=== PATIENT | female | born 1950 | race Caucasian/White ===

== ENCOUNTER 2016-04-24 12:33 | Inpatient (IN) ==
[2016-04-24] MEDS ORDERED: 0.9 % SODIUM CHLORIDE 1,000 ML IV ONE (12:59)
--- NOTE | 2016-04-24 13:07 | Emergency Department Note ---
General Adult HPI - General Chief complaint: Weakness Stated complaint: lethargy, weakness Time Seen by Provider: 04/24/16 12:49 Source: patient Mode of arrival: EMS - History of Present Illness HPI Narrative: Patient presents, increasing altered status and weakness., Brought in from home. Concern by family as she was continues knocker oxygen off inadvertently. Recent epistaxis with cautery, pending visit with ENT. No further epistaxis. No cough about baseline, no pleurisy. Taking her meds as usual by report. Patient otherwise limited history due to somnolence. Family member at the bedside - Related Data Home Medications Medication Instructions Recorded Confirmed Aspirin [Lo-Dose Aspirin EC] 81 mg PO ONCE 11/10/15 04/24/16 Lubiprostone [Amitiza] 24 mcg PO BID 11/10/15 04/24/16 DULoxetine HCL [Cymbalta] 60 mg PO DAILY 11/11/15 04/24/16 Ipratropium/Albuterol Sulfate 1 puff INH QIDP 11/11/15 04/24/16 [Combivent] Lactulose [Enulose] 30 gm PO BID PRN 11/11/15 04/24/16 Nitroglycerin [Nitrostat] 0.4 mg SL Q5M PRN 11/11/15 04/24/16 oxyCODONE HCL/ACETAMINOPHEN 1 tab PO Q4H PRN MDD 5 11/11/15 04/24/16 [Percocet 10-325 mg Tablet] cholecalciferol (vitamin D3) 1,000 1,000 unit PO ONCE 02/11/16 04/24/16 unit capsule ferrous sulfate 325 mg (65 mg 325 mg PO .QOD tab 02/11/16 04/24/16 iron) tablet clopidogrel 75 mg tablet 75 mg PO QDAY 90 Days 04/13/16 04/24/16 Previous Rx's Medication Instructions Recorded LORazepam [Ativan] 0.5 mg PO Q4HP PRN #14 tab 11/15/15 fluticasone 200 mcg-vilanterol 25 1 inh INHALATION QDAY #30 each 12/16/15 mcg/dose powder for inhalation atorvastatin 10 mg tablet 10 mg PO QDAY #60 tab 01/20/16 potassium chloride ER 10 mEq 20 meq PO BID #120 tab 01/20/16 tablet,extended release torsemide 20 mg tablet 20 mg PO DAILY #30 tab 02/01/16 gabapentin 300 mg capsule 300 mg PO TID #90 cap 02/03/16 spironolactone 25 mg tablet 25 mg PO DAILY #30 tab 03/02/16 gabapentin 100 mg capsule 100 mg PO TID #90 cap 03/13/16 metolazone 5 mg tablet 5 mg PO QDAY #30 tab 03/14/16 linaclotide 290 mcg capsule 290 mcg PO ACB #30 cap 03/20/16 Allergies Allergy/AdvReac Type Severity Reaction Status Date / Time doxycycline [DOXYCYCLINE] AdvReac Intermediate GI Upset Verified 04/24/16 12:46 levofloxacin AdvReac Intermediate Itching Verified 04/24/16 12:46 morphine AdvReac Mild Nausea/Vomi Verified 04/24/16 12:46 ting Review of Systems All systems ED: reviewed and negative except as stated. Past Medical History - Past Medical History Attestation: Yes: The following information was validated with the patient. Medical history: Reports: arthritis, CHF, COPD, coronary artery disease, diabetes, hyperlipidemia, hypertension, renal disease, other Surgical history ED: Reports: appendectomy, cataract, hysterectomy, orthopedic, other, other Psychiatric history: Reports: anxiety, depression [employer] history: Reports: bilateral tubal ligation, other Family history: Reports: non-contributory - Social History smoking status: Current every day smoker Alcohol use: Reports: None Drug use: Reports: none Physical Exam - General Limitations: no limitations General appearance: obtunded (arouses to name, brief history) - Head Head exam: atraumatic - Eye Eye exam: Present: normal appearance - ENT ENT exam: normal exam, mucous membranes moist - Neck Neck exam: Present: normal inspection. Absent: lymphadenopathy - Respiratory Respiratory exam: Present: other (no labored breathing; short excursions; diminished breath sounds bilateral bases). Absent: respiratory distress - Cardiovascular Cardiovascular exam: Present: regular rate, normal rhythm - Abdominal Exam Abdominal exam: Present: soft. Absent: tenderness - Extremities Exam Extremities exam: Present: normal inspection. Absent: pedal edema - Back Exam Back exam: Present: normal inspection - Neurological Exam Neurological exam: Present: alert, oriented X3 - Psychiatric Psychiatric exam: Present: normal affect - Skin Skin exam: Present: warm, dry. Absent: cyanosis Course Vital Signs Temperature 97.6 F 04/24/16 12:41 Pulse Rate 94 H 04/24/16 12:41 Respiratory Rate 18 04/24/16 12:41 Blood Pressure 128/75 04/24/16 12:41 Pulse Oximetry (%) 100 04/24/16 12:41 Temperature 97.6 F 04/24/16 12:41 Pulse Rate 99 H 04/24/16 14:50 Respiratory Rate 20 04/24/16 14:50 Blood Pressure 136/62 04/24/16 14:50 Pulse Oximetry (%) 100 04/24/16 14:50 Medical Decision Making - Medical Records Medical records reviewed: Yes I reviewed the patient's medical records. - Lab Data Lab results reviewed: Yes I reviewed the patient's lab results. Result diagrams: 04/24/16 13:08 04/24/16 13:08 Lab Results 04/24/16 04/24/16 04/24/16 Range/Units 13:08 13:08 13:08 WBC 9.8 (4.5-11.0) K/mcL RBC 3.28 L (4.00-5.20) M/mcL Hgb 10.0 L (12.0-15.0) g/dL Hct 30.8 L (36.0-48.0) % MCV 94.1 (80.0-100.0) fL MCH 30.6 (26.0-34.0) pg MCHC 32.5 (31.0-36.0) g/dL RDW 15.0 H (11.5-14.5) % Plt Count 278 (140-440) K/mcL MPV 8.0 (7.4-10.4) fL Gran % 81.3 H (38.0-78.0) % Lymph % (Auto) 7.6 L (15.5-49.0) % Fleming % (Auto) 10.4 H (1.0-9.0) % Eos % (Auto) 0.6 (0.0-7.0) % Baso % (Auto) 0.1 (0.0-2.0) % Gran # 8.0 (1.8-8.0) K/mcL Lymph # 0.7 L (1.5-4.8) K/mcL Fleming # 1.0 H (0.1-0.9) K/mcL Eos # 0.1 (0.0-0.7) K/mcL Baso # 0 (0.0-0.3) K/mcL VBG Lactic Acid 0.9 (0.5-2.2) mmol/L Sodium 130 L (133-145) mmol/L Potassium 4.2 (3.3-5.1) mmol/L Chloride 79 L (96-108) mmol/L Carbon Dioxide 43 H* (22-30) mmol/L Anion Gap 8.0 (8-16) BUN 25 H (8-23) mg/dl Creatinine 1.0 (0.6-1.1) mg/dl GFR Calculation 58 Glucose 107 H (70-105) mg/dL Calcium 8.8 (8.6-10.4) mg/dl Total Bilirubin 0.6 (0.0-1.0) mg/dL AST 992 H (0-37) U/l ALT 738 H (0-40) U/l Alkaline Phosphatase 69 (39-117) U/L Total Protein 6.2 (5.9-8.4) gm/dL Albumin 3.9 (3.2-5.2) gm/dL Globulin 2.3 (2.2-3.7) gm/dL Albumin/Globulin Ratio 1.7 (1.0-2.3) - Radiology Data Radiology results reviewed: Yes I reviewed the patient's radiology results. left basilar pneumonia Disposition Clinical Impression: Hypercapnia, COPD exacerbation Left lower lobe pneumonia Qualifiers: Pneumonia type: due to unspecified organism Qualified Code(s): J18.1 - Lobar pneumonia, unspecified organism Disposition: Xfer As Inpt ([facility]) Condition: Fair Additional Instructions: DNR, DNI; willing for BiPAP Referrals: Dino Jenkins MD [Primary Care Provider] -
[2016-04-24] MEDS ORDERED: AZITHROMYCIN 250 MG TABLET PO ONE (13:31)
[2016-04-24] MEDS ORDERED: IPRATROPIUM/ALBUTEROL 3 ML AMPUL.NEB NEB ONE (13:31)
[2016-04-24] MEDS ORDERED: methylPREDNISolone SOD SUCC 125 MG/2 ML VIAL IV ONE (13:31)
[2016-04-24 13:53] LABS: Basophils # (Auto) 0 K/mcL (0.0-0.3); Basophils % (Auto) 0.1 % (0.0-2.0); Eosinophils # (Auto) 0.1 K/mcL (0.0-0.7); Eosinophils % (Auto) 0.6 % (0.0-7.0); Granulocytes % (Auto) 81.3 % (38.0-78.0); Lymphocytes # (Auto) 0.7 K/mcL (1.5-4.8); Lymphocytes % (Auto) 7.6 % (15.5-49.0); Mean Cell Volume 94.1 fL (80.0-100.0); Mean Corpuscular HGB Conc 32.5 g/dL (31.0-36.0); Mean Corpuscular Hemoglobin 30.6 pg (26.0-34.0); Monocytes % (Auto) 10.4 % (1.0-9.0); Platelet Count 278 K/mcL (140-440); RBC 3.28 M/mcL (4.00-5.20)
[2016-04-24 14:21] LABS: ALT/SGPT 738 U/l (0-40); Albumin 3.9 gm/dL (3.2-5.2); Albumin/Globulin Ratio 1.7 (1.0-2.3); Alkaline Phosphatase 69 U/L (39-117); Blood Urea Nitrogen 25 mg/dl (8-23)
--- NOTE | 2016-04-24 14:52 | XRay Report ---
HISTORY: Reason for Exam:AMS, hypoxia lethargy and weakness FINDINGS: There are is a subtle interstitial infiltrate above the left diaphragm and behind the left heart border. Thin band of discoid atelectasis has developed above the right diaphragm. These are new finding since 12/21/15. The mid and upper lung chaves are clear. The heart size and pulmonary vasculature are normal. A moderate amount calcified plaque is present along the wall of a normal caliber aorta. 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 This was confirmed on a prior chest CT. IMPRESSION: Mild interstitial infiltrate in the left lower lobe which could be atelectasis or pneumonia. Interpreted and Authenticated by: Earl Peralta 04/24/16
[2016-04-24] MEDS ORDERED: cefTRIAXone 1 GM in DEXTROSE 5% IN WATER 50 ML IV ONE (14:59)
[2016-04-24] MEDS ORDERED: NITROGLYCERIN 0.4 MG TAB.SUBL SL PRN (16:49)
[2016-04-24] MEDS ORDERED: ONDANSETRON 4 MG/2 ML VIAL IV PRN (16:49)
[2016-04-24] MEDS ORDERED: LORazepam 0.5 MG TABLET PO PRN (16:49)
[2016-04-24] MEDS ORDERED: ACETAMINOPHEN 325 MG TABLET PO PRN (16:49)
[2016-04-24] MEDS ORDERED: VANCOMYCIN PER PHARMACY IV ONE (16:49)
[2016-04-24] MEDS ORDERED: ACETAMINOPHEN 1,000 MG/100 ML BOTTLE IV PRN (16:49)
[2016-04-24 17:57] LABS: Hepatitis A Antibody IgM NON REACTIVE (NEGATIVE); Hepatitis B Core IgM NON REACTIVE (NEGATIVE); Hepatitis B Surface Antigen NEGATIVE (NEGATIVE); Hepatitis C Virus Antibody NON REACTIVE (NEGATIVE)
[2016-04-24] MEDS: IPRATROPIUM/ALBUTEROL 3 ML AMPUL.NEB NEB SCH ×2 (18:55→22:42)
[2016-04-24] MEDS: 0.9 % SODIUM CHLORIDE 1,000 ML IV SCH (18:58)
[2016-04-24] MEDS: BUDESONIDE 0.5 MG/2 ML AMPUL.NEB NEB SCH (18:59)
[2016-04-24] MEDS ORDERED: LEVOFLOXACIN 750 MG/150 ML BAG IV SCH (19:00)
[2016-04-24] MEDS ORDERED: PIPERACILLIN SODIUM/TAZOBACTAM 3.375 GM VIAL IV ONE (19:09)
[2016-04-24] MEDS ORDERED: VANCOMYCIN 500 MG VIAL ONE (19:10)
[2016-04-24] MEDS: PIPERACILLIN SODIUM/TAZOBACTAM 3.375 GM in DEXTROSE 5% IN WATER 50 ML IV SCH (19:18)
[2016-04-24] MEDS ORDERED: VANCOMYCIN 1,000 MG in 0.9 % SODIUM CHLORIDE 250 ML IV ONE (20:00)
[2016-04-24] MEDS ORDERED: LACTULOSE 20 GM/30 ML ORAL.SOL PO PRN (21:00)
[2016-04-24] MEDS: methylPREDNISolone SOD SUCC 125 MG/2 ML VIAL IV SCH (21:35)
[2016-04-24] MEDS: HEPARIN 5,000 UNIT/ML VIAL SQ SCH (21:35)
[2016-04-24] MEDS: DOCUSATE SODIUM 100 MG CAPSULE PO SCH (21:35)
[2016-04-24] MEDS: SENNOSIDES/DOCUSATE SODIUM 1 TAB TABLET PO SCH (21:35)
[2016-04-24] MEDS: 0.9 % SODIUM CHLORIDE 10 ML SYRINGE IV SCH (21:36)
[2016-04-24] MEDS: Lubiprostone [Amitiza] 24 mcg Cap PO SCH (21:36)
[2016-04-24] MEDS: GABAPENTIN 100 MG CAPSULE PO SCH (21:56)
[2016-04-24] MEDS: ATORVASTATIN 20 MG TABLET PO SCH (21:57)
[2016-04-24] MEDS: GABAPENTIN 300 MG CAPSULE PO SCH (21:57)
[2016-04-24] MEDS ORDERED: GABAPENTIN 300 MG CAPSULE ONE (22:03)
[2016-04-24] MEDS ORDERED: GABAPENTIN 100 MG CAPSULE PO ONE (22:03)
[2016-04-24] MEDS ORDERED: LORazepam 2 MG/ML VIAL IV PRN (22:35)
[2016-04-24] MEDS ORDERED: LORazepam 2 MG/ML VIAL ONE (22:50)
[2016-04-25] MEDS ORDERED: LORazepam 2 MG/ML VIAL ONE ×2 (00:15→00:57)
[2016-04-25] MEDS ORDERED: PIPERACILLIN SODIUM/TAZOBACTAM 3.375 GM VIAL IV ONE ×2 (00:28→05:43)
[2016-04-25] MEDS: PIPERACILLIN SODIUM/TAZOBACTAM 3.375 GM in DEXTROSE 5% IN WATER 50 ML IV SCH ×5 (00:29→23:24)
[2016-04-25] MEDS: IPRATROPIUM/ALBUTEROL 3 ML AMPUL.NEB NEB SCH ×6 (02:46→22:54)
[2016-04-25 05:35] LABS: Mean Cell Volume 94.2 fL (80.0-100.0); Mean Corpuscular HGB Conc 32.7 g/dL (31.0-36.0); Mean Corpuscular Hemoglobin 30.8 pg (26.0-34.0); Platelet Count 282 K/mcL (140-440); RBC 3.52 M/mcL (4.00-5.20); Red Cell Distribution Width 14.6 % (11.5-14.5)
[2016-04-25] MEDS: methylPREDNISolone SOD SUCC 125 MG/2 ML VIAL IV SCH ×3 (05:46→23:24)
[2016-04-25] MEDS: 0.9 % SODIUM CHLORIDE 10 ML SYRINGE IV SCH ×4 (05:47→23:30)
[2016-04-25 06:17] LABS: ALT/SGPT 556 U/l (0-40); Albumin 3.9 gm/dL (3.2-5.2); Albumin/Globulin Ratio 1.6 (1.0-2.3); Alkaline Phosphatase 71 U/L (39-117); Bilirubin,Direct < 0.2 mg/dL (0.0-0.3); Blood Urea Nitrogen 18 mg/dl (8-23); Gamma Glutamyl Transpeptidase 11 U/L (5-36); Magnesium 1.7 mg/dL (1.6-2.5); Phosphorous 2.5 mg/dL (2.7-4.5); Uric Acid 4.3 mg/dL (2.5-8.0)
[2016-04-25 06:27] LABS: Anisocytosis 1+ (NONE SEEN); Lymphocytes % 6 % (15-49); Monocytes % (Manual) 4 % (1-9); Platelet Estimate NORMAL (NORMAL); RBC Morphology ABNORM (NORMAL); Segmented Neutrophils % 89 % (38-78)
--- NOTE | 2016-04-25 06:54 | History and Physical Report ---
DATE OF ADMISSION: 04/24/2016 PRIMARY CARE PHYSICIAN: Kurt Jenkins MD REASON FOR ADMISSION: Worsening shortness of breath, weakness, cough, fever and mental status change. HISTORY OF CHIEF COMPLAINT: The patient is a 66-year-old with known history of advanced COPD with baseline CO2 around 70s. The patient comes to [facility] ER with 5 to 6 days onset of worsening shortness of breath with dyspnea on exertion and increased productive sputum along with purulent sputum. The patient denies any sick contacts. She has been up to date on vaccination status and sees primary care physician, Dr. Jenkins. Her last flare was in November of this year. She has been chronically on home oxygen. Other than that, she denies headache, photophobia, or myalgias. She endorses to increasing fever, weakness, confusion, but denies dysuria. She endorses to on and off diarrhea. She denies chest pain, nausea, vomiting, skin rash, joint swelling and pain. REVIEW OF SYSTEMS: Ten-point review of system was performed and negative except the ones discussed above. HOSPITAL COURSE: Initial workup in the ER was significant for left lower lobe infiltrate along with blood gas 7.42/82 and significant work of breathing requiring 15 liters oxygen and signs of SIRS. Hospitalist Service was consulted for the same. The patient was started on BiPAP. PAST MEDICAL HISTORY: 1. History of O2 dependent COPD, GOLD stage III/stage IV. 2. Chronic pain. 3. Hyperlipidemia. 4. GERD. 5. Hypertension. 6. Neuropathy. 7. Anxiety disorder. 8. Irritable bowel syndrome. CURRENT MEDICATIONS: 1. Aspirin 81. 2. Duloxetine 60 mg. 3. DuoNeb as needed. 4. Lorazepam 0.5 mg q.4h. 5. Lactulose 30 mg b.i.d. 6. Lubiprostone 24 mg b.i.d. 7. Nitroglycerin 0.4 mg q.5h. 8. Atorvastatin 10 mg daily. 9. Plavix 75 mg daily. 10. Advair inhaled b.i.d. 11. Gabapentin 100 mg t.i.d./300 mg t.i.d. 12. Linaclotide 290 a.c. breakfast. 13. Metolazone 5 mg daily. 14. Spironolactone 25 mg daily. 15. Potassium 20 mEq daily. 16. Torsemide 20 mg daily. ALLERGIES: Known to: 1. DOXYCYCLINE. 2. CIPROFLOXAXIN. 3. MORPHINE. SOCIAL HISTORY: The patient is to her , Jesus and lives in [place]. She has a granddaughter who lives nearby. She is actively smoking E-cigarettes. No history of alcoholism. She is a FULL CODE STATUS. She sees primary care physician, Dr. Jenkins. FAMILY HISTORY: Significant for brother and sister with diabetes; CVA in brother; father coronary artery disease. PHYSICAL EXAMINATION: GENERAL: The patient is remarkably short of breath and unable to talk in full sentences. BMI 31. Height 5 feet 1 inch. VITAL SIGNS: Blood pressure 120/75, respiration rate 21, temperature 97.6, pulse 97 and sats 100% on 15 liters nonrebreather. HEENT: Pupils symmetric. Oral cavity is dry. No ear or nose discharge. Head is normocephalic and atraumatic. NECK: No lymphadenopathy. HEART: S1, S2 regular rhythm. Ejection systolic murmur grade 1. Diminished breath sounds at bases. ABDOMEN: Soft and nontender. LOWER EXTREMITIES: No cyanosis or clubbing. No joint swelling. SKIN: No suspicious lesion. PSYCH: Alert and cooperative, moderate anxiety, but no hallucination. NEURO: Moving all four extremities. LABS AND IMAGING: ABG 7.42/82/3.9 on 15 liters oxygen. X-ray chest: Left lower lobe infiltrate, white count 9.8, hemoglobin 10, platelets 278, lactic acid 0.9. Sodium 130, potassium 4.2, creatinine 1, BUN 25, bicarbonate 43, AST 992, ALT 738. ASSESSMENT AND PLAN: A 66-year-old with known history of COPD, admitted with acute respiratory distress, COPD exacerbation, left lower lobe pneumonia. 1. Acute COPD exacerbation. Start patient on steroids, bronchodilators, pulmonary toilet. 2. Hypercapnic respiratory failure, increased work of breathing. Start patient on noninvasive ventilation. The patient is refusing mechanical ventilation at this time. We will check serial chest imaging and blood gases. 3. Left lower lobe pneumonia with recent healthcare exposure. Start Zosyn, vancomycin and Levaquin and deescalate based on cultures. Await sputum exam, procalcitonin. 4. Elevated LFTs, unclear etiology. Check hepatitis panel, unlikely core pulmonale as last echo from 06/2015 no evidence of pulmonary hypertension. 5. Other prior medical issues including: a. History of neuropathy. Continue gabapentin. b. Anxiety disorder. Continue Duloxetine. c. Coronary artery disease. Continue aspirin, statin and Plavix. PLAN FOR TODAY: 1. Admit as inpatient in ICU in light of [place] [facility] [place] score of 18. 2. Noninvasive ventilation. 3. Antibiotic coverage. 4. Hepatitis workup. 5. Preexisting medical condition management as above. AA:waldo Job ID: [id number] Doc ID: [id number] Flaco Jenkins MD [facility]
[2016-04-25] MEDS: BUDESONIDE 0.5 MG/2 ML AMPUL.NEB NEB SCH ×2 (07:38→18:59)
[2016-04-25] MEDS: PANTOPRAZOLE 40 MG TABLET PO SCH (07:56)
[2016-04-25] MEDS: METOLAZONE 2.5 MG TABLET PO SCH (08:00)
[2016-04-25] MEDS: POTASSIUM CHLORIDE 20 MEQ TABLET PO SCH ×2 (08:00→17:40)
[2016-04-25] MEDS: CLOPIDOGREL 75 MG TABLET PO SCH (10:48)
[2016-04-25] MEDS: DOCUSATE SODIUM 100 MG CAPSULE PO SCH ×2 (10:49→20:26)
[2016-04-25] MEDS: MULTIVIT,THER IRON,CA,FA & MIN 1 TABLET PO SCH (10:49)
[2016-04-25] MEDS: TORSEMIDE 10 MG TABLET PO SCH (10:49)
[2016-04-25] MEDS: ASPIRIN 81 MG TAB.CHEW PO SCH (10:49)
[2016-04-25] MEDS: SPIRONOLACTONE 25 MG TABLET PO SCH (10:49)
[2016-04-25] MEDS: HEPARIN 5,000 UNIT/ML VIAL SQ SCH ×2 (10:50→20:26)
[2016-04-25] MEDS: Lubiprostone [Amitiza] 24 mcg Cap PO SCH ×2 (10:50→20:26)
[2016-04-25] MEDS: Fluticasone/Vilanterol [Breo Ellipta] 200-25 Mcg Inhaler INH SCH (10:50)
[2016-04-25] MEDS: DULoxetine 30 MG CAPSULE PO SCH (10:53)
[2016-04-25] MEDS: GABAPENTIN 100 MG CAPSULE PO SCH ×3 (10:54→20:26)
[2016-04-25] MEDS: GABAPENTIN 300 MG CAPSULE PO SCH ×3 (10:54→20:26)
--- NOTE | 2016-04-25 13:32 | Internal Med Progress Note ---
Medical - PN: Subj Patient information: Note initiated : 04/25/16 at 1:32 pm Service Date, if different from initiated Date: [] Patient: Loraine Howard 66 y/o F admitted on 04/24/16 for lethargy, weakness. Chief Complaint: [] Interval history: this patient is a 66-year-old femalewith known advanced COPD and baseline CO2 in the 70s. She presented to the emergency room yesterday with increasing shortness of breath and productive cough.ER workup showed left lower lobe infiltrate, and elevated CO2 of 82, with increased work of breathing.he patient was admitted and started on IV steroids, bronchodilators, BiPAP to help support her breathing, IV antibiotics.she was initially started on Zosyn, vancomycin, and Levaquin but the Levaquin was canceled when it was discovered she was allergic to this. the patient became somewhat agitated last night, and tried to pull out her lines etc. Because nursing staff was concerned about her past history of alcohol use, she was started on the CIWA protocol and was given IV Ativan. This did help her sleep overnight, but she is still quite groggy this morning. She seems to be tolerating the BiPAP. She does report that she continues to have chronic diffuse pain. She otherwise seems to deny chest pain, nausea or vomiting. She thinks her breathing is a little bit better. she was weaned from the BiPAP and 35% FiO2, over 2a nasal cannula at 1.5 L. Follow-up ABG on those settingsshowed pH of 7.43, CO2 of 76, O2 of 62, 92% saturated past medical history is notable for COPD, chronic pain with possible medication overuse, hyperlipidemia, GERD, hypertension, neuropathy, anxiety, IBS allergies include doxycycline, ciprofloxacin, Levaquin, morphinenext Social history the patient smokes E cigarettes. She denies alcohol use, although staff believe that she has been using alcohol recently. - Constitutional Vitals: Vital Signs Temp Pulse Resp BP Pulse Ox 97.4 F L 97 H 22 127/67 90 04/25/16 12:00 04/25/16 11:17 04/25/16 13:00 04/25/16 13:00 04/25/16 13:00 Period Temp Pulse Resp BP Sys/Cano Pulse Ox Last 24 Hr 97.4 F-99.2 F 87-106 14-25 105-152/64-94 88-97 Intake and Output 04/24/16 04/25/16 04/25/16 21:59 05:59 13:59 Intake Total 572 / 572 833 / 833 Output Total 250 / 250 1350 / 1350 720 / 720 Balance -250 / 800 -778 / -778 113 / 113 Weight 169 lb 4.8 oz Intake & Output: Intake & Output 04/24/16 04/25/16 04/25/16 21:59 05:59 13:59 Intake Total 572 / 572 833 / 833 Output Total 250 / 250 1350 / 1350 720 / 720 Balance -250 / 800 -778 / -778 113 / 113 Weight 169 lb 4.8 oz Intake: IV 542 / 542 333 / 333 Sodium Chloride 0.9% 1, 542 / 542 283 / 283 000 ml @ 50 mls/hr IV . Q20H SARI Rx#:[id number] Dextrose 5% in Water 50 50 / 50 ml @ 100 mls/hr IV Q6H SARI with Zosyn 3.375 gm Rx#:[id number] Oral 30 / 30 IV - Manual Only 500 / 500 Output: Urine Catheter Amount 1150 / 1150 720 / 720 Void Amount 250 / 250 200 / 200 Exam: on exam, she is fairly somnolent, although she will open her eyes to voice and touch. neck appears supple, without obvious JVD or lymphadenopathy. Cardiac exam showsregular rhythm. Lungs: Breath sounds are fairly decreased, but i do not hear definite rhonchi, rales, wheezes. Abdomen: Is soft and nontender. Extremities: Show no significant edema. Neurologic: Patient is fairly somnolent. Medical - PN: Obj Da - Labs CBC & Chem 7: 04/25/16 03:40 04/25/16 03:40 Labs: Abnormal Lab Results 04/25/16 04/25/16 03:40 03:40 RBC 3.52 L Hgb 10.8 L Hct 33.2 L RDW 14.6 H Seg Neutrophils % 89 H Lymphocytes % 6 L RBC Morphology Abnorm A Anisocytosis 1+ A Sodium 132 L Chloride 82 L Carbon Dioxide 39 H Glucose 138 H Phosphorus 2.5 L AST 433 H ALT 556 H Lactate Dehydrogenase 280 H hepatitis screen is negative for hepatitis A, B, C. MRSA screen is negative. blood cultures are negative so far. April 24, 2016, chest x-ray: Shows mild interstitial infiltrate in the left lower lobe, infiltrate versus atelectasis.here is also a thin BM of discoid atelectasis noted above the right diaphragm. 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 Meds: Medications Acetaminophen (Tylenol) 650 mg PO Q4-6HP PRN PRN Reason: PAIN/FEVER > 101 Albuterol/Ipratropium (Duoneb) 3 ml NEB Q4HRT [facility] Last Admin: 04/25/16 11:14 Dose: 3 ml Aspirin (Aspirin) 81 mg PO DAILY [facility] Last Admin: 04/25/16 10:49 Dose: 81 mg Atorvastatin Calcium (Lipitor) 10 mg PO HS [facility] Last Admin: 04/24/16 21:57 Dose: 10 mg Budesonide (Pulmicort) 0.5 mg NEB Q12 [facility] Last Admin: 04/25/16 07:38 Dose: 0.5 mg Clopidogrel Bisulfate (Plavix) 75 mg PO QDAY [facility] Last Admin: 04/25/16 10:48 Dose: 75 mg Docusate Sodium (Colace) 100 mg PO BID [facility] Last Admin: 04/25/16 10:49 Dose: 100 mg Duloxetine HCl (Cymbalta) 60 mg PO DAILY [facility] Last Admin: 04/25/16 10:53 Dose: 60 mg Gabapentin (Neurontin) 100 mg PO TID [facility] Last Admin: 04/25/16 10:54 Dose: Not Given Gabapentin (Neurontin) 300 mg PO TID [facility] Last Admin: 04/25/16 10:54 Dose: Not Given Heparin Sodium (Porcine) (Heparin) 5,000 unit SQ Q12 [facility] Last Admin: 04/25/16 10:50 Dose: 5,000 unit Sodium Chloride (Sodium Chloride 0.9%) 1,000 mls @ 50 mls/hr IV .Q20H [facility] Stop: 04/27/16 04:48 Last Infusion: 04/25/16 13:00 Dose: 50 mls/hr Acetaminophen (Ofirmev) 1,000 mg in 100 mls @ 200 mls/hr IV Q6HP PRN PRN Reason: PAIN/FEVER > 101 Piperacillin Sod/Tazobactam (Sod 3.375 gm/ Dextrose) 50 mls @ 100 mls/hr IV Q6H [facility] Last Infusion: 04/25/16 13:00 Dose: Infused Vancomycin HCl 1,000 mg/ (Sodium Chloride) 250 mls @ 250 mls/hr IV DAILY [facility] Iron Carb/Multivit/[place]/Folic Acid (Multivitamin W/Minerals) 1 tab PO DAILY [facility] Last Admin: 04/25/16 10:49 Dose: 1 tab Lactulose (Cephulac) 20 gm PO BIDP PRN PRN Reason: Constipation Lorazepam (Ativan) 0.5 mg PO Q4HP PRN PRN Reason: ANXIETY/SEDATION Lorazepam (Ativan) 2 mg IV Q1HP PRN; Protocol PRN Reason: ANXIETY/SEDATION Last Admin: 04/24/16 22:39 Dose: 2 mg Methylprednisolone Sodium Succinate (Solu-Medrol) 62.5 mg IV Q8 [facility] Last Admin: 04/25/16 13:25 Dose: 62.5 mg Metolazone (Zaroxolyn) 5 mg PO DAILY@0830 [facility] Last Admin: 04/25/16 08:00 Dose: 5 mg Nitroglycerin (Nitrostat) 0.4 mg SL Q5M PRN PRN Reason: Chest Pain Ondansetron HCl (Zofran) 4 mg IV Q4-6HP PRN PRN Reason: Nausea And Vomiting Oxycodone/Acetaminophen (Percocet 10-325mg) 1 tab PO Q4H PRN PRN Reason: Pain Pantoprazole Sodium (Protonix) 40 mg PO QAMAC [facility] Last Admin: 04/25/16 07:56 Dose: 40 mg Fluticasone/Vilanterol [Breo Ellipta] 200-25 Mcg Inhaler 1 dose INH DAILY [facility] Last Admin: 04/25/16 10:50 Dose: Not Given Linaclotide [Linzess (] 290 Mcg Cap) 1 dose PO ACB [facility] Last Admin: 04/25/16 07:56 Dose: Not Given Lubiprostone [ (Amitiza] 24 Mcg Cap) 1 dose PO BID [facility] Last Admin: 04/25/16 10:50 Dose: Not Given Potassium Chloride (Kdur) 20 meq PO BIDCC [facility] Last Admin: 04/25/16 08:00 Dose: 20 meq Senna/Docusate Sodium (Senna Plus Tablet) 1 tab PO HS [facility] Last Admin: 04/24/16 21:35 Dose: 1 tab Sodium Chloride (Saline Flush) 10 ml IV Q8 [facility] Last Admin: 04/25/16 13:25 Dose: 10 ml Spironolactone (Aldactone) 25 mg PO DAILY [facility] Last Admin: 04/25/16 10:49 Dose: 25 mg Torsemide (Demadex) 20 mg PO DAILY [facility] Last Admin: 04/25/16 10:49 Dose: 20 mg Medical - PN: A/P - Time Spent With Patient Total time spent is greater than 50% in coordination of care (as documented) at patient's floor/unit and/or counseling patient: - Narrative A/P Narrative: 1. Pulmonary. - this patient presents with hypercapnic respiratory failure, consistent with COPD exacerbation with superimposed pneumonia. she has done well overnight on BiPAP and was weaned back to oxygen via nasal cannula today.so far she appears to be tolerating this. -Continue IV antibiotics and steroids, bronchodilators, pulmonary toilet. #2. Infectious disease. Blood and sputum cultures have been ordered.chest x-ray consistent with left lower lobe pneumonia. We will need to clarify if the patient is up-to-date on flu and pneumonia vaccines. #3. . the patient was uncomfortable during the night, and was found to have an elevated postvoid residual, so Lackey catheter was placed. #4. Chronic pain. this patient takes Percocet at home for chronic pain, and there is concern that she overuses this. after the course of the afternoon the patient has had some increasing ectopy on her heart monitor, and has been intermittently confused. There is some concern that she could be having some withdrawal from oxycodone, given that she uses one Percocet about every4 hours at home, according to her report.she also is a chronic smoker at home. we will add back when necessary Percocet as well as a nicotine patch, to see if this helpsher to relax. #5. CODE STATUS: Full code.the patient was unable to decide about ventilator management when she arrived here. #6. DVT prophylaxis:subcutaneous heparin. #7. History of coronary disease. Continue aspirin, statin, Plavix. this visit took approximately 40 minutes today,to review the patient's bullard and test results, interview and examine her, review her course and plan of care with nursing staff on multiple occasions, and write orders. Medical - PN: Qual - VTE Deep Vein Thrombosis/Pulmonary Embolism Present on Admission: No
[2016-04-25] MEDS: VANCOMYCIN 1,000 MG in 0.9 % SODIUM CHLORIDE 250 ML IV SCH (13:51)
[2016-04-25] MEDS ORDERED: MAGNESIUM SULFATE 8.12 MEQ in DEXTROSE 5% IN WATER 50 ML IV ONE (15:00)
[2016-04-25] MEDS: 0.9 % SODIUM CHLORIDE 1,000 ML IV SCH (20:11)
[2016-04-25] MEDS: oxyCODONE/APAP 10/325MG TABLET PO PRN (20:25)
[2016-04-25] MEDS: SENNOSIDES/DOCUSATE SODIUM 1 TAB TABLET PO SCH (20:26)
[2016-04-25] MEDS: ATORVASTATIN 20 MG TABLET PO SCH (20:26)
[2016-04-26] MEDS: IPRATROPIUM/ALBUTEROL 3 ML AMPUL.NEB NEB SCH ×6 (03:24→22:23)
[2016-04-26] MEDS: PIPERACILLIN SODIUM/TAZOBACTAM 3.375 GM in DEXTROSE 5% IN WATER 50 ML IV SCH ×4 (05:23→23:34)
[2016-04-26] MEDS: methylPREDNISolone SOD SUCC 125 MG/2 ML VIAL IV SCH ×3 (05:23→21:25)
[2016-04-26] MEDS: 0.9 % SODIUM CHLORIDE 10 ML SYRINGE IV SCH ×3 (05:41→21:25)
[2016-04-26 05:43] LABS: Mean Cell Volume 94.8 fL (80.0-100.0); Mean Corpuscular HGB Conc 32.2 g/dL (31.0-36.0); Mean Corpuscular Hemoglobin 30.5 pg (26.0-34.0); Platelet Count 310 K/mcL (140-440); RBC 3.59 M/mcL (4.00-5.20)
[2016-04-26 05:57] LABS: ALT/SGPT 366 U/l (0-40); Albumin 3.9 gm/dL (3.2-5.2); Albumin/Globulin Ratio 1.8 (1.0-2.3); Alkaline Phosphatase 62 U/L (39-117); Bilirubin,Direct < 0.2 mg/dL (0.0-0.3); Blood Urea Nitrogen 21 mg/dl (8-23); Gamma Glutamyl Transpeptidase 10 U/L (5-36); Magnesium 1.9 mg/dL (1.6-2.5)
[2016-04-26] MEDS: BUDESONIDE 0.5 MG/2 ML AMPUL.NEB NEB SCH ×3 (07:13→18:50)
[2016-04-26 07:26] LABS: Lymphocytes % 5 % (15-49); Monocytes % (Manual) 9 % (1-9); Platelet Estimate NORMAL (NORMAL); RBC Morphology NORMAL (NORMAL); Segmented Neutrophils % 86 % (38-78)
[2016-04-26] MEDS: PANTOPRAZOLE 40 MG TABLET PO SCH (07:32)
[2016-04-26] MEDS: METOLAZONE 2.5 MG TABLET PO SCH (08:08)
[2016-04-26] MEDS: POTASSIUM CHLORIDE 20 MEQ TABLET PO SCH ×2 (09:57→17:46)
[2016-04-26] MEDS: DOCUSATE SODIUM 100 MG CAPSULE PO SCH ×2 (09:58→20:39)
[2016-04-26] MEDS: DULoxetine 30 MG CAPSULE PO SCH (09:58)
[2016-04-26] MEDS: ASPIRIN 81 MG TAB.CHEW PO SCH (09:58)
[2016-04-26] MEDS: TORSEMIDE 10 MG TABLET PO SCH (09:58)
[2016-04-26] MEDS: SPIRONOLACTONE 25 MG TABLET PO SCH (09:58)
[2016-04-26] MEDS: 0.9 % SODIUM CHLORIDE 1,000 ML IV SCH (09:58)
[2016-04-26] MEDS: GABAPENTIN 300 MG CAPSULE PO SCH ×3 (09:59→20:40)
[2016-04-26] MEDS: MULTIVIT,THER IRON,CA,FA & MIN 1 TABLET PO SCH (09:59)
[2016-04-26] MEDS: CLOPIDOGREL 75 MG TABLET PO SCH (09:59)
[2016-04-26] MEDS: Lubiprostone [Amitiza] 24 mcg Cap PO SCH ×2 (09:59→20:41)
[2016-04-26] MEDS: GABAPENTIN 100 MG CAPSULE PO SCH ×3 (09:59→20:40)
[2016-04-26] MEDS: HEPARIN 5,000 UNIT/ML VIAL SQ SCH ×2 (09:59→20:40)
[2016-04-26] MEDS: Fluticasone/Vilanterol [Breo Ellipta] 200-25 Mcg Inhaler INH SCH (10:15)
[2016-04-26] MEDS: NICOTINE 7 MG PATCH TOPICAL SCH (10:16)
[2016-04-26] MEDS: VANCOMYCIN 1,000 MG in 0.9 % SODIUM CHLORIDE 250 ML IV SCH (10:16)
--- NOTE | 2016-04-26 10:31 | Internal Med Progress Note ---
Medical - PN: Subj Patient information: Note initiated : 04/26/16 at 10:31 am Service Date, if different from initiated Date: [] Patient: Loraine Howard 66 y/o F admitted on 04/24/16 for lethargy, weakness. Chief Complaint: [] Interval history: April 25, 2016:this patient is a 66-year-old female with known advanced COPD and baseline CO2 in the 70s. She presented to the emergency room yesterday with increasing shortness of breath and productive cough.ER workup showed left lower lobe infiltrate, and elevated CO2 of 82, with increased work of breathing.he patient was admitted and started on IV steroids, bronchodilators, BiPAP to help support her breathing, IV antibiotics.she was initially started on Zosyn, vancomycin, and Levaquin but the Levaquin was canceled when it was discovered she was allergic to this. the patient became somewhat agitated last night, and tried to pull out her lines etc. Because nursing staff was concerned about her past history of alcohol use, she was started on the CIWA protocol and was given IV Ativan. This did help her sleep overnight, but she is still quite groggy this morning. She seems to be tolerating the BiPAP. She does report that she continues to have chronic diffuse pain. She otherwise seems to deny chest pain, nausea or vomiting. She thinks her breathing is a little bit better. she was weaned from the BiPAP and 35% FiO2, over 2a nasal cannula at 1.5 L. Follow-up ABG on those settingsshowed pH of 7.43, CO2 of 76, O2 of 62, 92% saturated April 26, 2016: -She patient was again weaned off her BiPAP during the night and is now maintaining an O2 saturation of around 90% on 2 L nasal cannula. She is more awake and alert today but still has intermittent episodes of somnolence. She cannot quite recall where she was this morning. She denies pain at this time, but admits that she was taking pain medication every 4-6 hours at home, but cannot really articulate why at this time. Her has indicated to the nursing staff that he really cannot keep track of when she takes her medicines and when she does not. She has declined home health assistance in the past. -she continues to exhibit some ectopy on her monitor, but otherwise has clinically been fairly stable. he denies significant pain currently. She denies chest pain, and reports her breathing is better. She denies abdominal symptoms. past medical history is notable for COPD, chronic pain with possible medication overuse, hyperlipidemia, GERD, hypertension, neuropathy, anxiety, IBS allergies include doxycycline, ciprofloxacin, Levaquin, morphinenext Social history the patient smokes E cigarettes. She denies alcohol use, although staff believe that she has been using alcohol recently. - Constitutional Vitals: Vital Signs Temp Pulse Resp BP Pulse Ox 97.5 F L 92 H 17 117/71 91 04/26/16 08:00 04/26/16 09:00 04/26/16 09:00 04/26/16 09:00 04/26/16 09:00 Period Temp Pulse Resp BP Sys/Cano Pulse Ox Last 24 Hr 97.3 F-98.0 F 80-109 15-24 110-151/52-81 87-96 Intake and Output 04/25/16 04/26/16 04/26/16 21:59 05:59 13:59 Intake Total 485 / 485 938 / 938 50 / 50 Output Total 695 / 695 600 / 600 300 / 300 Balance -210 / -210 338 / 338 -250 / -250 Weight 166 lb 6.4 oz Intake & Output: Intake & Output 04/25/16 04/26/16 04/26/16 21:59 05:59 13:59 Intake Total 485 / 485 938 / 938 50 / 50 Output Total 695 / 695 600 / 600 300 / 300 Balance -210 / -210 338 / 338 -250 / -250 Weight 166 lb 6.4 oz Intake: IV 485 / 485 513 / 513 50 / 50 Sodium Chloride 0.9% 1, 133 / 133 463 / 463 0 / 0 000 ml @ 50 mls/hr IV . Q20H SARI Rx#:[id number] Dextrose 5% in Water 50 52 / 52 ml @ 52 mls/hr IV ONCE ONE with Magnesium Sulfate 8.12 Meq Rx#: [id number] Dextrose 5% in Water 50 50 / 50 50 / 50 50 / 50 ml @ 100 mls/hr IV Q6H SARI with Zosyn 3.375 gm Rx#:[id number] Sodium Chloride 0.9% 250 250 / 250 ml @ 250 mls/hr IV DAILY SARI with Vancomycin 1,000 mg Rx#:[id number] Oral 425 / 425 Output: Urine Catheter Amount 695 / 695 600 / 600 300 / 300 Exam: At the time that I saw her this morning, she was quite somnolent. she is able to open her eyes on command.Neck is supple without obvious lymphadenopathy or JVD. Cardiac exam regular rate and rhythm. Lungs: Show bilateral scattered crackles and wheezes, but no sensory muscle use. Abdomen: Is soft and nontender. Extremities: Show minimal edema. Neurologic: The patient continues to have intermittent somnolence, possibly related to pain medication, or hypercarbia. Medical - PN: Obj Da - Labs CBC & Chem 7: 04/26/16 04:15 04/26/16 04:15 Labs: Abnormal Lab Results 04/26/16 04/26/16 04/25/16 04:15 04:15 03:40 RBC 3.59 L Hgb 10.9 L Hct 34.0 L RDW 15.0 H Seg Neutrophils % 86 H Lymphocytes % 5 L RBC Morphology Anisocytosis Sodium 132 L Chloride 86 L 82 L Carbon Dioxide 41 H* 39 H Glucose 124 H 138 H Phosphorus 2.5 L AST 148 H 433 H ALT 366 H 556 H Lactate Dehydrogenase 280 H 04/25/16 03:40 RBC 3.52 L Hgb 10.8 L Hct 33.2 L RDW 14.6 H Seg Neutrophils % 89 H Lymphocytes % 6 L RBC Morphology Abnorm A Anisocytosis 1+ A Sodium Chloride Carbon Dioxide Glucose Phosphorus AST ALT Lactate Dehydrogenase hepatitis screen is negative for hepatitis A, B, C. MRSA screen is negative. blood cultures are negative so far. April 24, 2016, chest x-ray: Shows mild interstitial infiltrate in the left lower lobe, infiltrate versus atelectasis.here is also a thin BM of discoid atelectasis noted above the right diaphragm. 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 Meds: Medications Acetaminophen (Tylenol) 650 mg PO Q4-6HP PRN PRN Reason: PAIN/FEVER > 101 Albuterol/Ipratropium (Duoneb) 3 ml NEB Q4HRT [facility] Last Admin: 04/26/16 07:13 Dose: 3 ml Aspirin (Aspirin) 81 mg PO DAILY [facility] Last Admin: 04/26/16 09:58 Dose: 81 mg Atorvastatin Calcium (Lipitor) 10 mg PO HS [facility] Last Admin: 04/25/16 20:26 Dose: 10 mg Budesonide (Pulmicort) 0.5 mg NEB Q12 [facility] Last Admin: 04/26/16 07:13 Dose: 0.5 mg Clopidogrel Bisulfate (Plavix) 75 mg PO QDAY [facility] Last Admin: 04/26/16 09:59 Dose: 75 mg Docusate Sodium (Colace) 100 mg PO BID [facility] Last Admin: 04/26/16 09:58 Dose: 100 mg Duloxetine HCl (Cymbalta) 60 mg PO DAILY [facility] Last Admin: 04/26/16 09:58 Dose: 60 mg Gabapentin (Neurontin) 100 mg PO TID [facility] Last Admin: 04/26/16 09:59 Dose: 100 mg Gabapentin (Neurontin) 300 mg PO TID [facility] Last Admin: 04/26/16 09:59 Dose: 300 mg Heparin Sodium (Porcine) (Heparin) 5,000 unit SQ Q12 [facility] Last Admin: 04/26/16 09:59 Dose: 5,000 unit Sodium Chloride (Sodium Chloride 0.9%) 1,000 mls @ 50 mls/hr IV .Q20H [facility] Stop: 04/27/16 04:48 Last Admin: 04/26/16 09:58 Dose: Not Given Acetaminophen (Ofirmev) 1,000 mg in 100 mls @ 200 mls/hr IV Q6HP PRN PRN Reason: PAIN/FEVER > 101 Piperacillin Sod/Tazobactam (Sod 3.375 gm/ Dextrose) 50 mls @ 100 mls/hr IV Q6H [facility] Last Infusion: 04/26/16 06:21 Dose: Infused Vancomycin HCl 1,000 mg/ (Sodium Chloride) 250 mls @ 250 mls/hr IV DAILY [facility] Last Admin: 04/26/16 10:16 Dose: 125 mls/hr Iron Carb/Multivit/Brick Extruder Operator/Folic Acid (Multivitamin W/Minerals) 1 tab PO DAILY [facility] Last Admin: 04/26/16 09:59 Dose: 1 tab Lactulose (Cephulac) 20 gm PO BIDP PRN PRN Reason: Constipation Lorazepam (Ativan) 0.5 mg PO Q4HP PRN PRN Reason: ANXIETY/SEDATION Lorazepam (Ativan) 2 mg IV Q1HP PRN; Protocol PRN Reason: ANXIETY/SEDATION Last Admin: 04/24/16 22:39 Dose: 2 mg Methylprednisolone Sodium Succinate (Solu-Medrol) 62.5 mg IV Q8 [facility] Last Admin: 04/26/16 05:23 Dose: 62.5 mg Metolazone (Zaroxolyn) 5 mg PO DAILY@0830 [facility] Last Admin: 04/26/16 08:08 Dose: 5 mg Nicotine (Nicoderm) 7 mg TOPICAL DAILY@1000 [facility] Last Admin: 04/26/16 10:16 Dose: Not Given Nitroglycerin (Nitrostat) 0.4 mg SL Q5M PRN PRN Reason: Chest Pain Ondansetron HCl (Zofran) 4 mg IV Q4-6HP PRN PRN Reason: Nausea And Vomiting Oxycodone/Acetaminophen (Percocet 10-325mg) 1 tab PO Q4H PRN PRN Reason: Pain Last Admin: 04/25/16 20:25 Dose: 1 tab Pantoprazole Sodium (Protonix) 40 mg PO QAMAC [facility] Last Admin: 04/26/16 07:32 Dose: 40 mg Fluticasone/Vilanterol [Breo Ellipta] 200-25 Mcg Inhaler 1 dose INH DAILY [facility] Last Admin: 04/26/16 10:15 Dose: Not Given Linaclotide [Linzess (] 290 Mcg Cap) 1 dose PO ACB [facility] Last Admin: 04/26/16 07:31 Dose: 1 dose Lubiprostone [ (Amitiza] 24 Mcg Cap) 1 dose PO BID [facility] Last Admin: 04/26/16 09:59 Dose: 1 dose Potassium Chloride (Kdur) 20 meq PO BIDCC [facility] Last Admin: 04/26/16 09:57 Dose: 20 meq Senna/Docusate Sodium (Senna Plus Tablet) 1 tab PO HS [facility] Last Admin: 04/25/16 20:26 Dose: 1 tab Sodium Chloride (Saline Flush) 10 ml IV Q8 [facility] Last Admin: 04/26/16 05:41 Dose: Not Given Spironolactone (Aldactone) 25 mg PO DAILY [facility] Last Admin: 04/26/16 09:58 Dose: 25 mg Torsemide (Demadex) 20 mg PO DAILY [facility] Last Admin: 04/26/16 09:58 Dose: 20 mg Medical - PN: A/P - Time Spent With Patient Total time spent is greater than 50% in coordination of care (as documented) at patient's floor/unit and/or counseling patient: - Narrative A/P Narrative: 1. Pulmonary. - this patient presents with hypercapnic respiratory failure, consistent with COPD exacerbation with superimposed pneumonia. she has done well on BiPAP and was weaned back to oxygen via nasal cannula today.so far she appears to be tolerating this. -Continue IV antibiotics and steroids, bronchodilators, pulmonary toilet. We will try harder to maintain O2 saturation of 88-90%, to try to keep her PCO2 at baseline. -Tobacco abuse. NicoDerm patch was alsostarted yesterday. #2. Infectious disease. Blood and sputum cultures have been ordered.chest x-ray consistent with left lower lobe pneumonia. We will need to clarify if the patient is up-to-date on flu and pneumonia vaccines. #3. . the patient was uncomfortable , and was found to have an elevated postvoid residual, so Lackey catheter was placed. #4. Chronic pain. this patient takes Percocet at home for chronic pain, and there is concern that she overuses this. we did wonder yesterday she was having some withdrawal, so low-dose Percocet was resumed. #5. CODE STATUS: Full code.the patient was unable to decide about ventilator management when she arrived here. #6. DVT prophylaxis:subcutaneous heparin. #7. History of coronary disease. Continue aspirin, statin, Plavix. #8.last physical therapy to try again tomorrow to work with the patient as her level of alertness is improving. so far today, this is taken approximately 35 minutes, to review test results, interview and examine the patient, review plan of care with nursing staff,meet with her to review plan of care, and write orders. Medical - PN: Qual - VTE Deep Vein Thrombosis/Pulmonary Embolism Present on Admission: No
[2016-04-26] MEDS: SENNOSIDES/DOCUSATE SODIUM 1 TAB TABLET PO SCH (20:39)
[2016-04-26] MEDS: ATORVASTATIN 20 MG TABLET PO SCH (20:47)
[2016-04-27] MEDS: oxyCODONE/APAP 10/325MG TABLET PO PRN ×3 (01:40→22:41)
[2016-04-27] MEDS: IPRATROPIUM/ALBUTEROL 3 ML AMPUL.NEB NEB SCH ×6 (02:41→22:18)
[2016-04-27 05:56] LABS: Mean Cell Volume 95.4 fL (80.0-100.0); Mean Corpuscular HGB Conc 31.8 g/dL (31.0-36.0); Mean Corpuscular Hemoglobin 30.3 pg (26.0-34.0); Platelet Count 303 K/mcL (140-440); RBC 3.39 M/mcL (4.00-5.20)
[2016-04-27] MEDS: methylPREDNISolone SOD SUCC 125 MG/2 ML VIAL IV SCH ×2 (06:13→13:49)
[2016-04-27] MEDS: PIPERACILLIN SODIUM/TAZOBACTAM 3.375 GM in DEXTROSE 5% IN WATER 50 ML IV SCH ×3 (06:13→17:47)
[2016-04-27] MEDS: 0.9 % SODIUM CHLORIDE 10 ML SYRINGE IV SCH ×3 (06:14→20:27)
[2016-04-27 06:35] LABS: ALT/SGPT 247 U/l (0-40); Albumin 3.9 gm/dL (3.2-5.2); Albumin/Globulin Ratio 2.2 (1.0-2.3); Alkaline Phosphatase 56 U/L (39-117); Bilirubin,Direct < 0.2 mg/dL (0.0-0.3); Blood Urea Nitrogen 17 mg/dl (8-23); Gamma Glutamyl Transpeptidase 14 U/L (5-36); Magnesium 1.6 mg/dL (1.6-2.5); Phosphorous 2.8 mg/dL (2.7-4.5); Uric Acid 3.7 mg/dL (2.5-8.0)
[2016-04-27] MEDS: BUDESONIDE 0.5 MG/2 ML AMPUL.NEB NEB SCH ×2 (07:22→19:39)
[2016-04-27 08:20] LABS: Anisocytosis 1+ (NONE SEEN); Lymphocytes % 8 % (15-49); Monocytes % (Manual) 8 % (1-9); Platelet Estimate NORMAL (NORMAL); RBC Morphology ABNORM (NORMAL); Segmented Neutrophils % 83 % (38-78)
[2016-04-27] MEDS: ASPIRIN 81 MG TAB.CHEW PO SCH (08:47)
[2016-04-27] MEDS: DULoxetine 30 MG CAPSULE PO SCH (08:47)
[2016-04-27] MEDS: GABAPENTIN 100 MG CAPSULE PO SCH ×3 (08:47→20:24)
[2016-04-27] MEDS: CLOPIDOGREL 75 MG TABLET PO SCH (08:47)
[2016-04-27] MEDS: METOLAZONE 2.5 MG TABLET PO SCH (08:47)
[2016-04-27] MEDS: TORSEMIDE 10 MG TABLET PO SCH (08:48)
[2016-04-27] MEDS: SPIRONOLACTONE 25 MG TABLET PO SCH (08:48)
[2016-04-27] MEDS: DOCUSATE SODIUM 100 MG CAPSULE PO SCH ×2 (08:48→20:24)
[2016-04-27] MEDS: MULTIVIT,THER IRON,CA,FA & MIN 1 TABLET PO SCH (08:48)
[2016-04-27] MEDS: POTASSIUM CHLORIDE 20 MEQ TABLET PO SCH ×2 (08:48→17:47)
[2016-04-27] MEDS: VANCOMYCIN 1,000 MG in 0.9 % SODIUM CHLORIDE 250 ML IV SCH (08:48)
[2016-04-27] MEDS: HEPARIN 5,000 UNIT/ML VIAL SQ SCH (08:48)
[2016-04-27] MEDS: GABAPENTIN 300 MG CAPSULE PO SCH ×3 (08:48→20:24)
[2016-04-27] MEDS: PANTOPRAZOLE 40 MG TABLET PO SCH (08:48)
[2016-04-27] MEDS: Fluticasone/Vilanterol [Breo Ellipta] 200-25 Mcg Inhaler INH SCH (08:49)
[2016-04-27] MEDS: Lubiprostone [Amitiza] 24 mcg Cap PO SCH ×2 (08:49→20:25)
[2016-04-27] MEDS: NICOTINE 7 MG PATCH TOPICAL SCH (09:50)
--- NOTE | 2016-04-27 13:20 | Internal Med Progress Note ---
Medical - PN: Subj Patient information: Note initiated : 04/27/16 at 1:20 pm Service Date, if different from initiated Date: [] Patient: Loraine Howard 66 y/o F admitted on 04/24/16 for lethargy, weakness. Chief Complaint: [] Interval history: April 25, 2016:this patient is a 66-year-old female with known advanced COPD and baseline CO2 in the 70s. She presented to the emergency room yesterday with increasing shortness of breath and productive cough.ER workup showed left lower lobe infiltrate, and elevated CO2 of 82, with increased work of breathing.he patient was admitted and started on IV steroids, bronchodilators, BiPAP to help support her breathing, IV antibiotics.she was initially started on Zosyn, vancomycin, and Levaquin but the Levaquin was canceled when it was discovered she was allergic to this. the patient became somewhat agitated last night, and tried to pull out her lines etc. Because nursing staff was concerned about her past history of alcohol use, she was started on the CIWA protocol and was given IV Ativan. This did help her sleep overnight, but she is still quite groggy this morning. She seems to be tolerating the BiPAP. She does report that she continues to have chronic diffuse pain. She otherwise seems to deny chest pain, nausea or vomiting. She thinks her breathing is a little bit better. she was weaned from the BiPAP and 35% FiO2, over 2a nasal cannula at 1.5 L. Follow-up ABG on those settingsshowed pH of 7.43, CO2 of 76, O2 of 62, 92% saturated April 26, 2016: -She patient was again weaned off her BiPAP during the night and is now maintaining an O2 saturation of around 90% on 2 L nasal cannula. She is more awake and alert today but still has intermittent episodes of somnolence. She cannot quite recall where she was this morning. She denies pain at this time, but admits that she was taking pain medication every 4-6 hours at home, but cannot really articulate why at this time. Her has indicated to the nursing staff that he really cannot keep track of when she takes her medicines and when she does not. She has declined home health assistance in the past. -she continues to exhibit some ectopy on her monitor, but otherwise has clinically been fairly stable. he denies significant pain currently. She denies chest pain, and reports her breathing is better. She denies abdominal symptoms. April 27, 2016: today, the patient that she is feeling quite a bit better. She is no longer requiring BiPAP, and was able to walk with physical therapy today although her O2 saturations drop some with ambulation. HER o2 SATURATIONS ARE QUITE LABILE, AND SOMETIMES SHE IS AT 95% ON ROOM AIR, AND AT OTHER TIMES DROPS DOWN INTO THE LOW 80S. she says she only intermittently feels short of breath now and does feel that her dyspnea with exertion has decreased. Her confusion is also quite a bit improved, as is her cough. Nurses note she is having less ectopy on her heart monitor now as well. She otherwise denies fever or chills, chest pain or palpitations, abdominal pain , nausea or vomiting diarrhea or dysuria. She admits that sometimes she gets confused about her medications at home, as she does not always have a pillbox set up, and then can forget whether or not she took her medications. In the past she has always set up her own pillbox. It sounds like her really does not help out with this. I believe he went over to her pharmacy yesterday, to see about perhaps getting a bubble pack. past medical history is notable for COPD, chronic pain with possible medication overuse, hyperlipidemia, GERD, hypertension, neuropathy, anxiety, IBS allergies include doxycycline, ciprofloxacin, Levaquin, morphinenext Social history the patient smokes E cigarettes. She denies alcohol use, although staff believe that she has been using alcohol recently. - Constitutional Vitals: Vital Signs Temp Pulse Resp BP Pulse Ox 97.3 F L 100 H 20 145/94 94 04/27/16 12:00 04/27/16 12:00 04/27/16 12:00 04/27/16 12:00 04/27/16 12:00 Period Temp Pulse Resp BP Sys/Cano Pulse Ox Last 24 Hr 97.0 F-98.2 F 89-102 15-22 106-145/49-94 87-96 Intake and Output 04/26/16 04/27/16 04/27/16 21:59 05:59 13:59 Intake Total 1187 / 1187 350 / 350 300 / 300 Output Total 575 / 575 1600 / 1600 Balance 612 / 612 -1250 / -1250 300 / 300 Weight 168 lb Intake & Output: Intake & Output 04/26/16 04/27/16 04/27/16 21:59 05:59 13:59 Intake Total 1187 / 1187 350 / 350 300 / 300 Output Total 575 / 575 1600 / 1600 Balance 612 / 612 -1250 / -1250 300 / 300 Weight 168 lb Intake: IV 637 / 637 50 / 50 300 / 300 Sodium Chloride 0.9% 1, 537 / 537 000 ml @ 50 mls/hr IV . Q20H SARI Rx#:[id number] Dextrose 5% in Water 50 100 / 100 50 / 50 50 / 50 ml @ 100 mls/hr IV Q6H SARI with Zosyn 3.375 gm Rx#:[id number] Sodium Chloride 0.9% 250 250 / 250 ml @ 250 mls/hr IV DAILY SARI with Vancomycin 1,000 mg Rx#:[id number] Oral 550 / 550 300 / 300 Output: Urine Catheter Amount 575 / 575 1600 / 1600 Other: # Bowel Movements 1 0 1 Exam: the patient is awake and alert.Neck is supple without obvious lymphadenopathy or JVD. Cardiac exam shows regular rate and rhythm. Lung exam; Better air movement than yesterday, she still has soft end expiratory wheezes but no sensory muscle use. Abdomen is soft and nontender. Extremities show no significant edema.Neurologic: The patient is more awake and alert today, but is probably still forgetful. Medical - PN: Obj Da - Labs CBC & Chem 7: 04/27/16 04:35 04/27/16 04:35 Labs: Abnormal Lab Results 04/27/16 04/27/16 04/26/16 04:35 04:35 04:15 RBC 3.39 L Hgb 10.3 L Hct 32.3 L RDW 15.0 H Seg Neutrophils % 83 H Lymphocytes % 8 L RBC Morphology Abnorm A Anisocytosis 1+ A Sodium Chloride 87 L 86 L Carbon Dioxide 43 H* 41 H* Anion Gap 5.0 L Glucose 146 H 124 H Phosphorus AST 52 H 148 H ALT 247 H 366 H Lactate Dehydrogenase Total Protein 5.7 L Globulin 1.8 L 04/26/16 04/25/16 04/25/16 04:15 03:40 03:40 RBC 3.59 L 3.52 L Hgb 10.9 L 10.8 L Hct 34.0 L 33.2 L RDW 15.0 H 14.6 H Seg Neutrophils % 86 H 89 H Lymphocytes % 5 L 6 L RBC Morphology Abnorm A Anisocytosis 1+ A Sodium 132 L Chloride 82 L Carbon Dioxide 39 H Anion Gap Glucose 138 H Phosphorus 2.5 L AST 433 H ALT 556 H Lactate Dehydrogenase 280 H Total Protein Globulin aBG from April 27: PH is 7.48, PCO2 72, PO2 50, [id number] O2 saturation 91% , on 0.5 L oxygen via nasal cannula. hepatitis screen is negative for hepatitis A, B, C. MRSA screen is negative. blood cultures are negative so far. April 24, 2016, chest x-ray: Shows mild interstitial infiltrate in the left lower lobe, infiltrate versus atelectasis.here is also a thin BM of discoid atelectasis noted above the right diaphragm. 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 Meds: Medications Acetaminophen (Tylenol) 650 mg PO Q4-6HP PRN PRN Reason: PAIN/FEVER > 101 Albuterol/Ipratropium (Duoneb) 3 ml NEB Q4HRT [facility] Last Admin: 04/27/16 10:51 Dose: 3 ml Aspirin (Aspirin) 81 mg PO DAILY [facility] Last Admin: 04/27/16 08:47 Dose: 81 mg Atorvastatin Calcium (Lipitor) 10 mg PO HS [facility] Last Admin: 04/26/16 20:47 Dose: 10 mg Budesonide (Pulmicort) 0.5 mg NEB Q12 [facility] Last Admin: 04/27/16 07:22 Dose: 0.5 mg Clopidogrel Bisulfate (Plavix) 75 mg PO QDAY [facility] Last Admin: 04/27/16 08:47 Dose: 75 mg Docusate Sodium (Colace) 100 mg PO BID [facility] Last Admin: 04/27/16 08:48 Dose: 100 mg Duloxetine HCl (Cymbalta) 60 mg PO DAILY [facility] Last Admin: 04/27/16 08:47 Dose: 60 mg Gabapentin (Neurontin) 100 mg PO TID [facility] Last Admin: 04/27/16 08:47 Dose: 100 mg Gabapentin (Neurontin) 300 mg PO TID [facility] Last Admin: 04/27/16 08:48 Dose: 300 mg Heparin Sodium (Porcine) (Heparin) 5,000 unit SQ Q12 [facility] Last Admin: 04/27/16 08:48 Dose: 5,000 unit Acetaminophen (Ofirmev) 1,000 mg in 100 mls @ 200 mls/hr IV Q6HP PRN PRN Reason: PAIN/FEVER > 101 Piperacillin Sod/Tazobactam (Sod 3.375 gm/ Dextrose) 50 mls @ 100 mls/hr IV Q6H [facility] Last Admin: 04/27/16 12:57 Dose: 100 mls/hr Vancomycin HCl 1,000 mg/ (Sodium Chloride) 250 mls @ 250 mls/hr IV DAILY [facility] Last Infusion: 04/27/16 10:31 Dose: Infused Iron Carb/Multivit/[place] [employer]/Folic Acid (Multivitamin W/Minerals) 1 tab PO DAILY [facility] Last Admin: 04/27/16 08:48 Dose: 1 tab Lactulose (Cephulac) 20 gm PO BIDP PRN PRN Reason: Constipation Lorazepam (Ativan) 0.5 mg PO Q4HP PRN PRN Reason: ANXIETY/SEDATION Last Admin: 04/26/16 20:39 Dose: 0.5 mg Lorazepam (Ativan) 2 mg IV Q1HP PRN; Protocol PRN Reason: ANXIETY/SEDATION Last Admin: 04/24/16 22:39 Dose: 2 mg Methylprednisolone Sodium Succinate (Solu-Medrol) 62.5 mg IV Q8 [facility] Last Admin: 04/27/16 06:13 Dose: 62.5 mg Metolazone (Zaroxolyn) 5 mg PO DAILY@0830 [facility] Last Admin: 04/27/16 08:47 Dose: 5 mg Nicotine (Nicoderm) 7 mg TOPICAL DAILY@1000 [facility] Last Admin: 04/27/16 09:50 Dose: 7 mg Nitroglycerin (Nitrostat) 0.4 mg SL Q5M PRN PRN Reason: Chest Pain Ondansetron HCl (Zofran) 4 mg IV Q4-6HP PRN PRN Reason: Nausea And Vomiting Oxycodone/Acetaminophen (Percocet 10-325mg) 1 tab PO Q4H PRN PRN Reason: Pain Last Admin: 04/27/16 01:40 Dose: 1 tab Pantoprazole Sodium (Protonix) 40 mg PO QAMAC [facility] Last Admin: 04/27/16 08:48 Dose: 40 mg Fluticasone/Vilanterol [Breo Ellipta] 200-25 Mcg Inhaler 1 dose INH DAILY [facility] Last Admin: 04/27/16 08:49 Dose: Not Given Linaclotide [Linzess (] 290 Mcg Cap) 1 dose PO ACB [facility] Last Admin: 04/27/16 08:49 Dose: 1 dose Lubiprostone [ (Amitiza] 24 Mcg Cap) 1 dose PO BID [facility] Last Admin: 04/27/16 08:49 Dose: 1 dose Potassium Chloride (Kdur) 20 meq PO BIDCC [facility] Last Admin: 04/27/16 08:48 Dose: 20 meq Senna/Docusate Sodium (Senna Plus Tablet) 1 tab PO HS [facility] Last Admin: 04/26/16 20:39 Dose: 1 tab Sodium Chloride (Saline Flush) 10 ml IV Q8 [facility] Last Admin: 04/27/16 06:14 Dose: 10 ml Spironolactone (Aldactone) 25 mg PO DAILY [facility] Last Admin: 04/27/16 08:48 Dose: 25 mg Torsemide (Demadex) 20 mg PO DAILY [facility] Last Admin: 04/27/16 08:48 Dose: 20 mg Medical - PN: A/P - Time Spent With Patient Total time spent is greater than 50% in coordination of care (as documented) at patient's floor/unit and/or counseling patient: - Narrative A/P Narrative: 1. Pulmonary. - this patient presents with hypercapnic respiratory failure, consistent with COPD exacerbation with superimposed pneumonia. she has done well on BiPAP and was weaned back to oxygen via nasal cannula today.so far she appears to be tolerating this. -Continue IV antibiotics and steroids, bronchodilators, pulmonary toilet. We will try harder to maintain O2 saturation of 88-90%, to try to keep her PCO2 at baseline. Serum bicarbonate level has been rising , likely due to excess oxygen and CO2 retention, with compensatory metabolic alkalosis.. -Tobacco abuse. NicoDerm patch was also started . I discussed her E cigarettes again with her today. We discussed that those may not be safe either, and that there may be a risk of sparkle orfire with them, and she should certainly not use the new her oxygen.. #2. Infectious disease. Blood and sputum cultures have been ordered.chest x-ray consistent with left lower lobe pneumonia. We will need to clarify if the patient is up-to-date on flu and pneumonia vaccines. #3. . the patient was uncomfortable , and was found to have an elevated postvoid residual, so Lackey catheter was placed. we will try discontinuing this today, and check postvoid residuals. #4. Chronic pain. this patient takes Percocet at home for chronic pain, and there is concern that she overuses this. he patient does have an implanted pain pump. There is still concern that she is not adequately manage her pain medications at home. #5. CODE STATUS: Full code.the patient was unable to decide about ventilator management when she arrived here. #6. DVT prophylaxis:subcutaneous heparin. #7. History of coronary disease. Continue aspirin, statin, Plavix. #8. did ask physical therapy to try again to work with the patient as her level of alertness is improving.i also discussed with the patient she should consider any physical therapy that the therapist recommend, as we would like to her lower risk of falls. She seems willing to consider this. this visit took approximately 30 minutes today, to review her test results, interview and examine her, review plan of care with her as well as with her nurse, and write orders. Medical - PN: Qual - VTE Deep Vein Thrombosis/Pulmonary Embolism Present on Admission: No
[2016-04-27] MEDS ORDERED: LACTULOSE 20 GM/30 ML ORAL.SOL PO PRN (17:52)
[2016-04-27] MEDS ORDERED: LORazepam 0.5 MG TABLET PO PRN (17:52)
[2016-04-27] MEDS ORDERED: LORazepam 2 MG/ML VIAL IV PRN (17:52)
[2016-04-27] MEDS ORDERED: NITROGLYCERIN 0.4 MG TAB.SUBL SL PRN (17:52)
[2016-04-27] MEDS ORDERED: ACETAMINOPHEN 1,000 MG/100 ML BOTTLE IV PRN (17:52)
[2016-04-27] MEDS ORDERED: ONDANSETRON 4 MG/2 ML VIAL IV PRN (17:52)
[2016-04-27] MEDS ORDERED: ACETAMINOPHEN 325 MG TABLET PO PRN (17:52)
[2016-04-27] MEDS ORDERED: ATORVASTATIN 20 MG TABLET PO SCH (21:00)
[2016-04-27] MEDS ORDERED: SENNOSIDES/DOCUSATE SODIUM 1 TAB TABLET PO SCH (21:00)
[2016-04-28] MEDS: PIPERACILLIN SODIUM/TAZOBACTAM 3.375 GM in DEXTROSE 5% IN WATER 50 ML IV SCH ×3 (00:05→12:53)
[2016-04-28] MEDS: IPRATROPIUM/ALBUTEROL 3 ML AMPUL.NEB NEB SCH ×3 (03:23→10:46)
[2016-04-28] MEDS: 0.9 % SODIUM CHLORIDE 10 ML SYRINGE IV SCH ×2 (05:19→14:20)
[2016-04-28 06:14] LABS: Mean Cell Volume 94.4 fL (80.0-100.0); Mean Corpuscular HGB Conc 32.2 g/dL (31.0-36.0); Mean Corpuscular Hemoglobin 30.4 pg (26.0-34.0); Platelet Count 300 K/mcL (140-440); RBC 3.85 M/mcL (4.00-5.20); Red Cell Distribution Width 14.9 % (11.5-14.5)
[2016-04-28 06:45] LABS: ALT/SGPT 194 U/l (0-40); Albumin 3.8 gm/dL (3.2-5.2); Albumin/Globulin Ratio 1.7 (1.0-2.3); Alkaline Phosphatase 58 U/L (39-117); Bilirubin,Direct < 0.2 mg/dL (0.0-0.3); Blood Urea Nitrogen 15 mg/dl (8-23); Gamma Glutamyl Transpeptidase 12 U/L (5-36); Magnesium 1.5 mg/dL (1.6-2.5); Phosphorous 3.4 mg/dL (2.7-4.5); Uric Acid 3.8 mg/dL (2.5-8.0)
[2016-04-28 06:59] LABS: Lymphocytes % 15 % (15-49); Monocytes % (Manual) 16 % (1-9); Platelet Estimate NORMAL (NORMAL); RBC Morphology NORMAL (NORMAL); Segmented Neutrophils % 66 % (38-78)
[2016-04-28] MEDS: oxyCODONE/APAP 10/325MG TABLET PO PRN ×2 (07:17→14:19)
[2016-04-28] MEDS ORDERED: PANTOPRAZOLE 40 MG TABLET PO SCH (07:30)
[2016-04-28] MEDS: BUDESONIDE 0.5 MG/2 ML AMPUL.NEB NEB SCH (07:46)
[2016-04-28] MEDS ORDERED: POTASSIUM CHLORIDE 20 MEQ TABLET PO SCH (08:00)
[2016-04-28] MEDS ORDERED: predniSONE 20 MG TABLET PO SCH (08:00)
[2016-04-28] MEDS ORDERED: METOLAZONE 2.5 MG TABLET PO SCH (08:30)
[2016-04-28] MEDS ORDERED: VANCOMYCIN 1,000 MG in 0.9 % SODIUM CHLORIDE 250 ML IV SCH (09:00)
[2016-04-28] MEDS ORDERED: ASPIRIN 81 MG TAB.CHEW PO SCH (09:00)
[2016-04-28] MEDS ORDERED: DULoxetine 30 MG CAPSULE PO SCH (09:00)
[2016-04-28] MEDS ORDERED: CLOPIDOGREL 75 MG TABLET PO SCH (09:00)
[2016-04-28] MEDS ORDERED: TORSEMIDE 10 MG TABLET PO SCH (09:00)
[2016-04-28] MEDS ORDERED: MULTIVIT,THER IRON,CA,FA & MIN 1 TABLET PO SCH (09:00)
[2016-04-28] MEDS ORDERED: SPIRONOLACTONE 25 MG TABLET PO SCH (09:00)
[2016-04-28] MEDS ORDERED: Fluticasone/Vilanterol [Breo Ellipta] 200-25 Mcg Inhaler INH SCH (09:00)
[2016-04-28] MEDS: Lubiprostone [Amitiza] 24 mcg Cap PO SCH (09:46)
[2016-04-28] MEDS: DOCUSATE SODIUM 100 MG CAPSULE PO SCH (09:47)
[2016-04-28] MEDS: GABAPENTIN 100 MG CAPSULE PO SCH (09:48)
[2016-04-28] MEDS: GABAPENTIN 300 MG CAPSULE PO SCH (09:48)
[2016-04-28] MEDS ORDERED: NICOTINE 7 MG PATCH TOPICAL SCH (10:00)
--- NOTE | 2016-04-28 12:31 | Discharge Summary ---
Medical - DS: Prov Patient information: Note initiated : 04/28/16 at 12:29 pm Service Date, if different from initiated Date: [] Patient: Loraine Howard 66 y/o F admitted on 04/24/16 for lethargy, weakness. Chief Complaint: [] Date of admission: 04/24/16 16:42 Discharge date: 04/28/16 Primary care physician: [Dr.Christophe Jenkins] Admitting clinician: Flaco Chen Attending physician on discharge: [facility] - DS: Meds - Discharge Medications Prescriptions: Amoxicillin/Potassium Clav [Augmentin] 875 mg PO Q12H #12 tablet oxyCODONE/APAP [Percocet 10-325Mg] 1 tab PO Q6H PRN #10 tablet PRN Reason: Pain predniSONE [Prednisone] 10 mg PO QAMCC #12 tablet Active and Home Medications: Active Medications Acetaminophen (Tylenol) 650 mg PO Q4-6HP PRN PRN Reason: PAIN/FEVER > 101 Albuterol/Ipratropium (Duoneb) 3 ml NEB Q4HRT [facility] Last Admin: 04/28/16 10:46 Dose: 3 ml Aspirin (Aspirin) 81 mg PO DAILY [facility] Last Admin: 04/28/16 09:46 Dose: 81 mg Atorvastatin Calcium (Lipitor) 10 mg PO HS [facility] Last Admin: 04/27/16 20:25 Dose: 10 mg Budesonide (Pulmicort) 0.5 mg NEB Q12 [facility] Last Admin: 04/28/16 07:46 Dose: 0.5 mg Clopidogrel Bisulfate (Plavix) 75 mg PO QDAY [facility] Last Admin: 04/28/16 09:44 Dose: 75 mg Docusate Sodium (Colace) 100 mg PO BID [facility] Last Admin: 04/28/16 09:47 Dose: Not Given Duloxetine HCl (Cymbalta) 60 mg PO DAILY [facility] Last Admin: 04/28/16 09:47 Dose: Not Given Gabapentin (Neurontin) 100 mg PO TID [facility] Last Admin: 04/28/16 09:48 Dose: Not Given Gabapentin (Neurontin) 300 mg PO TID [facility] Last Admin: 04/28/16 09:48 Dose: Not Given Acetaminophen (Ofirmev) 1,000 mg in 100 mls @ 200 mls/hr IV Q6HP PRN PRN Reason: PAIN/FEVER > 101 Piperacillin Sod/Tazobactam (Sod 3.375 gm/ Dextrose) 50 mls @ 100 mls/hr IV Q6 [facility] Last Infusion: 04/28/16 05:48 Dose: Infused Vancomycin HCl 1,000 mg/ (Sodium Chloride) 250 mls @ 250 mls/hr IV DAILY [facility] Last Admin: 04/28/16 09:47 Dose: 250 mls/hr Iron Carb/Multivit/Olar/Folic Acid (Multivitamin W/Minerals) 1 tab PO DAILY [facility] Last Admin: 04/28/16 09:46 Dose: 1 tab Lactulose (Cephulac) 20 gm PO BIDP PRN PRN Reason: Constipation Lorazepam (Ativan) 0.5 mg PO Q4HP PRN PRN Reason: ANXIETY/SEDATION Lorazepam (Ativan) 2 mg IV Q1HP PRN; Protocol PRN Reason: ANXIETY/SEDATION Metolazone (Zaroxolyn) 5 mg PO DAILY@0830 [facility] Last Admin: 04/28/16 09:43 Dose: 5 mg Nicotine (Nicoderm) 7 mg TOPICAL DAILY@1000 [facility] Last Admin: 04/28/16 09:56 Dose: Not Given Nitroglycerin (Nitrostat) 0.4 mg SL Q5M PRN PRN Reason: Chest Pain Ondansetron HCl (Zofran) 4 mg IV Q4-6HP PRN PRN Reason: Nausea And Vomiting Oxycodone/Acetaminophen (Percocet 10-325mg) 1 tab PO Q4HP PRN PRN Reason: Pain Last Admin: 04/28/16 07:17 Dose: 1 tab Pantoprazole Sodium (Protonix) 40 mg PO QAMAC [facility] Last Admin: 04/28/16 07:17 Dose: 40 mg Fluticasone/Vilanterol [Breo Ellipta] 200-25 Mcg Inhaler 1 dose INH DAILY [facility] Last Admin: 04/28/16 09:48 Dose: 1 dose Linaclotide [Linzess (] 290 Mcg Cap) 1 dose PO ACB [facility] Last Admin: 04/28/16 09:47 Dose: 1 dose Lubiprostone [ (Amitiza] 24 Mcg Cap) 1 dose PO BID [facility] Last Admin: 04/28/16 09:46 Dose: 1 dose Potassium Chloride (Kdur) 20 meq PO BIDCC [facility] Last Admin: 04/28/16 09:44 Dose: 20 meq Prednisone (Prednisone) 40 mg PO QAC [facility] Last Admin: 04/28/16 09:46 Dose: 40 mg Senna/Docusate Sodium (Senna Plus Tablet) 1 tab PO HS [facility] Last Admin: 04/27/16 20:24 Dose: 1 tab Sodium Chloride (Saline Flush) 10 ml IV Q8 [facility] Last Admin: 04/28/16 05:19 Dose: 10 ml Spironolactone (Aldactone) 25 mg PO DAILY [facility] Last Admin: 04/28/16 09:47 Dose: 25 mg Torsemide (Demadex) 20 mg PO DAILY [facility] Last Admin: 04/28/16 09:43 Dose: 20 mg Medical - DS: Hosp Hospital course: Ms. Howard is a 66 year old female April 25, 2016:this patient is a 66-year-old female with known advanced COPD and baseline CO2 in the 70s. She presented to the emergency room yesterday with increasing shortness of breath and productive cough.ER workup showed left lower lobe infiltrate, and elevated CO2 of 82, with increased work of breathing.he patient was admitted and started on IV steroids, bronchodilators, BiPAP to help support her breathing, IV antibiotics.she was initially started on Zosyn, vancomycin, and Levaquin but the Levaquin was canceled when it was discovered she was allergic to this. the patient became somewhat agitated last night, and tried to pull out her lines etc. Because nursing staff was concerned about her past history of alcohol use, she was started on the CIWA protocol and was given IV Ativan. This did help her sleep overnight, but she is still quite groggy this morning. She seems to be tolerating the BiPAP. She does report that she continues to have chronic diffuse pain. She otherwise seems to deny chest pain, nausea or vomiting. She thinks her breathing is a little bit better. she was weaned from the BiPAP and 35% FiO2, over 2a nasal cannula at 1.5 L. Follow-up ABG on those settingsshowed pH of 7.43, CO2 of 76, O2 of 62, 92% saturated April 26, 2016: -She patient was again weaned off her BiPAP during the night and is now maintaining an O2 saturation of around 90% on 2 L nasal cannula. She is more awake and alert today but still has intermittent episodes of somnolence. She cannot quite recall where she was this morning. She denies pain at this time, but admits that she was taking pain medication every 4-6 hours at home, but cannot really articulate why at this time. Her has indicated to the nursing staff that he really cannot keep track of when she takes her medicines and when she does not. She has declined home health assistance in the past. -she continues to exhibit some ectopy on her monitor, but otherwise has clinically been fairly stable. he denies significant pain currently. She denies chest pain, and reports her breathing is better. She denies abdominal symptoms. April 27, 2016: today, the patient that she is feeling quite a bit better. She is no longer requiring BiPAP, and was able to walk with physical therapy today although her O2 saturations drop some with ambulation. HER o2 SATURATIONS ARE QUITE LABILE, AND SOMETIMES SHE IS AT 95% ON ROOM AIR, AND AT OTHER TIMES DROPS DOWN INTO THE LOW 80S. she says she only intermittently feels short of breath now and does feel that her dyspnea with exertion has decreased. Her confusion is also quite a bit improved, as is her cough. Nurses note she is having less ectopy on her heart monitor now as well. She otherwise denies fever or chills, chest pain or palpitations, abdominal pain , nausea or vomiting diarrhea or dysuria. She admits that sometimes she gets confused about her medications at home, as she does not always have a pillbox set up, and then can forget whether or not she took her medications. In the past she has always set up her own pillbox. It sounds like her really does not help out with this. I believe he went over to her pharmacy yesterday, to see about perhaps getting a bubble pack. April 28, 2016: Today, the patient is feeling really well. She has been up walking in the halls, and is feeling quite alert.she is no longer requiring BiPAP. For the most part, she is maintaining her O2 saturations with just a half liter of oxygen at rest, and then does require 2-3 L with exertion, to prevent desaturation. The nurse and I both went over this with her in detail, and encouraged her to check her O2 saturations numerous times during the day, with a goal of titrating her O2 saturation to 90%. -she seems to do much better mental capacity-pan, when she takes less Percocet and no lorazepam. weaning her oxygen down also improves her hypercarbia as well. -she also notes that she really has not required much in the patent way of pain medication here, even though she seems to need Percocet and gabapentin and sometimes lorazepam every 4-6 hours at home. She notes that she if she stays busy she seems to need less, so we talked about trying to stay active She is also on prednisone here, and that may be helping to improve some of her chronic pain as well. Otherwise, she denies fever or chills, chest pain Shortness of breath is much improved.she denies current GI or issues. She has not been on either amitiza or linZESS during this hospitalization, and seems to be having regular bowel movements, again likely related to not being on as much Percocet. past medical history is notable for COPD, chronic pain with possible medication overuse, hyperlipidemia, GERD, hypertension, neuropathy, anxiety, IBS allergies include doxycycline, ciprofloxacin, Levaquin, morphinenext Social history the patient smokes E cigarettes. She denies alcohol use, although staff believe that she has been using alcohol recently. Assessment and plan: 1. Pulmonary. - this patient presents with hypercapnic respiratory failure, consistent with COPD exacerbation with superimposed pneumonia. she has done well on BiPAP and was weaned back to oxygen via nasal cannula .so far she appears to be tolerating this. -we will change her antibiotics over to oral Augmentin today, as she seems markedly improved. We will try harder to maintain O2 saturation of 88-90%, to try to keep her PCO2 at baseline. Serum bicarbonate level has been rising , likely due to excess oxygen and CO2 retention, with compensatory metabolic alkalosis.. -Tobacco abuse. NicoDerm patch was also started . I discussed her E cigarettes again with her today. We discussed that those may not be safe either, and that there may be a risk of sparkle or fire with them, and she should certainly not use near her oxygen.. #2. Infectious disease. Blood and sputum cultures have been ordered.chest x-ray consistent with left lower lobe pneumonia. We will need to clarify if the patient is up-to-date on flu and pneumonia vaccines. #3. . the patient was uncomfortable , and was found to have an elevated postvoid residual, so Lackey catheter was placed. Lackey catheter was discontinued, and she seems to voidadequately. #4. Chronic pain. this patient takes Percocet at home for chronic pain, and there is concern that she overuses this. he patient does have an implanted pain pump. There is still concern that she is not adequately manage her pain medications at home. she is much more alert today, and we discussed that she is not requiring as much Percocet here, so she may want to wean that down at home. She admits that if she stays busy she doesn't need as much. -We'll also talked with she and her about having the pharmacy bubble pack her medications, so she doesn't accidentally overuse them during the day. #5. CODE STATUS: Full code.the patient was unable to decide about ventilator management when she arrived here. #6. DVT prophylaxis:subcutaneous heparin. #7. History of coronary disease. Continue aspirin, statin, Plavix. #8. Disposition: She will return home todayK we have recommended a home health referral for evaluation, to be sure that they stay on top of monitoring her oxygen levels at home and that she is taking her medications appropriately. 39. Elevated LFTs. AST and ALTwere quite elevated n admission. These have improved every day since.she may have had either shock liver or liver congestion due to CHF. At any rate, this does seem to be improving. - Time Spent with Patient Total time spent providing and/or coordinating discharge services: Medical - DS: Exam - Constitutional Vitals: Vital Signs Temp Pulse Pulse Resp BP Pulse Ox 04/28/16 07:49 81 16 04/28/16 07:46 83 94 04/28/16 07:28 89 20 92 04/28/16 06:57 98.5 F 89 20 148/91 92 04/28/16 03:45 98.4 F 73 20 157/92 94 04/28/16 03:30 73 20 04/28/16 00:00 97.7 F 77 18 153/92 93 04/27/16 22:43 97 H 18 04/27/16 20:44 91 04/27/16 20:00 97.8 F 98 H 18 143/77 90 04/27/16 19:40 95 H 18 04/27/16 17:26 99 H 20 123/66 88 L 04/27/16 16:00 98.2 F 107 H 20 133/68 88 L 04/27/16 15:00 99 H 18 04/27/16 14:59 105 H 18 95 04/27/16 14:00 96 Intake and Output 04/27/16 04/28/16 04/28/16 21:59 05:59 13:59 Intake Total 240 / 240 650 / 650 Output Total 2049 / 2049 850 / 850 Balance -1810 / -1810 -200 / -200 Intake: IV 100 / 100 Dextrose 5% in Water 50 100 / 100 ml @ 100 mls/hr IV Q6 [facility]I with Zosyn 3.375 gm Rx#: [id number] Oral 240 / 240 550 / 550 Output: Urine Catheter Amount 1800 / 1800 Void Amount 250 / 250 450 / 450 Urine/Stool Mix 400 / 400 Other: Meal Dinner Percent of Meal Consumed 100% Feeding Ability Independent # Bowel Movements 1 Weight 163 lb 6.4 oz Additional comments: the patient is awake and alert, and talkative. She is smiling. Neck is supple without obvious JVD. Cardiac exam shows regular rate and rhythm. Lungs:Fairly clear to auscultation today, without significant wheezing. Abdomen is soft and nontender. Extremities show no significant edema. Neurologic: The patient is awake and alert, and has been ambulating without problems. Medical - DS: Data Labs on day of discharge: Labs from last 24 hours 04/28/16 04/28/16 04:15 04:15 WBC 8.2 RBC 3.85 L Hgb 11.7 L Hct 36.3 MCV 94.4 MCH 30.4 MCHC 32.2 RDW 14.9 H Plt Count 300 MPV 7.8 Total Counted 100 Seg Neutrophils % 66 Band Neutrophils % Not Reportable Lymphocytes % 15 Monocytes % (Manual) 16 H WBC Morphology Normal Reactive Lymphocytes 3 H Platelet Estimate Normal RBC Morphology Normal Sodium 137 Potassium 3.7 Chloride 85 L Carbon Dioxide 41 H* Anion Gap 11.0 BUN 15 Creatinine 0.8 GFR Calculation 76 Glucose 96 Uric Acid 3.8 Calcium 9.8 Phosphorus 3.4 Magnesium 1.5 L Total Bilirubin 0.5 Direct Bilirubin < 0.2 GGT 12 AST 29 ALT 194 H Alkaline Phosphatase 58 Lactate Dehydrogenase 168 Total Protein 6.0 Albumin 3.8 Globulin 2.2 Albumin/Globulin Ratio 1.7 Triglycerides 91 aBG from April 27: PH is 7.48, PCO2 72, PO2 50, [id number] O2 saturation 91% , on 0.5 L oxygen via nasal cannula. hepatitis screen is negative for hepatitis A, B, C. MRSA screen is negative. blood cultures are negative so far. April 24, 2016, chest x-ray: Shows mild interstitial infiltrate in the left lower lobe, infiltrate versus atelectasis.here is also a thin BM of discoid atelectasis noted above the right diaphragm. 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 Medical - DS: A/P - Patient/Caregiver Discharge Instructions Activity: increase activity as tolerated Diet: Cardiac Additional Instructions: #1. - Monitor oxygen levels several times a day. Your goal is to keep her oxygen saturations right around 90%. A reasonable range is 88-92%. He did not want your oxygen much higher than that, as it causes her carbon dioxide levels to rise. -here at the hospital, you have been doing well on a half liter of oxygen at rest, and 2-3 L with exertion. #2. You have been doing quite well with pain control here at the hospital, without using as much Percocet. I would strongly encourage that he try to wean this down to no more than 3 or 4 tablets per day.staying busy with other activities seems to help with her pain control. #3. Chronic constipation, likely aggravated by her Percocet use. This also has seemed to improve in the hospital with less Percocet, so you may be able to cut down or discontinue your constipation medications. #4. To finish treatment for your pneumonia, we have put you suly 6 day course of oral antibiotics. He will also complete a prednisone taper over the next 6 days. #5. It appears that you have had problems with keeping all of her medications straight at home, especially when the medications or your carbon dioxide levels making a little confused. We have suggested that you have the pharmacy put your regular medications in bubble packs, say don't accidentally take them twice. We would also like to refer home health nurses to come out to your home , and review medications and oxygen levels with you, and give any advice if needed. - Follow up Plan Follow up with: Dino Jenkins MD [Primary Care Provider] - 05/15/16 7:30 am Disposition: Home, Self-Care Prognosis: Fair Rehab Potential: Fair I certify that the patient requires SNF services: No Overall status at discharge: patient is not back to baseline Medical - DS: Qual - VTE Deep Vein Thrombosis/Pulmonary Embolism Present on Admission: No
== END 2016-04-28 14:40 | disposition home or self-care (01) | DRG 190 ==
LOC: ED 12:33 → ICU 16:30 → SUATTDRO 16:42
PROVIDERS: ADMIT Internal Medicine; ATTEND Internal Medicine

== ENCOUNTER 2016-05-09 11:05 | Inpatient (IN) ==
[2016-05-09] MEDS ORDERED: IPRATROPIUM/ALBUTEROL 3 ML AMPUL.NEB NEB ONE ×2 (11:10→11:22)
[2016-05-09] MEDS ORDERED: 0.9 % SODIUM CHLORIDE 1,000 ML IV ONE (12:05)
[2016-05-09] MEDS ORDERED: methylPREDNISolone SOD SUCC 125 MG/2 ML VIAL IV ONE (12:05)
[2016-05-09] MEDS ORDERED: TERBUTALINE 1 MG/ML VIAL SQ ONE (12:05)
[2016-05-09 12:22] LABS: Basophils # (Auto) 0 K/mcL (0.0-0.3); Basophils % (Auto) 0.2 % (0.0-2.0); Eosinophils # (Auto) 0 K/mcL (0.0-0.7); Eosinophils % (Auto) 0.3 % (0.0-7.0); Granulocytes % (Auto) 85.4 % (38.0-78.0); Lymphocytes # (Auto) 1.2 K/mcL (1.5-4.8); Lymphocytes % (Auto) 6.7 % (15.5-49.0); Mean Cell Volume 93.3 fL (80.0-100.0); Mean Corpuscular HGB Conc 31.8 g/dL (31.0-36.0); Mean Corpuscular Hemoglobin 29.6 pg (26.0-34.0); Monocytes # (Auto) 1.3 K/mcL (0.1-0.9); Monocytes % (Auto) 7.4 % (1.0-9.0); Platelet Count 381 K/mcL (140-440); RBC 3.84 M/mcL (4.00-5.20); Red Cell Distribution Width 14.7 % (11.5-14.5)
--- NOTE | 2016-05-09 12:41 | XRay Report ---
CLINICAL INFORMATION: Dyspnea COMPARISON: Plain films from 04/24/2016, 06/15/[address] from 05/03/2016 FINDINGS: The heart is mildly enlarged, but unchanged. Mediastinum is unremarkable. Pulmonary vessels show mild upper lobe congestion compared to the 06/15/2013 baseline study. There is also minimal interstitial edema. No infiltrates and moderate underlying centrilobular emphysema changes - known from chest CT again noted. No definite effusions IMPRESSION: Mild CHF Mild centrilobular emphysema changes Interpreted and Authenticated by: Zak Clarke 05/09/16
[2016-05-09 12:45] LABS: ALT/SGPT 25 U/l (0-40); Albumin 4.4 gm/dL (3.2-5.2); Albumin/Globulin Ratio 1.8 (1.0-2.3); Alkaline Phosphatase 82 U/L (39-117); Blood Urea Nitrogen 21 mg/dl (8-23)
[2016-05-09] MEDS ORDERED: FUROSEMIDE 20 MG/2 ML VIAL IV ONE (13:28)
--- NOTE | 2016-05-09 15:44 | Emergency Department Note ---
SOB HPI - General Chief Complaint: Shortness of Breath/Dyspnea Stated Complaint: sob Time Seen by Provider: 05/09/16 12:04 Source: patient Mode of arrival: ambulatory Limitations: no limitations - History of Present Illness 66-year-old female with known severe end-stage COPD oxygen dependent comes in short of breath with oxygen saturation in the 40s. She's been sick for the last few days with a fever and was actually seen at discharge earlier this morning. At that time was felt she was at her baseline terms of oxygen usage vitals and CO2 retention. However she did have an elevation in troponin which was felt to be just a leak. - Related Data Home Medications Medication Instructions Recorded Confirmed Aspirin [Lo-Dose Aspirin EC] 81 mg PO ONCE 11/10/15 05/09/16 Ipratropium/Albuterol Sulfate 1 puff INH QIDP 11/11/15 05/09/16 [Combivent] Lactulose [Enulose] 30 gm PO BID PRN 11/11/15 05/09/16 Nitroglycerin [Nitrostat] 0.4 mg SL Q5M PRN 11/11/15 05/09/16 cholecalciferol (vitamin D3) 1,000 1,000 unit PO ONCE 02/11/16 05/09/16 unit capsule clopidogrel 75 mg tablet 75 mg PO QDAY 90 Days 04/13/16 05/09/16 Oxygen 1.5 l INHALATION .continous 05/02/16 05/09/16 ferrous sulfate 325 mg (65 mg 325 mg PO QDAY 05/08/16 05/09/16 iron) tablet DULoxetine [Cymbalta] 60 mg PO DAILY 05/09/16 05/09/16 Ondansetron [Zofran] 4 mg SL Q4HP PRN 05/09/16 05/09/16 Previous Rx's Medication Instructions Recorded atorvastatin 10 mg tablet 10 mg PO QDAY #60 tab 01/20/16 potassium chloride ER 10 mEq 20 meq PO BID #120 tab 01/20/16 tablet,extended release torsemide 20 mg tablet 20 mg PO DAILY #30 tab 02/01/16 gabapentin 300 mg capsule 300 mg PO TID #90 cap 02/03/16 spironolactone 25 mg tablet 25 mg PO DAILY #30 tab 03/02/16 gabapentin 100 mg capsule 100 mg PO TID #90 cap 03/13/16 linaclotide 290 mcg capsule 290 mcg PO ACB #30 cap 03/20/16 Acetaminophen [Tylenol] 650 mg PO Q4-6HP PRN #0 tab 04/28/16 Docusate Sodium [Colace] 100 mg PO BID cap 04/28/16 Multivit,Ther Iron,Ca,FA & Min 1 tab PO DAILY tab 04/28/16 [Multivitamin W/Minerals] Sennosides/Docusate Sodium [Senna 1 tab PO HS tab 04/28/16 Plus Tablet] oxyCODONE/APAP [Percocet 10-325Mg] 1 tab PO Q6H PRN #10 tab 04/28/16 ipratropium-albuterol 0.5 mg-3 3 ml INHALATION QID #3 ml 05/01/16 mg(2.5 mg base)/3 mL nebulization soln metolazone 5 mg tablet 5 mg PO QDAY #90 tab 05/01/16 fluticasone 200 mcg-vilanterol 25 1 inh INHALATION QDAY #30 each 05/02/16 mcg/dose powder for inhalation lorazepam 0.5 mg tablet 0.5 mg PO QDAY PRN #14 tab 05/02/16 lubiprostone 24 mcg capsule 24 mcg PO BID #60 cap 05/03/16 cefdinir 300 mg capsule 300 mg PO Q12H 10 Days 05/08/16 Allergies Allergy/AdvReac Type Severity Reaction Status Date / Time doxycycline [DOXYCYCLINE] AdvReac Intermediate GI Upset Verified 05/08/16 13:56 levofloxacin AdvReac Intermediate Itching Verified 05/08/16 13:56 morphine AdvReac Mild Nausea/Vomi Verified 05/08/16 13:56 ting Review of Systems All systems ED: reviewed and negative except as stated. Past Medical History - Past Medical History Attestation: Yes: The following information was validated with the patient. 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 Conjunctiva clear sclerae anicteric. Some nasal congestion without discharge. Oropharynx is dry. Posterior pharynx postnasal drip. Neck is supple without lymphadenopathy. Heart is regular rate and rhythm on auscultation- difficulty or if there is a murmur secondary to her lung sounds. Lungs have wheezes and rales in all lung chaves and she is requiring nasal cannula oxygen. Significant shortness of breath. Abdomen is soft nontender nondistended. No pedal edema. +2 radial pulse. Alert and oriented and able to answer questions appropriately - General Limitations: no limitations Course Vital Signs Temperature 98.7 F 05/09/16 11:07 Pulse Rate 103 H 05/09/16 11:07 Respiratory Rate 38 H 05/09/16 11:07 Blood Pressure 140/70 05/09/16 11:07 Pulse Oximetry (%) 40 L 05/09/16 11:07 Temperature 98.4 F 05/10/16 04:00 Pulse Rate 89 05/10/16 07:28 Respiratory Rate 12 05/10/16 07:28 Blood Pressure 138/73 05/10/16 07:00 Pulse Oximetry (%) 98 05/10/16 07:28 Shortness of Breath/Dyspnea - Lab Data Lab results reviewed: Yes I reviewed the patient's lab results. Result diagrams: 05/10/16 03:55 05/09/16 12:08 Lab Results 05/09/16 05/09/16 05/09/16 Range/Units 12:08 12:08 12:08 WBC 17.8 H (4.5-11.0) K/mcL RBC 3.84 L (4.00-5.20) M/mcL Hgb 11.4 L (12.0-15.0) g/dL Hct 35.8 L (36.0-48.0) % MCV 93.3 (80.0-100.0) fL MCH 29.6 (26.0-34.0) pg MCHC 31.8 (31.0-36.0) g/dL RDW 14.7 H (11.5-14.5) % Plt Count 381 (140-440) K/mcL MPV 7.4 (7.4-10.4) fL Gran % 85.4 H (38.0-78.0) % Lymph % (Auto) 6.7 L (15.5-49.0) % [place] % (Auto) 7.4 (1.0-9.0) % Eos % (Auto) 0.3 (0.0-7.0) % Baso % (Auto) 0.2 (0.0-2.0) % Gran # 15.2 H (1.8-8.0) K/mcL Lymph # 1.2 L (1.5-4.8) K/mcL [place] # 1.3 H (0.1-0.9) K/mcL Eos # 0 (0.0-0.7) K/mcL Baso # 0 (0.0-0.3) K/mcL Sodium 133 (133-145) mmol/L Potassium 3.9 (3.3-5.1) mmol/L Chloride 81 L (96-108) mmol/L Carbon Dioxide 42 H* (22-30) mmol/L Anion Gap 10.0 (8-16) BUN 21 (8-23) mg/dl Creatinine 1.0 (0.6-1.1) mg/dl GFR Calculation 58 Glucose 146 H (70-105) mg/dL Hemoglobin A1c (4.0-6.0) % HGB Estim Average Glucose mg/dL Calcium 9.0 (8.6-10.4) mg/dl Total Bilirubin 0.4 (0.0-1.0) mg/dL AST 19 (0-37) U/l ALT 25 (0-40) U/l Alkaline Phosphatase 82 (39-117) U/L Troponin T 0.05 H* (0-0.03) ng/ml Total Protein 6.9 (5.9-8.4) gm/dL Albumin 4.4 (3.2-5.2) gm/dL Globulin 2.5 (2.2-3.7) gm/dL Albumin/Globulin Ratio 1.8 (1.0-2.3) 05/09/16 Range/Units 12:08 WBC (4.5-11.0) K/mcL RBC (4.00-5.20) M/mcL Hgb (12.0-15.0) g/dL Hct (36.0-48.0) % MCV (80.0-100.0) fL MCH (26.0-34.0) pg MCHC (31.0-36.0) g/dL RDW (11.5-14.5) % Plt Count (140-440) K/mcL MPV (7.4-10.4) fL Gran % (38.0-78.0) % Lymph % (Auto) (15.5-49.0) % [place] % (Auto) (1.0-9.0) % Eos % (Auto) (0.0-7.0) % Baso % (Auto) (0.0-2.0) % Gran # (1.8-8.0) K/mcL Lymph # (1.5-4.8) K/mcL [place] # (0.1-0.9) K/mcL Eos # (0.0-0.7) K/mcL Baso # (0.0-0.3) K/mcL Sodium (133-145) mmol/L Potassium (3.3-5.1) mmol/L Chloride (96-108) mmol/L Carbon Dioxide (22-30) mmol/L Anion Gap (8-16) BUN (8-23) mg/dl Creatinine (0.6-1.1) mg/dl GFR Calculation Glucose (70-105) mg/dL Hemoglobin A1c 5.5 (4.0-6.0) % HGB Estim Average Glucose 111 mg/dL Calcium (8.6-10.4) mg/dl Total Bilirubin (0.0-1.0) mg/dL AST (0-37) U/l ALT (0-40) U/l Alkaline Phosphatase (39-117) U/L Troponin T (0-0.03) ng/ml Total Protein (5.9-8.4) gm/dL Albumin (3.2-5.2) gm/dL Globulin (2.2-3.7) gm/dL Albumin/Globulin Ratio (1.0-2.3) first ABG shows a pH is 7.36 PCO2 of 96 and a PO2 111 we put her on EPAP and this improved to 7.44 PCO2 of 80 and an oxygen of 80 - Radiology Data Radiology results reviewed: Yes I reviewed the patient's radiology results. Chest x-ray is read as mild CHF but no infiltrate, chronic COPD changes - EKG Data EKG attestation: Yes I reviewed and interpreted this EKG. EKG results narrative: I reviewed the EKG from earlier in the morning- negative for ischemic changes. Disposition Clinical Impression: COPD (chronic obstructive pulmonary disease) with chronic bronchitis, Cor pulmonale, acute Respiratory failure with hypoxia and hypercapnia Qualifiers: Chronicity: acute on chronic Qualified Code(s): J96.21 - Acute and chronic respiratory failure with hypoxia Summary: She was started on BiPAP for elevated PCO2-her baseline is in the 80s but it is 96 today. She was tolerating that well but is clearly having a COPD exacerbation She reports that she had initially had some chest pain 2 days ago but this is resolved- however she remains with a troponin elevation. The troponin still look like they're trending down from a [place] of 0.09 yesterday to .05 today. EKGs are without ischemic changes Initially I discussed this with Dr. Peña the spray dry operator at [facility] who felt this was a primary pulmonary problem and refused admission or consultation. I then discussed the case with Dr. Mercado her primary spray dry operator who told me that she has severe pulmonary hypertension and cor pulmonale, right heart strain being the cause of her elevated troponin. Further he stated that she had had a recent heart catheter that was clear. I then discussed the case with Dr. Hopkins the hospitalist who agreed to accept the patient for cor pulmonale and COPD exacerbation Disposition: [facility] Hospital Condition: Critical
--- NOTE | 2016-05-09 16:40 | Internal Med History&Physical ---
Medical - H&P: HPI Patient information: Note initiated : 05/09/16 at 4:32 pm Service Date, if different from initiated Date: [] Patient: Loraine Howard 66 y/o F admitted on for Shortness of breath. Chief Complaint: [] History of present illness: Ms. Howard is a 66 year old female who presents to the ER today because she was unable to breathe, she was severely hypoxic and cynotic on presentation. The patient does not note any other significant finding besides that she was short of breath. The patient was here last night and apparently seemed ok, she was here for elevated troponin, which was trending down hence she was sent back home, but today she notes that she has not been feeling well for the last few days. She also was seen by her PCP yesterday who placed her on cefdinir. The patient was recently discharged from the facility with copd exacerbation and acute hypoxic, hyper capenic respiratory failure. In the ER the patient was placed on oxygen and her sats improved, her ABG showed Ph 7.36/96/ 111, she as placed on bipap on AVAPS setting and her repeat abg is 7.44/80/80. The patient was noted to have some wheezing, and elevated wbc on labs, she was given steroids and admitted to the hospital for further management. The patient yesterday presented ot the ER for elevated troponin, she still has some troponin leak, but its trending down, given her elevated troponin, her case was discussed with Dr Peña by the ER physician, who refused to accept the patient noting this to be likely respiratory origin. The ER also contacted her primary air traffic control specialist Dr Mercado who also noted that the patient has had a negative cardiac cath recently and therefore her troponin leak is likely from righ ventricular strain from heart failure. The patient has h/o chr copd, it seems that she is not very compliant wit hthe use of oxygen, on reviewing her condition with her and medications she deferred all the answers to her and granddaughter. During my interview she seemed back to her baseline, and answered all questions , but did not know much about her medications. The patient noted that she does not want any aggresive interventions done. She was ok with bipap, Will place her DNR/ DNI for now, this will have to be confirmed with her . In the ER the X ray was reported as mild chf, mild centrilobular emphysema changes. - Constitutional Constitutional: Present: lethargy, weakness - EENT Eyes: Absent: blurry vision, change in vision Nose, mouth and throat: Absent: abnormal hearing - Cardiovascular Cardiovascular: Present: dyspnea, dyspnea on exertion, edema, pedal edema. Absent: chest pain, chest pain with activity, palpatations, syncope - Respiratory Respiratory: Present: cough, dyspnea, dyspnea on exertion - Gastrointestinal Gastrointestinal: Absent: abdominal pain, nausea, vomiting - Genitourinary Genitourinary: Absent: urinary frequency, urinary hesitancy, urinary urgency - Musculoskeletal Musculoskeletal: Present: back pain - Integumentary Integumentary: Absent: jaundice - Neurological Neurological: Absent: headache(s), syncope, vertigo - Psychiatric Psychiatric: Present: confusion - Endocrine Endocrine: Absent: polydipsia, polyphagia, polyuria Medical - H&P: PMH Medical history: Medical History COPD (chronic obstructive pulmonary disease) with chronic bronchitis (Acute) Cor pulmonale, acute (Acute) Respiratory failure with hypoxia and hypercapnia (Acute) CHF (congestive heart failure) (Acute) COPD exacerbation (Acute) Coronary artery disease with stable angina pectoris (Acute) Epistaxis (Acute) Hypercapnia (Acute) Left lower lobe pneumonia (Acute) Anxiety disorder (Chronic) Back pain (Chronic) CAD (coronary artery disease) (Chronic) Carotid stenosis (Chronic) Chronic constipation (Chronic) Chronic, continuous use of opioids (Chronic) DMII (diabetes mellitus, type 2) (Chronic) Depressive disorder (Chronic) Gastritis, acute (Chronic) Hyperlipidemia (Chronic) Hypokalemia (Chronic) Metabolic alkalosis (Chronic) Neuropathy (Chronic) Sleep apnea (Chronic) Tobacco abuse (Chronic) Vaginal vault prolapse, posthysterectomy (Chronic) Vertigo, benign positional (Chronic) Vitamin D deficiency (Chronic) Surgical history: Past Surgical History H/O cervical spine surgery (Resolved) H/O reduction mammoplasty (Resolved) H/O tubal ligation (Resolved) History of surgery (Resolved) S/P WAI-BSO (Resolved) S/P appendectomy (Resolved) S/P colonoscopy (Resolved 10/22/12) S/P dilation and curettage (Resolved) Uterine prolapse (Resolved) Family history: reviewed and not pertinent Pertinent family history: Father cardiac disease, . Social history: ex smoker, but now uses e cigs denies etoh, denies drug use. Medical - H&P: Meds Home Medications Medication Instructions Recorded Confirmed Type Aspirin [Lo-Dose Aspirin EC] 81 mg PO ONCE 11/10/15 05/09/16 History Ipratropium/Albuterol Sulfate 1 puff INH QIDP 11/11/15 05/09/16 History [Combivent] Lactulose [Enulose] 30 gm PO BID PRN 11/11/15 05/09/16 History Nitroglycerin [Nitrostat] 0.4 mg SL Q5M PRN 11/11/15 05/09/16 History cholecalciferol (vitamin D3) 1,000 1,000 unit PO ONCE 02/11/16 05/09/16 History unit capsule clopidogrel 75 mg tablet 75 mg PO QDAY 90 Days 04/13/16 05/09/16 History Oxygen 1.5 l INHALATION .continous 05/02/16 05/09/16 History ferrous sulfate 325 mg (65 mg 325 mg PO QDAY 05/08/16 05/09/16 History iron) tablet DULoxetine [Cymbalta] 60 mg PO DAILY 05/09/16 05/09/16 History Ondansetron [Zofran] 4 mg SL Q4HP PRN 05/09/16 05/09/16 History Allergies Allergy/AdvReac Type Severity Reaction Status Date / Time doxycycline [DOXYCYCLINE] AdvReac Intermediate GI Upset Verified 05/08/16 13:56 levofloxacin AdvReac Intermediate Itching Verified 05/08/16 13:56 morphine AdvReac Mild Nausea/Vomi Verified 05/08/16 13:56 ting Medical - H&P: Exam - Constitutional Vitals: Temp Pulse Resp BP Pulse Ox 98.7 F 93 H 21 121/65 96 05/09/16 11:17 05/09/16 13:01 05/09/16 13:01 05/09/16 13:01 05/09/16 13:01 General appearance: cooperative, no acute distress - Head Head exam: Present: atraumatic, normal inspection - Eye Eye exam: Present: PERRL. Absent: periorbital swelling, periorbital tenderness , scleral icterus - ENT ENT exam: Present: mucous membranes dry - Neck Neck exam: Present: normal inspection - Expanded Neck Exam Neck exam: Absent: tracheal deviation - Respiratory Respiratory exam: Present: prolonged expiratory phase, wheezes. Absent: accessory muscle use, respiratory distress, rhonchi, stridor - Cardiovascular Cardiovascular exam: Present: normal rate and rhythm, +S1, +S2 - GI/Abdominal GI/Abdominal exam: Present: normal bowel sounds, soft. Absent: organomegaly, rebound, rigid, tenderness - Rectal Rectal exam: Present: deferred - Extremities Exam Extremities exam: Present: pedal edema (+), Foot pink and warm. Absent: neurovascular intact - Back Exam Back exam: Present: normal inspection - Neurological Exam Neurological exam: Present: alert, CN II-XII intact, oriented X3. Absent: motor sensory deficit - Psychiatric Psychiatric exam: Absent: agitated, anxious - Skin Skin exam: Present: normal color, warm. Absent: rash Medical - H&P: Reslt - Labs CBC & Chem 7: 05/09/16 12:08 05/09/16 12:08 Labs: Short CBC 05/09/16 Range/Units 12:08 WBC 17.8 H (4.5-11.0) K/mcL Hgb 11.4 L (12.0-15.0) g/dL Hct 35.8 L (36.0-48.0) % Plt Count 381 (140-440) K/mcL BMP 05/09/16 12:08 Sodium 133 Potassium 3.9 Chloride 81 L Carbon Dioxide 42 H* BUN 21 Creatinine 1.0 Glucose 146 H Calcium 9.0 Cardiac Enzymes 05/09/16 Range/Units 12:08 Troponin T 0.05 H* (0-0.03) ng/ml Liver Function 05/09/16 Range/Units 12:08 Total Bilirubin 0.4 (0.0-1.0) mg/dL AST 19 (0-37) U/l ALT 25 (0-40) U/l Alkaline Phosphatase 82 (39-117) U/L Albumin 4.4 (3.2-5.2) gm/dL - ABG Interpretation -: ABG interpreted by me Interpretation: respiratory acidosis - EKG Data EKG comments: 05/09/16 17:31 LAD, sinsus, lafb. Medical - H&P: A/P (1) Type 2 respiratory failure Current visit: Yes Status: Acute (2) COPD (chronic obstructive pulmonary disease) with chronic bronchitis Current visit: Yes Status: Acute (3) Cor pulmonale, acute Current visit: Yes Status: Acute (4) Respiratory failure with hypoxia and hypercapnia Current visit: Yes Status: Acute (5) COPD exacerbation Current visit: No Status: Acute (6) DMII (diabetes mellitus, type 2) Current visit: No Status: Chronic (7) Metabolic alkalosis Current visit: No Status: Chronic - Narrative A/P Narrative: The patient presents with acute hypoxic hypercapenic resp failure Etiology behind worsening of her condition is not clear, she was just found to be hypoxic and cynotic, with sob. Exam reveals tamia proloned exp, and mild wheezing, therefore will treat as copd exacerbation with steroids, ABX and duonebs She has mild troponin leak due to her copd/ right ventricular strain,ER discussed with her primary air traffic control specialist Dr Mercado and Dr Peña. The patient will get an echo to evaluate cardiac function and citlali right ventricular function. The patient ph on presentation was 7.36, she has bicarb of 42, even though her pco2 is high on the ABG, the normal ph with elevated bicarb suggest this is a chronic process. I reviewed her labs and abg done in the past, and it seems that the patient has been a chronic retainer. It appears that her baseline Co2 for compensated resp acidosis would be around 80-90. AT present she is on bipap and her repeat ABG appears ok, will see if we can wean her off and keep her on oxygen. It would be very important to keep her oxygen sat around 88-92, to avoid suppression of her respiratory drive. The patient may benefit The patient is on narcotic pain medications, on top of this she is also on low dose ativan, I am not sure at this time how much this is a factor exacerbating her co2 retention. It appears she has been educated repeatedly by her PCP and previous hospitalist regarding consideration for weaning and need to limit the drugs use. Will use IV lasix to diurese the patient, hold torsemide and metolzone for now, use acetazolamide to prevent severe metabolic alkalosis. Monitor renal function closely, hopefully this will help improving her volume, Echo will be useful to evalaute right ventricular strain too. This patient may benefit by a right heart cath to get a accurate estimation of her pressures and the severity of pulmonary HTN given taht previous echo's have had poor windows. The patient may also benefit from cardio pulmonary rehab. Will try to see if the patient is interested in such a program. Etiology of the raised wbc is not very clear, X ray is neg, abdomen is soft, her wbc is trending down, and her pcp had her on cefdinier, will continue rocephin, c heck ua and urine culture. DVT prophylaxis heparin/ lovenox DIet low salt diet Prognosis - overall she has poor prognosis given chr type 2 resp failure and possiblity of Pulmonary hypertension
[2016-05-09] MEDS ORDERED: MAGNESIUM HYDROXIDE 30 ML ORAL.SUSP PO PRN (16:48)
[2016-05-09] MEDS ORDERED: LORazepam 0.5 MG TABLET PO PRN (16:48)
[2016-05-09] MEDS ORDERED: DEXTROSE 50% 50 ML VIAL IV PRN (16:48)
[2016-05-09] MEDS ORDERED: FLEETS ADULT ENEMA PR PRN (16:48)
[2016-05-09] MEDS ORDERED: ONDANSETRON 4 MG/2 ML VIAL IV PRN (16:48)
[2016-05-09] MEDS ORDERED: PROMETHAZINE 25 MG/ML VIAL IV PRN (16:48)
[2016-05-09] MEDS ORDERED: MAG HYDROX/AL HYDROX/SIMETH 30 ML ORAL.SUSP PO PRN (16:48)
[2016-05-09] MEDS ORDERED: NALOXONE HCL 0.4 MG/ML VIAL IV PRN (16:48)
[2016-05-09] MEDS ORDERED: ACETAMINOPHEN 325 MG TABLET PO PRN (16:48)
[2016-05-09] MEDS ORDERED: AZITHROMYCIN 250 MG TABLET PO ONE (16:48)
[2016-05-09] MEDS: cefTRIAXone 1 GM in DEXTROSE 5% IN WATER 50 ML IV SCH (17:46)
[2016-05-09] MEDS: INSULIN LISPRO 1 UNIT/0.01 ML UNIT SQ SCH ×2 (17:48→20:44)
[2016-05-09 17:49] LABS: Appearance,Urine CLEAR; Bacteria,Urine 0 /hpf (0); Bilirubin,Urine NEG (NEG); Color,Urine STRAW; Glucose,Urine (UA) NEGATIVE (NEG); Leukocyte Esterase,Urine NEG /uL (NEG); Mucus,Urine FEW /hpf (0); Nitrate,Urine NEG (NEG); Protein,Urine NEG (NEG); Specific Gravity,Urine 1.008 (1.000-1.035); Urine Blood NEG mg/dL (<0.03); Urine Hyaline Cast 1 /lpf (0-2); Urine RBC < 1 /hpf (0-1); Urine Squamous Epithelial Cell < 1 /hpf (0-4); Urine WBC < 1 /hpf (0-4); Urobilinogen,Urine NEG (NEG)
[2016-05-09 17:55] LABS: Amphetamine Screen,Urine NONE DETECTED (NONDETECTED); Benzodiazepines Screen,Urine NONE DETECTED (NONDETECTED); Cocaine Screen,Urine NONE DETECTED (NONDETECTED); Opiate Screen,Urine NONE DETECTED (NONDETECTED)
[2016-05-09] MEDS: 0.9 % SODIUM CHLORIDE 10 ML SYRINGE IV SCH ×2 (18:46→21:43)
[2016-05-09] MEDS ORDERED: AZITHROMYCIN 500 MG in DEXTROSE 5% IN WATER 250 ML IV ONE (18:54)
[2016-05-09] MEDS ORDERED: POTASSIUM CHLORIDE 20 MEQ in DEXTROSE 5% IN WATER 250 ML IV ONE (18:55)
[2016-05-09] MEDS: IPRATROPIUM/ALBUTEROL 3 ML AMPUL.NEB NEB SCH ×2 (19:43→23:08)
[2016-05-09 19:58] LABS: Hemoglobin A1C 5.5 % HGB (4.0-6.0)
[2016-05-09] MEDS: POTASSIUM CHLORIDE 20 MEQ TABLET PO SCH (20:07)
[2016-05-09] MEDS: Lubiprostone [Amitiza] 24 mcg Cap PO SCH (20:08)
[2016-05-09] MEDS: GABAPENTIN 100 MG CAPSULE PO SCH (20:08)
[2016-05-09] MEDS: DOCUSATE SODIUM 100 MG CAPSULE PO SCH (20:08)
[2016-05-09] MEDS: GABAPENTIN 300 MG CAPSULE PO SCH (20:08)
[2016-05-09] MEDS: ATORVASTATIN 20 MG TABLET PO SCH (20:08)
[2016-05-09] MEDS: FUROSEMIDE 40 MG/4 ML VIAL IV SCH (20:38)
[2016-05-09] MEDS: CHLORHEXIDINE GLUCONATE 1 ML ORAL.SOL SWABMOUTH SCH (20:40)
[2016-05-09] MEDS ORDERED: POTASSIUM CHLORIDE 20 MEQ/10 ML VIAL IV ONE (20:45)
[2016-05-10] MEDS: oxyCODONE/APAP 10/325MG TABLET PO PRN ×2 (00:58→16:30)
[2016-05-10] MEDS: IPRATROPIUM/ALBUTEROL 3 ML AMPUL.NEB NEB SCH ×6 (03:36→22:22)
[2016-05-10] MEDS: 0.9 % SODIUM CHLORIDE 10 ML SYRINGE IV SCH ×3 (04:50→21:36)
[2016-05-10 06:24] LABS: Basophils # (Auto) 0 K/mcL (0.0-0.3); Basophils % (Auto) 0.1 % (0.0-2.0); Eosinophils # (Auto) 0 K/mcL (0.0-0.7); Eosinophils % (Auto) 0.5 % (0.0-7.0); Granulocytes % (Auto) 83.1 % (38.0-78.0); Lymphocytes # (Auto) 0.6 K/mcL (1.5-4.8); Lymphocytes % (Auto) 7.2 % (15.5-49.0); Mean Cell Volume 92.8 fL (80.0-100.0); Mean Corpuscular HGB Conc 32.3 g/dL (31.0-36.0); Monocytes # (Auto) 0.8 K/mcL (0.1-0.9); Monocytes % (Auto) 9.1 % (1.0-9.0); Platelet Count 365 K/mcL (140-440); RBC 3.62 M/mcL (4.00-5.20); Red Cell Distribution Width 14.8 % (11.5-14.5)
--- NOTE | 2016-05-10 07:29 | Echocardiogram Report ---
ECHOCARDIOGRAM: 2-D and M-mode echocardiography with cardiac Doppler and color flow imaging were performed with a [employer] MX. INDICATION: Congestive heart failure/cor pulmonale/elevated troponin. The study was technically suboptimal due to absent parasternal windows. Overall size of the 4 cardiac chambers appeared normal. Specifically, presence of right heart enlargement was not appreciated. Ventricular septal motion appeared mildly dyssynergic as can be seen with RV pressure overload. LV systolic performance otherwise appeared vigorous. Estimated ejection fraction is 70 percent. Aortic root diameter appeared high normal. The aortic valve appeared trileaflet. Light leaflet calcification was present. Valve opening appeared adequate and there was no evidence for aortic stenosis by Doppler interrogration. No more than trivial aortic regurgitation was noted. The mitral and tricuspid valves appeared unremarkable. Doppler interrogration of LV inflow disclosed prolonged delay diastolic deceleration time and 'a' wave dominance indicating delayed LV relaxation. There was no evidence for mitral regurgitation. Pulmonary venous interrogation disclosed slight 's' wave dominance. The pulmonic valve was not visualized. Pulmonary artery acceleration time appeared normal. There was no evidence for pulmonic stenosis. Pulmonic regurgitation, probably mild (1+), was noted. There was no evidence for tricuspid regurgitation. No intracardiac shunting was appreciated. There was no evidence for pericardial effusion. The IVC was difficult to image, though appeared dilated and appeared to show less than normal respiratory variation. Calculated estimate of PA systolic pressure could not be calculated due to absent tricuspid regurgitation jet. Sinus rhythm, rate 96, was present. CONCLUSION:Technically suboptimal study due to absent apical windows. Ventricular septal dyssynergy as can be seen with RV pressure overload and overall vigorous LV systolic performance. Probable raised CVP. Since previous study, 07/03/2015, the presence of right heart enlargement is not appreciated. (See accompanying M-mode and Doppler reports for quantitation.) ECHOCARDIOGRAPHY M-MODE CALCULATIONS: HT: 63'' WT: 150 BSA: 1.71 m2 NORMALS AORTA: AORTIC ROOT 3.6 2.0-3.7 cm LEFT ATRIUM 3.5 1.9-4.0 cm MITRAL VALVE: EXCURSION 2.1 1.9-2.7 cm EPSS 0 <0.5 cm LT VENTRICLE: LVID (ED) 4.5 3.5-5.7 cm LVID (ES) 3.0 SEPTAL THICKNESS 1.0 0.6-1.1 cm SEPTAL EXCURSION 0.5 0.3-0.8 cm LVPW THICKNESS 1.1 0.6-1.1 cm LVPW EXCURSION 1.0 0.9-1.4 cm MINOR AXIS FS 3.3 25%-40% RT VENTRICLE: RVID (ED) 1.9 0.9-2.6 cm(up to 3cm if LLD) QUALITATIVE DOPPLER FLOW STUDIES MITRAL VALVE -- AORTIC VALVE AR, probably trivial TRICUSPID VALVE -- PULMONIC VALVE ID, probably mild (1+) QUANTITATIVE DOPPLER FLOW STUDIES SAMPLE SITES VELOCITIES PEAK PRESSURE VALVE AREA and/or VALVE WINDOW (PEAK,M/SEC) DROP (GRADIENT) PRESSURE HALF-TIME MV (Diastole) 0.6 0.8 -- -- MV (Systole) -- -- -- AO (Diastole) 3.3 -- 1300 msec AO (Systole) 1.3 -- -- TV (Systole) -- -- -- PV (Systole) 1.1 -- -- PV (Diastole) 1.8 LWG:den Job ID: [id number] Doc ID: [id number] Modesto Mercado MD
[2016-05-10 07:53] LABS: ALT/SGPT 20 U/l (0-40); Albumin 4.1 gm/dL (3.2-5.2); Albumin/Globulin Ratio 1.9 (1.0-2.3); Alkaline Phosphatase 67 U/L (39-117); Bilirubin,Direct < 0.2 mg/dL (0.0-0.3); Blood Urea Nitrogen 16 mg/dl (8-23); Gamma Glutamyl Transpeptidase 14 U/L (5-36); Magnesium 1.4 mg/dL (1.6-2.5); Phosphorous 2.4 mg/dL (2.7-4.5); Uric Acid 7.4 mg/dL (2.5-8.0)
[2016-05-10] MEDS ORDERED: MAGNESIUM SULFATE 2 GM/50 ML BAG IV ONE (08:00)
[2016-05-10] MEDS ORDERED: acetaZOLAMIDE 250 MG TABLET PO SCH ×2 (09:00→21:00)
[2016-05-10] MEDS: GABAPENTIN 300 MG CAPSULE PO SCH ×3 (09:27→21:00)
[2016-05-10] MEDS: ASPIRIN 81 MG TAB.CHEW PO SCH (09:27)
[2016-05-10] MEDS: GABAPENTIN 100 MG CAPSULE PO SCH ×3 (09:27→21:00)
[2016-05-10] MEDS: DOCUSATE SODIUM 100 MG CAPSULE PO SCH ×2 (09:27→21:00)
[2016-05-10] MEDS: SPIRONOLACTONE 25 MG TABLET PO SCH (09:27)
[2016-05-10] MEDS: AZITHROMYCIN 250 MG TABLET PO SCH (09:27)
[2016-05-10] MEDS: CLOPIDOGREL 75 MG TABLET PO SCH (09:27)
[2016-05-10] MEDS: POTASSIUM CHLORIDE 20 MEQ TABLET PO SCH ×2 (09:27→17:18)
[2016-05-10] MEDS: FUROSEMIDE 40 MG/4 ML VIAL IV SCH ×2 (09:27→21:01)
[2016-05-10] MEDS: cefTRIAXone 1 GM in DEXTROSE 5% IN WATER 50 ML IV SCH (09:28)
[2016-05-10] MEDS: INSULIN LISPRO 1 UNIT/0.01 ML UNIT SQ SCH ×4 (09:29→20:59)
[2016-05-10] MEDS: ENOXAPARIN 40 MG/0.4 ML SYRINGE SQ SCH (09:29)
[2016-05-10] MEDS: DULoxetine 30 MG CAPSULE PO SCH (09:34)
[2016-05-10] MEDS: Lubiprostone [Amitiza] 24 mcg Cap PO SCH ×2 (10:30→21:04)
[2016-05-10] MEDS: CHLORHEXIDINE GLUCONATE 1 ML ORAL.SOL SWABMOUTH SCH ×2 (11:21→20:59)
--- NOTE | 2016-05-10 13:35 | Internal Med Progress Note ---
Medical - PN: Subj Patient information: Note initiated : 05/10/16 at 1:31 pm Service Date, if different from initiated Date: [] Patient: Loraine Howard 66 y/o F admitted on 05/09/16 for Shortness of Breath/ COPD, Cor Pulmonale. Chief Complaint: [] Interval history: Patient seen examined, overnight events noted Pt was on bipap all night, this AM on my rounds she was back at her baseline mental status, The patient denies any acute complaints, I reviwed her prognosis with her and her . Educated that e cigs are not very good given her cardiopulmonary status. Educated her that she needs to be compliant with her oxygen, and try to maintain her oxgygen stats betwee 88-92 Her overall poor prognosis discussed with her and her , DNR / DNI reconfirmed. Pertinent ROS: Denies headache, dizziness Denies chest pain, palpitations Denies cough or shortness of breath Denies abdominal pain, nausea or vomiting. - Constitutional Vitals: Vital Signs Temp Pulse Resp BP Pulse Ox 98.3 F 96 H 19 102/66 92 05/10/16 12:00 05/10/16 13:00 05/10/16 13:00 05/10/16 13:00 05/10/16 13:00 Period Temp Pulse Resp BP Sys/Cano Pulse Ox Last 24 Hr 97.2 F-98.5 F 87-110 12-30 102-150/63-98 89-99 Intake and Output 05/09/16 05/10/16 05/10/16 21:59 05:59 13:59 Intake Total 50 / 1050 250 / 250 710 / 710 Output Total 1495 / 1495 1645 / 1645 1595 / 1595 Balance -1445 / -445 -1395 / -1395 -885 / -885 Weight 160 lb 14.4 oz Intake & Output: Intake & Output 05/09/16 05/10/16 05/10/16 21:59 05:59 13:59 Intake Total 50 / 1050 250 / 250 710 / 710 Output Total 1495 / 1495 1645 / 1645 1595 / 1595 Balance -1445 / -445 -1395 / -1395 -885 / -885 Weight 160 lb 14.4 oz Intake: IV 50 / 50 250 / 250 50 / 50 Dextrose 5% in Water 250 250 / 250 ml @ 250 mls/hr IV ONCE ONE with Zithromax 500 mg Rx#:[id number] Dextrose 5% in Water 50 50 / 50 50 / 50 ml @ 100 mls/hr IV Q24H [facility] with Rocephin 1 gm Rx #:[id number] Oral 660 / 660 Output: Urine Catheter Amount 1495 / 1495 1645 / 1645 1595 / 1595 Other: Meal Breakfast Percent of Meal Consumed 100% # Bowel Movements 0 Medical - PN: Obj Da - Labs CBC & Chem 7: 05/10/16 03:55 05/10/16 03:55 Labs: Abnormal Lab Results 05/10/16 05/10/16 03:55 03:55 RBC 3.62 L Hgb 10.9 L Hct 33.6 L RDW 14.8 H Gran % 83.1 H Lymph % (Auto) 7.2 L [place] % (Auto) 9.1 H Lymph # 0.6 L Sodium 132 L Chloride 76 L Carbon Dioxide 44 H* Glucose 135 H Phosphorus 2.4 L Magnesium 1.4 L Meds: Medications Acetaminophen (Tylenol) 650 mg PO Q4-6HP PRN PRN Reason: PAIN/FEVER > 101 Acetazolamide (Acetazolamide) 250 mg PO DAILY [facility] Last Admin: 05/10/16 09:27 Dose: 250 mg Al Hydrox/Mg Hydrox/Simethicone (Maalox) 30 ml PO Q4-6HP PRN PRN Reason: Dyspepsia Albuterol/Ipratropium (Duoneb) 3 ml NEB Q4HRT [facility] Last Admin: 05/10/16 11:08 Dose: 3 ml Aspirin (Aspirin) 81 mg PO DAILY [facility] Last Admin: 05/10/16 09:27 Dose: 81 mg Atorvastatin Calcium (Lipitor) 10 mg PO HS [facility] Last Admin: 05/09/16 20:08 Dose: Not Given Azithromycin (Zithromax) 250 mg PO DAILY [facility] Stop: 05/13/16 09:01 Last Admin: 05/10/16 09:27 Dose: 250 mg Chlorhexidine Gluconate (Peridex) 15 ml SWABMOUTH BID [facility] Last Admin: 05/10/16 11:21 Dose: 15 ml Clopidogrel Bisulfate (Plavix) 75 mg PO QDAY [facility] Last Admin: 05/10/16 09:27 Dose: 75 mg Dextrose (Dextrose 50%) 0 ml IV UD PRN PRN Reason: Hypoglycemia Diagnostic Test (Pha) (Accu-Chek) 1 each FS ACHS [facility] Last Admin: 05/10/16 11:40 Dose: 1 each Docusate Sodium (Colace) 100 mg PO BID [facility] Last Admin: 05/10/16 09:27 Dose: 100 mg Duloxetine HCl (Cymbalta) 60 mg PO DAILY [facility] Last Admin: 05/10/16 09:34 Dose: 60 mg Enoxaparin Sodium (Lovenox) 40 mg SQ DAILY [facility] Last Admin: 05/10/16 09:29 Dose: 40 mg Furosemide (Lasix) 40 mg IV Q12 [facility] Last Admin: 05/10/16 09:27 Dose: 40 mg Gabapentin (Neurontin) 100 mg PO TID [facility] Last Admin: 05/10/16 09:27 Dose: 100 mg Gabapentin (Neurontin) 300 mg PO TID [facility] Last Admin: 05/10/16 09:27 Dose: 300 mg Ceftriaxone Sodium 1 gm/ (Dextrose) 50 mls @ 100 mls/hr IV Q24H [facility] Stop: 05/16/16 16:59 Last Infusion: 05/10/16 12:56 Dose: Infused Insulin Human Lispro (Humalog) 0 unit SQ [facility] PRN Reason: Protocol Last Admin: 05/10/16 11:40 Dose: Not Given Lorazepam (Ativan) 0.5 mg PO QDAY PRN PRN Reason: ANXIETY/SEDATION Magnesium Hydroxide (Milk Of Magnesia) 30 ml PO DAILYP PRN PRN Reason: Constipation Naloxone HCl (Narcan) 0.1 mg IV Q2MIN PRN PRN Reason: Opiate Reversal Ondansetron HCl (Zofran) 4 mg IV Q4-6HP PRN PRN Reason: Nausea And Vomiting Oxycodone/Acetaminophen (Percocet 10-325mg) 1 tab PO Q6H PRN PRN Reason: Pain Last Admin: 05/10/16 00:58 Dose: 1 tab Lubiprostone [ (Amitiza] 24 Mcg Cap) 1 dose PO BID [facility] Last Admin: 05/10/16 10:30 Dose: Not Given [facility] Last Admin: 05/10/16 09:27 Dose: 20 meq Promethazine HCl (Phenergan) 12.5 mg IV Q4-6HP PRN PRN Reason: Nausea And Vomiting Sodium Biphosphate/Sodium Phosphate (Fleets Adult) 1 dose SD Q3-4DAYS PRN PRN Reason: Constipation Sodium Chloride (Saline Flush) 10 ml IV Q8 [facility] Last Admin: 05/10/16 04:50 Dose: 10 ml Spironolactone (Aldactone) 25 mg PO DAILY [facility] Last Admin: 05/10/16 09:27 Dose: 25 mg Medical - PN: A/P - Time Spent With Patient Total time spent is greater than 50% in coordination of care (as documented) at patient's floor/unit and/or counseling patient: (1) Type 2 respiratory failure Status: Acute Assessment and plan: Off bipap for now Her baseline co2 is 80 -90, based on her previous bicarb values continue to monitor the goal is to keep Ph in the near normal range, Current Visit: Yes (2) COPD (chronic obstructive pulmonary disease) with chronic bronchitis Status: Acute Assessment and plan: On IV steroids zithromax duonebs bipap prn continue same and monitor. Current Visit: Yes (3) Cor pulmonale, acute Status: Acute Assessment and plan: IV lasix bid Acetazolamide to prevent severe metabolic alkalosis, Increase dose to 250mg bid. acetazolamide, while being diuresed. Current Visit: Yes (4) COPD exacerbation Status: Acute Current Visit: No (5) DMII (diabetes mellitus, type 2) Status: Chronic Current Visit: No (6) Metabolic alkalosis Status: Chronic Current Visit: No - Narrative A/P Narrative: Overall poor prognosis Acute cor pulmonale, co2 with chr respiratory failure, non compliant patient is not a very good combination. The patient is on narcotic pain medications, ativan prn for anxiety, Pt notes that she takes her medications, but strangely her Urine drug screen is negative , Medical - PN: Qual - Stroke Symptom Onset Unknown: No - VTE Deep Vein Thrombosis/Pulmonary Embolism Present on Admission: No
[2016-05-10] MEDS: methylPREDNISolone SOD SUCC 40 MG/ML VIAL IV SCH ×2 (15:34→21:44)
[2016-05-10] MEDS: ATORVASTATIN 20 MG TABLET PO SCH (21:03)
[2016-05-11] MEDS: IPRATROPIUM/ALBUTEROL 3 ML AMPUL.NEB NEB SCH ×3 (03:19→11:11)
[2016-05-11 05:38] LABS: Basophils # (Auto) 0 K/mcL (0.0-0.3); Basophils % (Auto) 0 % (0.0-2.0); Eosinophils # (Auto) 0.1 K/mcL (0.0-0.7); Granulocytes % (Auto) 94.4 % (38.0-78.0); Lymphocytes # (Auto) 0.3 K/mcL (1.5-4.8); Lymphocytes % (Auto) 2.4 % (15.5-49.0); Mean Cell Volume 94.7 fL (80.0-100.0); Mean Corpuscular HGB Conc 31.3 g/dL (31.0-36.0); Mean Corpuscular Hemoglobin 29.6 pg (26.0-34.0); Monocytes # (Auto) 0.2 K/mcL (0.1-0.9); Monocytes % (Auto) 2.2 % (1.0-9.0); Platelet Count 397 K/mcL (140-440); RBC 4.26 M/mcL (4.00-5.20)
[2016-05-11 05:51] LABS: ALT/SGPT 19 U/l (0-40); Albumin 4.7 gm/dL (3.2-5.2); Albumin/Globulin Ratio 1.7 (1.0-2.3); Alkaline Phosphatase 78 U/L (39-117); Bilirubin,Direct < 0.2 mg/dL (0.0-0.3); Blood Urea Nitrogen 28 mg/dl (8-23); Gamma Glutamyl Transpeptidase 18 U/L (5-36); Magnesium 2.1 mg/dL (1.6-2.5); Phosphorous 3.9 mg/dL (2.7-4.5); Uric Acid 7.7 mg/dL (2.5-8.0)
[2016-05-11] MEDS: methylPREDNISolone SOD SUCC 40 MG/ML VIAL IV SCH (05:54)
[2016-05-11] MEDS: 0.9 % SODIUM CHLORIDE 10 ML SYRINGE IV SCH (05:55)
[2016-05-11] MEDS ORDERED: POTASSIUM CHLORIDE 20 MEQ PACKET PO ONE (07:23)
[2016-05-11] MEDS: POTASSIUM CHLORIDE 20 MEQ TABLET PO SCH (07:53)
[2016-05-11] MEDS: INSULIN LISPRO 1 UNIT/0.01 ML UNIT SQ SCH ×2 (08:02→11:59)
[2016-05-11] MEDS: DULoxetine 30 MG CAPSULE PO SCH (09:05)
[2016-05-11] MEDS: DOCUSATE SODIUM 100 MG CAPSULE PO SCH (09:05)
[2016-05-11] MEDS: ENOXAPARIN 40 MG/0.4 ML SYRINGE SQ SCH (09:05)
[2016-05-11] MEDS: SPIRONOLACTONE 25 MG TABLET PO SCH (09:05)
[2016-05-11] MEDS: cefTRIAXone 1 GM in DEXTROSE 5% IN WATER 50 ML IV SCH (09:05)
[2016-05-11] MEDS: ASPIRIN 81 MG TAB.CHEW PO SCH (09:05)
[2016-05-11] MEDS: FUROSEMIDE 40 MG/4 ML VIAL IV SCH (09:05)
[2016-05-11] MEDS: AZITHROMYCIN 250 MG TABLET PO SCH (09:06)
[2016-05-11] MEDS: CHLORHEXIDINE GLUCONATE 1 ML ORAL.SOL SWABMOUTH SCH (09:06)
[2016-05-11] MEDS: Lubiprostone [Amitiza] 24 mcg Cap PO SCH (09:06)
[2016-05-11] MEDS: GABAPENTIN 300 MG CAPSULE PO SCH (09:06)
[2016-05-11] MEDS: CLOPIDOGREL 75 MG TABLET PO SCH (09:06)
[2016-05-11] MEDS: GABAPENTIN 100 MG CAPSULE PO SCH (09:06)
--- NOTE | 2016-05-11 10:38 | Discharge Summary ---
Medical - DS: Prov Patient information: Note initiated : 05/11/16 at 10:38 am Service Date, if different from initiated Date: [] Patient: Loraine Howard 66 y/o F admitted on 05/09/16 for Shortness of Breath/ COPD, Cor Pulmonale. Chief Complaint: [] Date of admission: 05/09/16 16:30 Discharge date: 05/11/16 Primary care physician: [f_Reg Prim Care Provider] Admitting clinician: Bella Hopkins Discharging clinician: Bella Hopkins Medical - DS: Meds - Discharge Medications Prescriptions: predniSONE [Deltasone] 40 mg PO DAILY #8 tablet Active and Home Medications: Home Medications DULoxetine [Cymbalta] 60 mg PO DAILY 05/09/16 [History Confirmed 05/09/16 Last Taken Unknown] Ondansetron [Zofran] 4 mg SL Q4HP PRN 05/09/16 [History Confirmed 05/09/16 Last Taken Unknown] Active Medications Acetaminophen (Tylenol) 650 mg PO Q4-6HP PRN PRN Reason: PAIN/FEVER > 101 Al Hydrox/Mg Hydrox/Simethicone (Maalox) 30 ml PO Q4-6HP PRN PRN Reason: Dyspepsia Albuterol/Ipratropium (Duoneb) 3 ml NEB Q4HRT [facility] Last Admin: 05/11/16 07:22 Dose: 3 ml Aspirin (Aspirin) 81 mg PO DAILY [facility] Last Admin: 05/11/16 09:05 Dose: 81 mg Atorvastatin Calcium (Lipitor) 10 mg PO HS [facility] Last Admin: 05/10/16 21:03 Dose: 10 mg Azithromycin (Zithromax) 250 mg PO DAILY [facility] Stop: 05/13/16 09:01 Last Admin: 05/11/16 09:06 Dose: 250 mg Chlorhexidine Gluconate (Peridex) 15 ml SWABMOUTH BID [facility] Last Admin: 05/11/16 09:06 Dose: 15 ml Clopidogrel Bisulfate (Plavix) 75 mg PO QDAY [facility] Last Admin: 05/11/16 09:06 Dose: 75 mg Dextrose (Dextrose 50%) 0 ml IV UD PRN PRN Reason: Hypoglycemia Diagnostic Test (Pha) (Accu-Chek) 1 each FS ACHS [facility] Last Admin: 05/11/16 07:55 Dose: 1 each Docusate Sodium (Colace) 100 mg PO BID [facility] Last Admin: 05/11/16 09:05 Dose: 100 mg Duloxetine HCl (Cymbalta) 60 mg PO DAILY [facility] Last Admin: 05/11/16 09:05 Dose: 60 mg Enoxaparin Sodium (Lovenox) 40 mg SQ DAILY [facility] Last Admin: 05/11/16 09:05 Dose: 40 mg Furosemide (Lasix) 40 mg IV Q12 [facility] Last Admin: 05/11/16 09:05 Dose: 40 mg Gabapentin (Neurontin) 100 mg PO TID [facility] Last Admin: 05/11/16 09:06 Dose: 100 mg Gabapentin (Neurontin) 300 mg PO TID [facility] Last Admin: 05/11/16 09:06 Dose: 300 mg Ceftriaxone Sodium 1 gm/ (Dextrose) 50 mls @ 100 mls/hr IV Q24H [facility] Stop: 05/16/16 16:59 Last Infusion: 05/11/16 10:16 Dose: Infused Insulin Human Lispro (Humalog) 0 unit SQ ACHS [facility] PRN Reason: Protocol Last Admin: 05/11/16 08:02 Dose: 1 unit Lorazepam (Ativan) 0.5 mg PO QDAY PRN PRN Reason: ANXIETY/SEDATION Magnesium Hydroxide (Milk Of Magnesia) 30 ml PO DAILYP PRN PRN Reason: Constipation Methylprednisolone Sodium Succinate (Solu-Medrol) 40 mg IV Q8 [facility] Last Admin: 05/11/16 05:54 Dose: 40 mg Naloxone HCl (Narcan) 0.1 mg IV Q2MIN PRN PRN Reason: Opiate Reversal Ondansetron HCl (Zofran) 4 mg IV Q4-6HP PRN PRN Reason: Nausea And Vomiting Oxycodone/Acetaminophen (Percocet 10-325mg) 1 tab PO Q6H PRN PRN Reason: Pain Last Admin: 05/10/16 16:30 Dose: 1 tab Lubiprostone [ (Amitiza] 24 Mcg Cap) 1 dose PO BID [facility] Last Admin: 05/11/16 09:06 Dose: 1 dose Potassium [facility] ([facility]ur) [facility] Last Admin: 05/11/16 07:53 Dose: 20 meq Promethazine HCl (Phenergan) 12.5 mg IV Q4-6HP PRN PRN Reason: Nausea And Vomiting Sodium Biphosphate/Sodium Phosphate (Fleets Adult) 1 dose MS Q3-4DAYS PRN PRN Reason: Constipation Sodium Chloride (Saline Flush) 10 ml IV Q8 [facility] Last Admin: 05/11/16 05:55 Dose: 10 ml Spironolactone (Aldactone) 25 mg PO DAILY [facility] Last Admin: 05/11/16 09:05 Dose: 25 mg Medical - DS: Hosp Hospital course: Mrs. Howard is a 66 year old female with h/o severe copd, recurrent hospital admission for shortness of breath, acute hypoxic, hypercapenic respiratory failure The patient presented 2 days ago for similar complaints, noted to be hypoxic cynotic during presentation. The patient was having elevated Co2 but mildly acidotic ph, she was placed on bipap therapy which she tolerated well. She was given steroids and antibiotics for copd exacerbatino. She responded to the treatment very well, and the next AM was doing much better off bipap. The patient was monitored off bipap and she continued to do well. Her ABG on discharge is 7.41/60/58. The patient has copd with co2 retention. It is imperative that she tries to keep her oxygen saturations between 88-92%, or she has a high risk of relapse, unfortunately it seems this has been reinforced in [facility] multiple times with no avail. I have again reinforced the need to keep the oxygen saturations between 88-92. Patient is still smoking her e cigarettes which are not helping her cause. The patient may benefit from a pulmonary evaluation and likely a trial of roflumilast for her chr bronchitis and severe copd. I will leave this to the discretion of her PCP The patient had mild troponin leak when she presented and on discussing this with her primary basketball commentator Dr Mercado, who noted this is likely from elevated pulmonary pressures, she had a neg cath in 2012. Echo done in the hospital also shows elevated RV pressures. The patient has cor pulmonale, she was diuresed aggressively during this hospital stay and was negative 4850ml at discharge. She is on multiple diuretics at home, which she will continue, these may need to be adjusted by her pcp. The patient was prescribed cefidinir by her PCP, which she had not picked, up, her wbc is normal at time of discharge and I have asked her to shredder picker the prescription and completed the course of antibiotic. She will also be given prednisone for additional 4 days. The patient is on lorazepam and opiates for chr pain, her utox was negative during this visit, I am not sure when her last dose of pain medications was to make sense of this UTOX, however I have discussed the adverse affects of these medications to the patient and explained the need to wean herself off them if possible. I reviewed with her the poor prognosis which she carries and also discussed the possible use of hospice in the future should her condition worsen. The patient thinks she can get better at this time. No changes in home medications have been done at this visit, She will resume he medications as before. Discharge diagnosis: respiratory failure, copd exacerbation, acute corpulmonale - Time Spent with Patient Total time spent providing and/or coordinating discharge services: Greater than 30 minutes Medical - DS: Exam - Constitutional Vitals: Vital Signs Temp Pulse Pulse Resp BP Pulse Ox 05/11/16 07:28 98 H 17 92 05/11/16 06:00 17 129/78 91 05/11/16 05:00 14 115/75 90 05/11/16 04:00 98.3 F 16 127/74 95 05/11/16 03:00 15 108/68 90 05/11/16 02:00 15 106/70 91 05/11/16 01:00 16 125/75 95 05/11/16 00:37 85 92 05/11/16 00:05 84 L 05/11/16 00:00 98.0 F 18 134/82 92 05/10/16 23:00 17 106/64 90 05/10/16 22:22 90 20 92 05/10/16 22:00 17 112/66 90 05/10/16 21:55 94 05/10/16 21:00 98 H 16 113/63 87 L 05/10/16 20:26 86 L 05/10/16 20:00 97.6 F 109 H 20 130/72 87 L 05/10/16 19:38 111 H 05/10/16 19:26 106 H 97 05/10/16 19:01 106 H 22 89 L 05/10/16 19:00 105 H 18 140/63 88 L 05/10/16 18:00 109 H 18 105/53 87 L 05/10/16 17:00 105 H 19 128/74 85 L 05/10/16 16:00 98.1 F 104 H 20 109/67 90 05/10/16 15:30 97 H 24 89 L 05/10/16 15:00 95 H 18 123/68 96 05/10/16 14:30 19 05/10/16 14:00 97 H 18 118/69 96 05/10/16 13:00 96 H 19 102/66 92 05/10/16 12:00 98.3 F 100 H 20 117/63 90 05/10/16 11:13 101 H 12 89 L 05/10/16 11:08 101 H 12 05/10/16 11:00 110 H 18 115/64 90 Intake and Output 05/10/16 05/11/16 05/11/16 21:59 05:59 13:59 Intake Total 900 / 900 220 / 220 50 / 50 Output Total 1490 / 1490 1280 / 1280 100 / 100 Balance -590 / -590 -1060 / -1060 -50 / -50 Intake: IV 50 / 50 Dextrose 5% in Water 50 50 / 50 ml @ 100 mls/hr IV Q24H [facility] with Rocephin 1 gm Rx #:[id number] Oral 900 / 900 220 / 220 Output: Urine Catheter Amount 1490 / 1490 1280 / 1280 100 / 100 Other: Meal Dinner Percent of Meal Consumed 100% Weight 153 lb 6.4 oz Additional comments: Constitutional; Afebrile, cooperative, alert, not in distress. Eyes- No icterus, Pupils equal, reactive, No periorbital swelling Ears- Ext ear normal, hearing normal to conversation. Neck- Midline trachea, supple RS- Air entry equal on both sides, no wheezing but prolonged end expiratory phase, which the patient notes is chronic. CVS- Rate rhythm regular, S1,S2 heard, no gallop, no rub. Abdomen- Soft nontender abdomen, no organomegaly, no tenderness, no guarding or rigidity, CLOTH P[employer]ER- AOOx3, moving all extremities, no focal deficit noted. Medical - DS: Data Labs on day of discharge: Labs from last 24 hours 05/11/16 05/11/16 03:30 03:30 WBC 10.8 RBC 4.26 Hgb 12.6 Hct 40.3 MCV 94.7 MCH 29.6 MCHC 31.3 RDW 15.0 H Plt Count 397 MPV 7.7 Gran % 94.4 H Lymph % (Auto) 2.4 L M[place]rack[place] % (Auto) 2.2 Eos % (Auto) 1.0 Baso % (Auto) 0 Gran # 10.2 H Lymph # 0.3 L [place] # 0.2 Eos # 0.1 Baso # 0 Sodium 131 L Potassium 3.2 L Chloride 80 L Carbon Dioxide 39 H Anion Gap 12.0 BUN 28 H Creatinine 1.1 GFR Calculation 52 Glucose 182 H Uric Acid 7.7 Calcium 9.7 Phosphorus 3.9 Magnesium 2.1 Total Bilirubin 0.5 Direct Bilirubin < 0.2 GGT 18 AST 13 ALT 19 Alkaline Phosphatase 78 Lactate Dehydrogenase 185 Total Protein 7.4 Albumin 4.7 Globulin 2.7 Albumin/Globulin Ratio 1.7 Triglycerides 65 Preliminary micro results at discharge 05/09/16 17:01 Urine Culture - Preliminary Urine - Catheterized Medical - DS: A/P - Patient/Caregiver Discharge Instructions Activity: increase activity as tolerated Diet: Low Sodium (2gm), Cardiac Additional Instructions: Follwo up with PCP in 7 days Take your antibiotics as prescribed by your pcp, take prednisone for additional 4 days. Go to the ER for worsening shortness of breath/ chest pains or any new concerning symptom. - Problem Maintenance (1) Type 2 respiratory failure Status: Acute (2) COPD (chronic obstructive pulmonary disease) with chronic bronchitis Status: Acute (3) Cor pulmonale, acute Status: Acute (4) COPD exacerbation Status: Acute (5) DMII (diabetes mellitus, type 2) Status: Chronic Qualifiers: Diabetes mellitus complication status: with unspecified complications Diabetes mellitus correction insulin use: without correction use Qualified Code( s): E11.8 - Type 2 diabetes mellitus with unspecified complications (6) Metabolic alkalosis Status: Chronic - Follow up Plan Follow up with: Dino Jenkins MD [Primary Care Provider] - Disposition: Home, Self-Care Prognosis: Fair Rehab Potential: Fair I certify that the patient requires SNF services: No Overall status at discharge: patient is progressing back to baseline Medical - DS: Qual - VTE Deep Vein Thrombosis/Pulmonary Embolism Present on Admission: No
== END 2016-05-11 13:55 | disposition home or self-care (01) | DRG 190 ==
LOC: ED 11:05 → ICU 16:30
PROVIDERS: ADMIT Internal Medicine; ATTEND Internal Medicine

== ENCOUNTER 2016-05-15 06:58 | Inpatient (IN) ==
[2016-05-15] MEDS ORDERED: methylPREDNISolone SOD SUCC 125 MG/2 ML VIAL IV ONE (07:06)
[2016-05-15] MEDS ORDERED: IPRATROPIUM/ALBUTEROL 3 ML AMPUL.NEB NEB ONE ×2 (07:08→10:48)
--- NOTE | 2016-05-15 07:12 | Emergency Department Note ---
SOB HPI - General Chief Complaint: Shortness of Breath/Dyspnea Stated Complaint: short of breath Time Seen by Provider: 05/15/16 07:06 Source: patient, EMS Mode of arrival: ambulatory - History of Present Illness 58-year-old female, recently admitted to hospital, history of end-stage COPD called the EMS because she was having difficulty breathing is morning. Family and she called and noticed that her O2 sats were in the 60s up. She was on one half liters of. She does have brown was CO2 retention, was on BiPAP one week ago in the hospital for 3 days for COPD exacerbation, patient has been talking to hospice but no definite decision has been made a. Does not wish to be on a ventilator. No fevers reported, but she has increased respiratory rate, difficulty breathing, O2 sats are low, mild and vague chest discomfort in the last 24 hours MD Complaint: shortness of breath - Related Data Home Medications Medication Instructions Recorded Confirmed Aspirin [Lo-Dose Aspirin EC] 81 mg PO ONCE 11/10/15 05/15/16 Ipratropium/Albuterol Sulfate 1 puff INH QIDP 11/11/15 05/15/16 [Combivent] Lactulose [Enulose] 30 gm PO BID PRN 11/11/15 05/15/16 Nitroglycerin [Nitrostat] 0.4 mg SL Q5M PRN 11/11/15 05/15/16 cholecalciferol (vitamin D3) 1,000 1,000 unit PO ONCE 02/11/16 05/15/16 unit capsule clopidogrel 75 mg tablet 75 mg PO QDAY 90 Days 04/13/16 05/15/16 Oxygen 1.5 l INHALATION .continous 05/02/16 05/15/16 ferrous sulfate 325 mg (65 mg 325 mg PO QDAY 05/08/16 05/15/16 iron) tablet DULoxetine [Cymbalta] 60 mg PO DAILY 05/09/16 05/15/16 Ondansetron [Zofran] 4 mg SL Q4HP PRN 05/09/16 05/15/16 Previous Rx's Medication Instructions Recorded atorvastatin 10 mg tablet 10 mg PO QDAY #60 tab 01/20/16 potassium chloride ER 10 mEq 20 meq PO BID #120 tab 01/20/16 tablet,extended release torsemide 20 mg tablet 20 mg PO DAILY #30 tab 02/01/16 gabapentin 300 mg capsule 300 mg PO TID #90 cap 02/03/16 spironolactone 25 mg tablet 25 mg PO DAILY #30 tab 03/02/16 gabapentin 100 mg capsule 100 mg PO TID #90 cap 03/13/16 linaclotide 290 mcg capsule 290 mcg PO ACB #30 cap 03/20/16 Acetaminophen [Tylenol] 650 mg PO Q4-6HP PRN #0 tab 04/28/16 Docusate Sodium [Colace] 100 mg PO BID cap 04/28/16 Multivit,Ther Iron,Ca,FA & Min 1 tab PO DAILY tab 04/28/16 [Multivitamin W/Minerals] Sennosides/Docusate Sodium [Senna 1 tab PO HS tab 04/28/16 Plus Tablet] oxyCODONE/APAP [Percocet 10-325Mg] 1 tab PO Q6H PRN #10 tab 04/28/16 ipratropium-albuterol 0.5 mg-3 3 ml INHALATION QID #3 ml 05/01/16 mg(2.5 mg base)/3 mL nebulization soln metolazone 5 mg tablet 5 mg PO QDAY #90 tab 05/01/16 fluticasone 200 mcg-vilanterol 25 1 inh INHALATION QDAY #30 each 05/02/16 mcg/dose powder for inhalation lorazepam 0.5 mg tablet 0.5 mg PO QDAY PRN #14 tab 05/02/16 lubiprostone 24 mcg capsule 24 mcg PO BID #60 cap 05/03/16 cefdinir 300 mg capsule 300 mg PO Q12H 10 Days 05/08/16 predniSONE [Deltasone] 40 mg PO DAILY #8 tablet 05/11/16 Allergies Allergy/AdvReac Type Severity Reaction Status Date / Time doxycycline [DOXYCYCLINE] AdvReac Intermediate GI Upset Verified 05/15/16 07:05 levofloxacin AdvReac Intermediate Itching Verified 05/15/16 07:05 morphine AdvReac Mild Nausea/Vomi Verified 05/15/16 07:05 ting Review of Systems All systems ED: reviewed and negative except as stated. Past Medical History - Past Medical History Source: nursing notes reviewed Medical history: Reports: arthritis, CHF, COPD, coronary artery disease, diabetes, hyperlipidemia, hypertension, renal disease, other Surgical history ED: Reports: appendectomy, cataract, hysterectomy, orthopedic, other, other Psychiatric history: Reports: anxiety, depression [employer] history: Reports: bilateral tubal ligation, other Family history: Reports: no significant family history - Social History smoking status: Former smoker Alcohol use: Reports: None Drug use: Reports: none Physical Exam - General Limitations: no limitations General appearance: alert, in distress, cachectic - Head Head exam: atraumatic, normocephalic, normal inspection - Eye Eye exam: Present: normal appearance, PERRL, EOMI, other (ositive exophthalmos) - ENT ENT exam: normal exam, normal oropharynx, mucous membranes dry - Neck Neck exam: Present: normal inspection - Chest Chest inspection: Present: normal inspection - Respiratory Respiratory exam: Present: respiratory distress, wheezes, prolonged expiratory phase, other (basilar rhonchi and rales) - Cardiovascular Cardiovascular exam: Present: regular rate, normal rhythm - Abdominal Exam Abdominal exam: Present: soft. Absent: distention - Extremities Exam Extremities exam: Present: normal inspection, full ROM. Absent: tenderness, pedal edema, joint swelling - Neurological Exam Neurological exam: Present: alert, oriented X3 - Psychiatric Psychiatric exam: Present: normal affect - Skin Skin exam: Present: warm, dry, intact Course - Reevaluation(s) Reevaluation #1: Patient was given breathing treatments, started on Solu-Medrol, we kept her on oxygen, although her PCO2 was 80. She is chronically at home in the 60s and 70s and her mentation was still appropriate. She is acidotic, more so than last time and is compensating with her metabolic acidosis and respiratory alkalosis. Her troponin was 0.03, proBNP was elevated 1720, her CRP was elevated 4.3, and at this point, she will be admitted for COPD exacerbation, CO2 retention, CHF. is unwilling to take her home at this point, she sounds terrible, very tight despite several breathing treatments and Solu- Medrol and she may need treatment for CHF as well. She is aware that she will have to go to a facility after hospitalization or she can opt to be placed on hospice. Discussed with Dr. Espinoza Vital Signs Temperature 98.4 F 05/15/16 06:59 Pulse Rate 103 H 05/15/16 06:59 Respiratory Rate 28 H 05/15/16 06:59 Blood Pressure 126/69 05/15/16 06:59 Pulse Oximetry (%) 74 L 05/15/16 06:59 Temperature 98.4 F 05/15/16 07:15 Pulse Rate 92 H 05/15/16 08:38 Respiratory Rate 20 05/15/16 08:38 Blood Pressure 121/82 05/15/16 08:38 Pulse Oximetry (%) 97 05/15/16 08:38 Shortness of Breath/Dyspnea - [facility] Narrative Medical decision making narrative: final diagnosis is COPD exacerbation. #2. CHF. #3. End-stage COPD number for mucus plugging #5. CO2 retention - Lab Data Result diagrams: 05/15/16 07:18 05/15/16 07:18 Lab Results 05/15/16 05/15/16 05/15/16 Range/Units 07:18 07:18 07:18 WBC 11.7 H (4.5-11.0) K/mcL RBC 4.22 (4.00-5.20) M/mcL Hgb 12.4 (12.0-15.0) g/dL Hct 39.1 (36.0-48.0) % MCV 92.8 (80.0-100.0) fL MCH 29.5 (26.0-34.0) pg MCHC 31.8 (31.0-36.0) g/dL RDW 14.6 H (11.5-14.5) % Plt Count 321 (140-440) K/mcL MPV 7.7 (7.4-10.4) fL Gran % 82.4 H (38.0-78.0) % Lymph % (Auto) 5.8 L (15.5-49.0) % Menard % (Auto) 11.2 H (1.0-9.0) % Eos % (Auto) 0.5 (0.0-7.0) % Baso % (Auto) 0.1 (0.0-2.0) % Gran # 9.7 H (1.8-8.0) K/mcL Lymph # 0.7 L (1.5-4.8) K/mcL Menard # 1.3 H (0.1-0.9) K/mcL Eos # 0.1 (0.0-0.7) K/mcL Baso # 0 (0.0-0.3) K/mcL Sodium 126 L (133-145) mmol/L Potassium 3.8 (3.3-5.1) mmol/L Chloride 75 L (96-108) mmol/L Carbon Dioxide 38 H (22-30) mmol/L Anion Gap 13.0 (8-16) BUN 34 H (8-23) mg/dl Creatinine 1.0 (0.6-1.1) mg/dl GFR Calculation 58 Glucose 134 H (70-105) mg/dL Calcium 9.2 (8.6-10.4) mg/dl Total Bilirubin 0.4 (0.0-1.0) mg/dL AST 20 (0-37) U/l ALT 16 (0-40) U/l Alkaline Phosphatase 74 (39-117) U/L Total Creatine Kinase 27 (24-170) IU/L Troponin T 0.03 (0-0.03) ng/ml C-Reactive Protein 4.3 H (0.0-0.8) mg/dl NT-Pro-B Natriuret Pep 1720.0 H (0-125) pg/ml Total Protein 6.6 (5.9-8.4) gm/dL Albumin 4.1 (3.2-5.2) gm/dL Globulin 2.5 (2.2-3.7) gm/dL Albumin/Globulin Ratio 1.6 (1.0-2.3) Disposition Clinical Impression: Acute exacerbation of chronic obstructive airways disease, Cor pulmonale, acute , Type 2 respiratory failure Disposition: Xfer As Inpt ([facility]) Condition: Undetermined Referrals: Dino Jenkins MD [Primary Care Provider] -
[2016-05-15] MEDS ORDERED: HYDROmorphone 2 MG/ML SYRINGE IV PRN (07:14)
[2016-05-15] MEDS ORDERED: ASPIRIN 81 MG TAB.CHEW CHEWED ONE (07:16)
--- NOTE | 2016-05-15 07:50 | XRay Report ---
CLINICAL INFORMATION: Dyspnea COMPARISON: 05/09/2016, 04/24/2016, 12/21/2015 FINDINGS: Lungs are negative. No parenchymal infiltrate or mass. Heart size and vascularity are normal. No pulmonary edema. No pulmonary congestion. Jazmín and mediastinum are negative. Costophrenic angles are normal. No evidence for significant pleural effusion. IMPRESSION: 1. No acute or focal abnormality. 2. No interval change since 05/09/2016. Interpreted and Authenticated by: Zak Deutsch 05/15/16
[2016-05-15 08:11] LABS: Basophils # (Auto) 0 K/mcL (0.0-0.3); Basophils % (Auto) 0.1 % (0.0-2.0); Eosinophils # (Auto) 0.1 K/mcL (0.0-0.7); Eosinophils % (Auto) 0.5 % (0.0-7.0); Granulocytes % (Auto) 82.4 % (38.0-78.0); Lymphocytes # (Auto) 0.7 K/mcL (1.5-4.8); Lymphocytes % (Auto) 5.8 % (15.5-49.0); Mean Cell Volume 92.8 fL (80.0-100.0); Mean Corpuscular HGB Conc 31.8 g/dL (31.0-36.0); Mean Corpuscular Hemoglobin 29.5 pg (26.0-34.0); Monocytes # (Auto) 1.3 K/mcL (0.1-0.9); Monocytes % (Auto) 11.2 % (1.0-9.0); Platelet Count 321 K/mcL (140-440); RBC 4.22 M/mcL (4.00-5.20); Red Cell Distribution Width 14.6 % (11.5-14.5)
[2016-05-15 08:24] LABS: ALT/SGPT 16 U/l (0-40); Albumin 4.1 gm/dL (3.2-5.2); Albumin/Globulin Ratio 1.6 (1.0-2.3); Alkaline Phosphatase 74 U/L (39-117); Blood Urea Nitrogen 34 mg/dl (8-23); C-Reactive Protein 4.3 mg/dl (0.0-0.8); Creatine Kinase 27 IU/L (24-170)
[2016-05-15] MEDS ORDERED: oxyCODONE/APAP 5/325MG TABLET PO PRN (08:54)
[2016-05-15] MEDS ORDERED: NALOXONE HCL 0.4 MG/ML VIAL IV PRN ×2 (08:54→10:29)
[2016-05-15] MEDS ORDERED: ACETAMINOPHEN 325 MG TABLET PO PRN (08:54)
[2016-05-15] MEDS ORDERED: CLINDAMYCIN 600 MG in DEXTROSE 5% IN WATER 50 ML IV SCH (09:00)
[2016-05-15] MEDS ORDERED: cefTRIAXone 1 GM in DEXTROSE 5% IN WATER 50 ML IV SCH (09:00)
[2016-05-15] MEDS ORDERED: SPIRONOLACTONE 25 MG TABLET PO SCH (09:00)
--- NOTE | 2016-05-15 10:15 | Internal Med History&Physical ---
Medical - H&P: HPI Patient information: Note initiated : 05/15/16 at 10:12 am Service Date, if different from initiated Date: [] Patient: Loraine Howard 66 y/o F admitted on for Shortness of breath. Chief Complaint: [] History of present illness: Ms. Howard is a 66 year old female with a history of chronic respiratory failure hypoxic, hypercarbic. She has been admitted twice recently with worsening respiratory failure. She was treated for pneumonia and COPD and briefly with BiPAP, and eventually became stable enough to return home. Unfortunately, at home, it appears she overuses her oxygen, and possibly her pain medications, and becomessomewhat obtunded, which then causes her to bring her back to the hospital. she reportedly also had a negative cardiac angiogram fairly recently that did not show coronary disease. today, she presented back to the emergency roomia EMS, complaining of difficulty breathing. Her family reports that her O2 saturations have dropped as low as the 60s. she reportedly did have an O2 saturation of 74% this morning , and I believe that was on2 L of oxygen. in the emergency room she was given IV antibiotics oxygen, bronchodilators and IV steroids, and seems to be improving. She is now admitted for further observation and treatment. On interview at this time, she is sitting up in a chair, and is fairly conversant. However she is a bit drifty and seems to have a little bit of trouble keeping her eyes open at times. he states "I guess I wasn't breathing well". She says she understands that sometimes she uses too much oxygen, but says she has been trying not to let her O2 saturations get too high. Her apparently reported to other staff that his son has told him to turn off her oxygen and her saturations Below a certain point,so he does what his son tells him. she says she is also trying to take less pain medication and she understands that can affect her mental status as well. When asked what is going on at home that makes it so that she cannot seem to be compliant with instructions regarding pain meds and oxygen, she repeatedly states that she hat her life is just very stressful because of her children and grandchildren that she has to take care of. unfortunately, she does not appear to be very clearheaded on review of systems. She says yes to every question, including fevers, chills, headaches, coughwith some blood streaks in her phlegm, chest pain, palpitations, shortness of breath. She seems to deny any GI issues, but reports some type of urinary issue which she says is related to a fecal something? She cannot quite complete that thought.she may be trying to describe hemorrhoids. Medical History COPD (chronic obstructive pulmonary disease) with chronic bronchitis (Acute) Cor pulmonale, acute (Acute) Respiratory failure with hypoxia and hypercapnia status post admission May 09 and April 24 CHF (congestive heart failure) (Acute) COPD exacerbation (Acute) Coronary artery disease with stable angina pectoris (Acute) Epistaxis (Acute) Hypercapnia (Acute) Left lower lobe pneumonia (Acute) Anxiety disorder (Chronic) Back pain (Chronic) CAD (coronary artery disease) (Chronic) Carotid stenosis (Chronic) Chronic constipation (Chronic) Chronic, continuous use of opioids (Chronic) DMII (diabetes mellitus, type 2) (Chronic) Depressive disorder (Chronic) Gastritis, acute (Chronic) Hyperlipidemia (Chronic) Hypokalemia (Chronic) Metabolic alkalosis (Chronic) Neuropathy (Chronic) Sleep apnea (Chronic) Tobacco abuse (Chronic) Vaginal vault prolapse, posthysterectomy (Chronic) Vertigo, benign positional (Chronic) Vitamin D deficiency (Chronic) Past Surgical History H/O cervical spine surgery (Resolved) H/O reduction mammoplasty (Resolved) H/O tubal ligation (Resolved) History of surgery (Resolved) S/P WAI-BSO (Resolved) S/P appendectomy (Resolved) S/P colonoscopy (Resolved 10/22/12) S/P dilation and curettage (Resolved) Uterine prolapse (Resolved) medications: From her discharge on May 11; torsemide 20 mg daily Metolazone 5 mg daily DuoNeb's 4 times a day Fluticasone-Vilanterol inhaler 200/25 one puff daily prednisone 40 mg daily Cymbalta 60 mg daily iron sulfate 325 mg daily Vitamin D 1000 units daily Oxygen 0.5-2.5 L, continuous. Nitroglycerin 0.4 mg sublingual when necessary Lactulose 30 g twice a day when necessary Zofran 4 mg every 4 hours when necessary Tylenol when necessary Maalox when necessary Aspirin 81 mg daily Lipitor 10 mg daily (Zithromax, to be completed May 13post (Chlorhexidine swabs twice a day Plavix 75 mg daily colace 100 mg twice a day Gabapentin 400 mg 3 times a day Ativan 0.5 mg daily when necessary Percocet 103 25 one every 6 hours when necessary Amitiza 24 g by mouth twice a day K-Dur 20 mEq twice a day Phenergan when necessary Spironolactone 25 mg daily allergies: Doxycycline, Levaquin, morphine Family history: Father cardiac disease, . Social history: ex smoker, but now uses e cigs denies etoh, denies drug use. Medical - H&P: Meds Home Medications Medication Instructions Recorded Confirmed Type Aspirin [Lo-Dose Aspirin EC] 81 mg PO ONCE 11/10/15 05/15/16 History Ipratropium/Albuterol Sulfate 1 puff INH QIDP 11/11/15 05/15/16 History [Combivent] Lactulose [Enulose] 30 gm PO BID PRN 11/11/15 05/15/16 History Nitroglycerin [Nitrostat] 0.4 mg SL Q5M PRN 11/11/15 05/15/16 History cholecalciferol (vitamin D3) 1,000 1,000 unit PO ONCE 02/11/16 05/15/16 History unit capsule clopidogrel 75 mg tablet 75 mg PO QDAY 90 Days 04/13/16 05/15/16 History Oxygen 1.5 l INHALATION .continous 05/02/16 05/15/16 History ferrous sulfate 325 mg (65 mg 325 mg PO QDAY 05/08/16 05/15/16 History iron) tablet DULoxetine [Cymbalta] 60 mg PO DAILY 05/09/16 05/15/16 History Ondansetron [Zofran] 4 mg SL Q4HP PRN 05/09/16 05/15/16 History Allergies Allergy/AdvReac Type Severity Reaction Status Date / Time doxycycline [DOXYCYCLINE] AdvReac Intermediate GI Upset Verified 05/15/16 07:05 levofloxacin AdvReac Intermediate Itching Verified 05/15/16 07:05 morphine AdvReac Mild Nausea/Vomi Verified 05/15/16 07:05 ting Medical - H&P: Exam - Constitutional Vitals: Temp Pulse Resp BP Pulse Ox 98.4 F 106 H 19 141/62 95 05/15/16 07:15 05/15/16 09:52 05/15/16 09:52 05/15/16 09:52 05/15/16 09:52 Exam: n exam, she is a well-developed well-nourished elderly female in no acute distress. She does appear sleepy during our interview, and occasionally closes her eyes involuntarily. Head is normocephalic, atraumatic. Eyes: PERRLA, EOMI, anicteric. TMs and canals are clear. Pharynx is clear. Mucosa appears normal. Neck:Appears supple, without obvious lymphadenopathy, JVD, thyromegaly, bruits. Cardiac exam: Shows regular rate and rhythm, without murmurs, rubs, gallops. Lungs: Have decreased breath sounds, with scattered crackles and very soft end expiratory wheezes. There is no sensory muscle use. Abdomen: Is soft and nontender. There is an implanted pain device noted in the left abdomen. Extremities: Show no significant cyanosis, clubbing, edema. Neurologic exam:Patient is awake, but somewhat sleepy. She is calm and cooperative. She is oriented to the year in the month, but not the day. Motor exam is grossly nonfocal, but she does have some involuntary twitching which is baseline for her. In the past, this was thought to be associated with hypercarbia, but also with pain medications. [id number] exam is fairly accurate, but slow. Medical - H&P: Reslt - Labs CBC & Chem 7: 05/15/16 07:18 05/15/16 07:18 Labs: Short CBC 05/15/16 Range/Units 07:18 WBC 11.7 H (4.5-11.0) K/mcL Hgb 12.4 (12.0-15.0) g/dL Hct 39.1 (36.0-48.0) % Plt Count 321 (140-440) K/mcL BMP 05/15/16 07:18 Sodium 126 L Potassium 3.8 Chloride 75 L Carbon Dioxide 38 H BUN 34 H Creatinine 1.0 Glucose 134 H Calcium 9.2 Cardiac Enzymes 05/15/16 05/15/16 Range/Units 07:18 07:18 Total Creatine Kinase 27 (24-170) IU/L Troponin T 0.03 (0-0.03) ng/ml Liver Function 05/15/16 Range/Units 07:18 Total Bilirubin 0.4 (0.0-1.0) mg/dL AST 20 (0-37) U/l ALT 16 (0-40) U/l Alkaline Phosphatase 74 (39-117) U/L Albumin 4.1 (3.2-5.2) gm/dL BNP is elevated at 1720. ABG: PH 7.35, PCO2 84, PaO2 68, bicarbonate 46, O2 saturation 92%, on 3 L of oxygen EKG shows normal sinus rhythm at a rate of about 100 with left axis deviation, and no obvious acute ischemic changes. chest x-ray:Shows no acute disease, and no change from May 09, 2016. Medical - H&P: A/P - Narrative A/P Narrative: #1. Pulmonary- Acute on chronic respiratory failure hypercapnic, hypoxic.. -This is this patient's third admission for the same problem in a month. she seems to do well while in the hospital,and keeping her bronchodilators and oxygen supply closely monitored. She fails when she returns home, it appears that this is at least partly due to a complicated family situation. he patient' s mental status gets depressed whenever her O2 saturations run too high, and also when she takes too much pain medication. Unfortunately her husbanddoes not seem to fully understand how to managethese things, and has been unable to help her appropriately manage her medications. They have both consistently refused home health visits and other help at home. She is also refused rehabilitation and alternate living situations in the past. At this time it is clear that she is in danger of respiratory failure every time she returns home. Unfortunately, she does not generally seem willing to accept help. -She has been admitted to telemetry for observation. We will try to keep her O2 saturations between 88 and 90% and continue aggressive treatment with bronchodilators, and continue teroids. It does not appear at this time, that she has another acute pneumonia, so I will continue to observe for now. -We have asked social work to meet with the patient and her , to explore discharge options that might be safer for her. -She does have a limited code order, and has stated that she does not want back on the ventilator at any point. However she also denies wanting to seek hospice care, or give up on trying to get better. #2. Cardiac. -congestive heart failure by history, but clinically this appears compensated at this time. She may be a bit on the dry side, volume pan.-History of coronary artery disease. Continue aspirin, Plavix, statin. -given that she looks a little dry, and has electrolyte abnormalities, may hold her metolazone for now. #3. Chronic pain. -continue low-dose when necessary narcotics. also continue with gabapentin. Continue Cymbalta. #4. Noncompliance with medical regimen-Again we have asked social work to continue to work with the family to address this issue. #5. CODE STATUS: Limited code. No ventilation. #6. DVT prophylaxis: Continue Plavix, add SCDs. #7. Fluids and nutrition. -the patient does have hyponatremia, hypochloremia likely due to a combination of side effects of her diuretics and chronic respiratory acidosis with metabolic compensation. #8. Infectious disease.She does have a mildly elevated white blood cell count today, but I expect this is from the steroids. Continue to monitor. #9. . -Patient did have urinary retention earlier this month, so we will recheck a postvoid residual. #10. Altered mental status. We believe this is due to 2 acute on chronic respiratory failure with hypercarbia and hypoxia. -The patient also has multiple muscle twitches, which has been seen in her before. It is thought that this is related to her narcotics as well as her hypercarbia. this visit is taken approximately 60 minutes of heart today, to review the patient's records, review her case with the ER [facility], interview and examine her, and write orders.
[2016-05-15] MEDS ORDERED: ONDANSETRON 4 MG/2 ML VIAL IV PRN (10:29)
[2016-05-15] MEDS ORDERED: ALBUTEROL SULFATE 2.5 MG/3 ML NEBULIZER NEB PRN (10:29)
[2016-05-15] MEDS ORDERED: methylPREDNISolone SOD SUCC 125 MG/2 ML VIAL IV SCH (12:00)
[2016-05-15] MEDS: methylPREDNISolone SOD SUCC 125 MG/2 ML VIAL IV SCH ×3 (12:11→23:56)
[2016-05-15] MEDS: IPRATROPIUM/ALBUTEROL 3 ML AMPUL.NEB NEB SCH ×2 (13:43→19:14)
[2016-05-15] MEDS ORDERED: NITROGLYCERIN 0.4 MG TAB.SUBL SL PRN (13:58)
[2016-05-15] MEDS ORDERED: LORazepam 0.5 MG TABLET PO PRN (13:58)
[2016-05-15] MEDS ORDERED: oxyCODONE/APAP 10/325MG TABLET PO PRN (13:58)
[2016-05-15] MEDS: GABAPENTIN 100 MG CAPSULE PO SCH ×2 (14:46→21:26)
[2016-05-15] MEDS: GABAPENTIN 300 MG CAPSULE PO SCH ×2 (14:46→21:27)
[2016-05-15] MEDS ORDERED: LACTULOSE 20 GM/30 ML ORAL.SOL PO PRN (17:00)
[2016-05-15] MEDS: POTASSIUM CHLORIDE 20 MEQ TABLET PO SCH (17:40)
[2016-05-15 18:27] LABS: Hemoglobin A1C 6.1 % HGB (4.0-6.0)
[2016-05-15] MEDS ORDERED: DOCUSATE SODIUM 100 MG CAPSULE PO SCH (21:00)
[2016-05-15] MEDS: DOCUSATE SODIUM 100 MG CAPSULE PO SCH (21:26)
[2016-05-15] MEDS: ATORVASTATIN 20 MG TABLET PO SCH (21:26)
[2016-05-15] MEDS: SENNOSIDES/DOCUSATE SODIUM 1 TAB TABLET PO SCH (21:27)
[2016-05-15] MEDS: LUBIPROSTONE 24 MCG PO SCH (21:27)
[2016-05-15] MEDS: oxyCODONE/APAP 5/325MG TABLET PO PRN (23:31)
[2016-05-16] MEDS: GABAPENTIN 100 MG CAPSULE PO SCH ×4 (01:10→19:23)
[2016-05-16] MEDS: GABAPENTIN 300 MG CAPSULE PO SCH ×4 (01:11→19:23)
[2016-05-16] MEDS: IPRATROPIUM/ALBUTEROL 3 ML AMPUL.NEB NEB SCH ×4 (02:01→19:33)
[2016-05-16] MEDS: methylPREDNISolone SOD SUCC 125 MG/2 ML VIAL IV SCH ×3 (05:32→17:59)
[2016-05-16 06:57] LABS: Basophils # (Auto) 0 K/mcL (0.0-0.3); Basophils % (Auto) 0 % (0.0-2.0); Eosinophils # (Auto) 0 K/mcL (0.0-0.7); Eosinophils % (Auto) 0.5 % (0.0-7.0); Granulocytes % (Auto) 91.1 % (38.0-78.0); Lymphocytes # (Auto) 0.4 K/mcL (1.5-4.8); Lymphocytes % (Auto) 4.6 % (15.5-49.0); Mean Cell Volume 93.1 fL (80.0-100.0); Mean Corpuscular HGB Conc 32.1 g/dL (31.0-36.0); Mean Corpuscular Hemoglobin 29.9 pg (26.0-34.0); Monocytes # (Auto) 0.3 K/mcL (0.1-0.9); Monocytes % (Auto) 3.8 % (1.0-9.0); Platelet Count 282 K/mcL (140-440); RBC 4.28 M/mcL (4.00-5.20); Red Cell Distribution Width 14.6 % (11.5-14.5)
[2016-05-16 07:38] LABS: ALT/SGPT 13 U/l (0-40); Albumin 4.3 gm/dL (3.2-5.2); Alkaline Phosphatase 75 U/L (39-117); Blood Urea Nitrogen 26 mg/dl (8-23)
[2016-05-16] MEDS: TORSEMIDE 10 MG TABLET PO SCH (08:35)
[2016-05-16] MEDS: ASPIRIN 81 MG TAB.CHEW PO SCH (08:35)
[2016-05-16] MEDS: SPIRONOLACTONE 25 MG TABLET PO SCH (08:35)
[2016-05-16] MEDS: predniSONE 20 MG TABLET PO SCH (08:35)
[2016-05-16] MEDS: POTASSIUM CHLORIDE 20 MEQ TABLET PO SCH ×2 (08:35→18:00)
[2016-05-16] MEDS: CLOPIDOGREL 75 MG TABLET PO SCH (08:36)
[2016-05-16] MEDS: FERROUS SULFATE 325 MG TABLET PO SCH (08:36)
[2016-05-16] MEDS: LUBIPROSTONE 24 MCG PO SCH ×2 (08:36→19:23)
[2016-05-16] MEDS: MULTIVIT,THER IRON,CA,FA & MIN 1 TABLET PO SCH (08:36)
[2016-05-16] MEDS: DOCUSATE SODIUM 100 MG CAPSULE PO SCH ×2 (08:36→19:23)
[2016-05-16] MEDS: DULoxetine 30 MG CAPSULE PO SCH (08:39)
[2016-05-16] MEDS: VITAMIN D3 1,000 UNIT TABLET PO SCH (08:39)
[2016-05-16] MEDS ORDERED: SPIRONOLACTONE 25 MG TABLET PO SCH (09:00)
[2016-05-16] MEDS: oxyCODONE/APAP 5/325MG TABLET PO PRN (10:22)
--- NOTE | 2016-05-16 10:41 | Internal Med Progress Note ---
Medical - PN: Subj Patient information: Note initiated : 05/16/16 at 10:40 am Service Date, if different from initiated Date: [] Patient: Loraine Howard 66 y/o F admitted on 05/15/16 for Shortness of breath. Chief Complaint: [] Interval history: May 15, 2016:History of present illness: Ms. Howard is a 66 year old female with a history of chronic respiratory failure hypoxic, hypercarbic. She has been admitted twice recently with worsening respiratory failure. She was treated for pneumonia and COPD and briefly with BiPAP, and eventually became stable enough to return home. Unfortunately, at home, it appears she overuses her oxygen, and possibly her pain medications, and becomessomewhat obtunded, which then causes her to bring her back to the hospital. she reportedly also had a negative cardiac angiogram fairly recently that did not show coronary disease. today, she presented back to the emergency room via EMS, complaining of difficulty breathing. Her family reports that her O2 saturations have dropped as low as the 60s. she reportedly did have an O2 saturation of 74% this morning , and I believe that was on2 L of oxygen. in the emergency room she was given IV antibiotics oxygen, bronchodilators and IV steroids, and seems to be improving. She is now admitted for further observation and treatment. On interview at this time, she is sitting up in a chair, and is fairly conversant. However she is a bit drifty and seems to have a little bit of trouble keeping her eyes open at times. he states "I guess I wasn't breathing well". She says she understands that sometimes she uses too much oxygen, but says she has been trying not to let her O2 saturations get too high. Her apparently reported to other staff that his son has told him to turn off her oxygen and her saturations Below a certain point,so he does what his son tells him. she says she is also trying to take less pain medication and she understands that can affect her mental status as well. When asked what is going on at home that makes it so that she cannot seem to be compliant with instructions regarding pain meds and oxygen, she repeatedly states that she hat her life is just very stressful because of her children and grandchildren that she has to take care of. unfortunately, she does not appear to be very clearheaded on review of systems. She says yes to every question, including fevers, chills, headaches, coughwith some blood streaks in her phlegm, chest pain, palpitations, shortness of breath. She seems to deny any GI issues, but reports some type of urinary issue which she says is related to a fecal something? She cannot quite complete that thought.she may be trying to describe hemorrhoids. May 16, 2016: Overnight, the nurses note that whenever the patient slept her O2 saturations took dramatic drops. They would improve when she was awakened and stimulated. FiO2 was titrated to keep her sats above 88%. Unfortunately, this morning's blood gas looks worse in terms of her CO2 retention. serum bicarbonate is also continuing to rise. she continues to be groggy and sleepy on interview today. She states she is feeling better, but often falls asleep mid sentence. I briefly discussed with her using BiPAP at night and as needed during the day. She believes she was previously prescribed BiPAP for home use several years ago, but cannot recall the doctors involved or how long ago it was. She believes she had a sleep study within the last few years as well.Otherwise, she denies subjective fever or chills. She still has a cough and still feels short f breath. She otherwise denies chest pain or palpitations, abdominal pain, nausea or vomiting or diarrhea, or dysuria. - Constitutional Vitals: Vital Signs Temp Pulse Resp BP Pulse Ox 97.8 F 110 H 22 131/87 88 L 05/16/16 08:00 05/16/16 08:00 05/16/16 08:00 05/16/16 08:00 05/16/16 08:00 Period Temp Pulse Resp BP Sys/Cano Pulse Ox Last 24 Hr 97.2 F-98.2 F 87-110 18-86 118-135/55-88 60-94 Intake and Output 05/15/16 05/16/16 05/16/16 21:59 05:59 13:59 Intake Total 600 / 600 120 / 120 Output Total 200 / 200 400 / 400 425 / 425 Balance -200 / -200 200 / 200 -305 / -305 Weight 148 lb 6.4 oz Intake & Output: Intake & Output 05/15/16 05/16/16 05/16/16 21:59 05:59 13:59 Intake Total 600 / 600 120 / 120 Output Total 200 / 200 400 / 400 425 / 425 Balance -200 / -200 200 / 200 -305 / -305 Weight 148 lb 6.4 oz Intake: Oral 600 / 600 120 / 120 Output: Void Amount 200 / 200 400 / 400 425 / 425 Other: Meal snack Breakfast Percent of Meal Consumed 25% 100% Feeding Ability Assist with Tray Set Up Assist with Tray Set Up # Bowel Movements 0 1 Exam: on exam, she is somewhat somnolent. Her answers are generally appropriate to questions, but she has great difficulty remembering things. Neck is supple without obvious JVD. Cardiac examshows regular rate and rhythm. Lungs:have decreased breath sounds throughout, with occasional scattered soft expiratory wheezes. There is no accessory muscle use.Abdomen: Is soft and nontender. Extremities: Show no significant edema. neurologic exam:the patient continues to have depressed mental status, most likely due to hypercarbia. Motor exam is grossly nonfocal. Medical - PN: Obj Da - Labs CBC & Chem 7: 05/16/16 04:05 05/16/16 04:05 Labs: Abnormal Lab Results 05/16/16 05/16/16 04:05 04:05 RDW 14.6 H Gran % 91.1 H Lymph % (Auto) 4.6 L Lymph # 0.4 L Chloride 81 L Carbon Dioxide 42 H* BUN 26 H Glucose 167 H 05/16: her previous records fromOctober 06, 2015, sleep study: The patient had a sleep study, which actually showed no respiratory events Her room air saturation on room airwhile awake was 97%, and never dropped below 88% for the entire study, so this was read as a normal sleep study. ABG: On 1.5 L Oxymizer mask: pH 7.36, PCO2 96, PO2 63, bicarbonate 54 , saturation 87-91% Induced sputum shows moderate squamous epithelial cells, with moderate gram- positive cocci and gram-negative bacilli blood cultures are negative so far. May 15: BNP is elevated at 1720. ABG: PH 7.35, PCO2 84, PaO2 68, bicarbonate 46, O2 saturation 92%, on 3 L of oxygen EKG shows normal sinus rhythm at a rate of about 100 with left axis deviation, and no obvious acute ischemic changes. chest x-ray:Shows no acute disease, and no change from May 09, 2016. Meds: Medications Acetaminophen (Tylenol) 650 mg PO Q6HP PRN PRN Reason: PAIN/FEVER > 101 Albuterol Sulfate (Ventolin) 2.5 mg NEB Q4HRT PRN PRN Reason: Shortness Of Breath Or Wheezing Last Admin: 05/15/16 23:56 Dose: 2.5 mg Albuterol/Ipratropium (Duoneb) 3 ml NEB Q6HRT [facility] Last Admin: 05/16/16 07:08 Dose: 3 ml Aspirin (Aspirin) 81 mg PO DAILY [facility] Last Admin: 05/16/16 08:35 Dose: 81 mg Atorvastatin Calcium (Lipitor) 10 mg PO HS [facility] Last Admin: 05/15/16 21:26 Dose: Not Given Clopidogrel Bisulfate (Plavix) 75 mg PO QDAY [facility] Last Admin: 05/16/16 08:36 Dose: 75 mg Docusate Sodium (Colace) 100 mg PO BID [facility] Last Admin: 05/16/16 08:36 Dose: 100 mg Duloxetine HCl (Cymbalta) 60 mg PO DAILY [facility] Last Admin: 05/16/16 08:39 Dose: 60 mg Ferrous [facility] ([facility] Sulfate) [facility] Last Admin: 05/16/16 08:36 Dose: 325 mg Gabapentin (Neurontin) 100 mg PO TID [facility] Last Admin: 05/16/16 08:35 Dose: 100 mg Gabapentin (Neurontin) 300 mg PO TID [facility] Last Admin: 05/16/16 08:35 Dose: 300 mg Iron Carb/Multivit/Searcy/Folic Acid (Multivitamin W/Minerals) 1 tab PO DAILY [facility] Last Admin: 05/16/16 08:36 Dose: 1 tab Lactulose (Cephulac) 30 gm PO BIDP PRN PRN Reason: Constipation Lorazepam (Ativan) 0.5 mg PO QDAY PRN PRN Reason: ANXIETY/SEDATION Last Admin: 05/16/16 00:34 Dose: 0.5 mg Methylprednisolone Sodium Succinate (Solu-Medrol) 80 mg IV Q6 [facility] Last Admin: 05/16/16 05:32 Dose: 80 mg Naloxone HCl (Narcan) 0.1 mg IV Q2MIN PRN PRN Reason: Opiate Reversal Nitroglycerin (Nitrostat) 0.4 mg SL Q5M PRN PRN Reason: Chest Pain Ondansetron HCl (Zofran) 4 mg IV Q4HP PRN PRN Reason: Nausea And Vomiting Oxycodone/Acetaminophen (Percocet 5-325 Mg) 1 tab PO Q4HP PRN PRN Reason: Pain Last Admin: 05/16/16 10:22 Dose: 1 tab Oxycodone/Acetaminophen (Percocet 10-325mg) 1 tab PO Q6H PRN PRN Reason: Pain Linaclotide [Linzess (] 290 Mcg Cap) 1 dose PO ACB [facility] Last Admin: 05/16/16 07:18 Dose: 1 dose Lubiprostone [ (Amitiza] 24 Mcg Tab) 1 dose PO BID [facility] Last Admin: 05/16/16 08:36 Dose: 1 dose Potassium [facility] ([facility]ur) [facility] Last Admin: 05/16/16 08:35 Dose: 20 meq Prednisone (Prednisone) [facility] Last Admin: 05/16/16 08:35 Dose: 40 mg Senna/Docusate Sodium (Senna Plus Tablet) 1 tab PO HS [facility] Last Admin: 05/15/16 21:27 Dose: Not Given Spironolactone (Aldactone) 25 mg PO DAILY [facility] Last Admin: 05/16/16 08:35 Dose: 25 mg Torsemide (Demadex) 20 mg PO DAILY [facility] Last Admin: 05/16/16 08:35 Dose: 20 mg Vitamin D (Vitamin D3) 1,000 unit PO DAILY [facility] Last Admin: 05/16/16 08:39 Dose: 1,000 unit Medical - PN: A/P - Time Spent With Patient Total time spent is greater than 50% in coordination of care (as documented) at patient's floor/unit and/or counseling patient: - Narrative A/P Narrative: #1. Pulmonary- Acute on chronic respiratory failure hypercapnic, hypoxic.. -This is this patient's third admission for the same problem in a month. she seems to do well while in the hospital,and keeping her bronchodilators and oxygen supply closely monitored. She fails when she returns home, it appears that this is at least partly due to a complicated family situation. he patient' s mental status gets depressed whenever her O2 saturations run too high, and also when she takes too much pain medication. -The patient did not have a very good night, with reading becoming very shallow and ineffective whenever she sleeps, and then she developed hypoxia. blood gas this morning shows her becoming even more hypercarbic. she does not have severe wheezing or respiratory distress, so it does not appear that she is having a severe COPD exacerbation, and she also does not appear to have pneumonia or overt CHF at this time. she had a sleep study less than 1 year ago that says she had no respiratory events, which is hard to believe, given her long-standing respiratory issues.I discussed her case at length this morning with her primary care physician, Dr. Jenkins, and we agreed that it seems more likely that this report was not on this patient. the mild leukocytosis that she presented with yesterday has resolved as of this morning. at this time, I think it is reasonable to put the patient back on her BiPAP, and see how much she improves. We may want to consider doing a brain scan to be sure there is not some obvious anatomical reason for respiratory failure. She does not seem oversedated with pain medications at this time.we will continue with bronchodilators and oral steroids to help control any COPD symptoms. if she does not improve markedly with BiPAP, then I will try contacting pulmonary in [place] or [facility], to discuss further options for workup and treatment. disposition:Unfortunately her does not seem to fully understand how to manage these things, and has been unable to help her appropriately manage her medications. They have both consistently refused home health visits and other help at home. She is also refused rehabilitation and alternate living situations in the past. At this time it is clear that she is in danger of respiratory failure every time she returns home. Unfortunately, she does not generally seem willing to accept help. -social work has met with the ,and he seems to believe that his is dying and should be placed on hospice care, and even mentioned the possibility of assisted suicide. The patient herself is a bit too groggy to take her answers at face value, but has indicated to me that she is not ready to give up , and that she does want to do whatever would help with her breathing. -She does have a limited code order, and has stated that she does not want back on the ventilator at any point. However she also denies wanting to seek hospice care, or give up on trying to get better. #2. Cardiac. -congestive heart failure by history, but clinically this appears compensated at this time. She may be a bit on the dry side, volume pan.-History of coronary artery disease. Continue aspirin, Plavix, statin. -given that she looks a little dry, and has electrolyte abnormalities, may hold her metolazone for now. #3. Chronic pain. -continue low-dose when necessary narcotics. also continue with gabapentin. Continue Cymbalta. #4. Noncompliance with medical regimen-Again we have asked social work to continue to work with the family to address this issue. #5. CODE STATUS: Limited code. No ventilation. #6. DVT prophylaxis: Continue Plavix, add SCDs. #7. Fluids and nutrition. -the patient does have hyponatremia, hypochloremia likely due to a combination of side effects of her diuretics and chronic respiratory acidosis with metabolic compensation. both her sodium and her chloride are moderately improved today. She continues to exhibit a metabolic alkalosis, which is likely compensatory. #8. Infectious disease. -leukocytosis has improved, and the patient is not otherwise showing signs of infection. #9. . -Patient did have urinary retention earlier this month, so we will recheck a postvoid residual. #10. Altered mental status. We believe this is due to to acute on chronic respiratory failure with hypercarbia and hypoxia. -The patient also has multiple muscle twitches, which has been seen in her before. It is thought that this is related to her narcotics as well as her hypercarbia. approximately 40 minutes has been spent so far today, reviewing patient's chest results, discussing her with staff, discussing her with her primary care physician, and writing orders. Medical - PN: Qual - Stroke Symptom Onset Unknown: No - VTE Deep Vein Thrombosis/Pulmonary Embolism Present on Admission: No
[2016-05-16] MEDS: ATORVASTATIN 20 MG TABLET PO SCH (19:23)
[2016-05-16] MEDS: SENNOSIDES/DOCUSATE SODIUM 1 TAB TABLET PO SCH (19:23)
[2016-05-17] MEDS: methylPREDNISolone SOD SUCC 125 MG/2 ML VIAL IV SCH ×5 (00:08→23:01)
[2016-05-17] MEDS: IPRATROPIUM/ALBUTEROL 3 ML AMPUL.NEB NEB SCH ×4 (01:17→19:15)
[2016-05-17] MEDS: ACETAMINOPHEN 325 MG TABLET PO PRN ×2 (02:57→08:38)
[2016-05-17 06:35] LABS: Basophils # (Auto) 0 K/mcL (0.0-0.3); Basophils % (Auto) 0 % (0.0-2.0); Eosinophils # (Auto) 0 K/mcL (0.0-0.7); Eosinophils % (Auto) 0.1 % (0.0-7.0); Granulocytes % (Auto) 95.9 % (38.0-78.0); Lymphocytes # (Auto) 0.4 K/mcL (1.5-4.8); Lymphocytes % (Auto) 2.4 % (15.5-49.0); Mean Corpuscular HGB Conc 31.4 g/dL (31.0-36.0); Mean Corpuscular Hemoglobin 29.2 pg (26.0-34.0); Monocytes # (Auto) 0.2 K/mcL (0.1-0.9); Monocytes % (Auto) 1.6 % (1.0-9.0); Platelet Count 340 K/mcL (140-440); Red Cell Distribution Width 14.4 % (11.5-14.5)
[2016-05-17] MEDS: DULoxetine 30 MG CAPSULE PO SCH (08:37)
[2016-05-17] MEDS: VITAMIN D3 1,000 UNIT TABLET PO SCH (08:37)
[2016-05-17] MEDS: GABAPENTIN 100 MG CAPSULE PO SCH ×3 (08:37→20:16)
[2016-05-17] MEDS: LUBIPROSTONE 24 MCG PO SCH ×2 (08:37→20:16)
[2016-05-17] MEDS: TORSEMIDE 10 MG TABLET PO SCH (08:39)
[2016-05-17] MEDS: predniSONE 20 MG TABLET PO SCH (08:39)
[2016-05-17] MEDS: ASPIRIN 81 MG TAB.CHEW PO SCH (08:39)
[2016-05-17] MEDS: DOCUSATE SODIUM 100 MG CAPSULE PO SCH ×2 (08:39→20:25)
[2016-05-17] MEDS: SPIRONOLACTONE 25 MG TABLET PO SCH (08:39)
[2016-05-17] MEDS: CLOPIDOGREL 75 MG TABLET PO SCH (08:39)
[2016-05-17] MEDS: MULTIVIT,THER IRON,CA,FA & MIN 1 TABLET PO SCH (08:40)
[2016-05-17] MEDS: GABAPENTIN 300 MG CAPSULE PO SCH ×3 (08:40→20:16)
[2016-05-17] MEDS: POTASSIUM CHLORIDE 20 MEQ TABLET PO SCH ×2 (08:40→17:26)
[2016-05-17] MEDS: FERROUS SULFATE 325 MG TABLET PO SCH (08:42)
--- NOTE | 2016-05-17 09:22 | XRay Report ---
CLINICAL INFORMATION: Hypoxia TECHNIQUE: AP portable semiupright chest x-ray COMPARISON: Previous examinations dated 05/15/2016, 05/09/2016, 04/24/2016. FINDINGS: Lungs are negative. No parenchymal infiltrate or mass. Heart size and vascularity are normal. No pulmonary congestion or pulmonary edema. Jazmín and mediastinum are negative. There is a probable hiatal hernia. No significant pleural effusion. IMPRESSION: No acute abnormality. No interval change since 05/15/2016. Interpreted and Authenticated by: Zak Deutsch 05/17/16
[2016-05-17] MEDS: oxyCODONE/APAP 5/325MG TABLET PO PRN (10:34)
--- NOTE | 2016-05-17 10:36 | Internal Med Progress Note ---
Medical - PN: Subj Patient information: Note initiated : 05/17/16 at 10:36 am Service Date, if different from initiated Date: [] Patient: Loraine Howard 66 y/o F admitted on 05/16/16 for SOB/Chronic RespiratoryFailure Hypercapnic,Hypoxic. Chief Complaint: [] Interval history: May 15, 2016:History of present illness: Ms. Howard is a 66 year old female with a history of chronic respiratory failure hypoxic, hypercarbic. She has been admitted twice recently with worsening respiratory failure. She was treated for pneumonia and COPD and briefly with BiPAP, and eventually became stable enough to return home. Unfortunately, at home, it appears she overuses her oxygen, and possibly her pain medications, and becomessomewhat obtunded, which then causes her to bring her back to the hospital. she reportedly also had a negative cardiac angiogram fairly recently that did not show coronary disease. today, she presented back to the emergency room via EMS, complaining of difficulty breathing. Her family reports that her O2 saturations have dropped as low as the 60s. she reportedly did have an O2 saturation of 74% this morning , and I believe that was on2 L of oxygen. in the emergency room she was given IV antibiotics oxygen, bronchodilators and IV steroids, and seems to be improving. She is now admitted for further observation and treatment. On interview at this time, she is sitting up in a chair, and is fairly conversant. However she is a bit drifty and seems to have a little bit of trouble keeping her eyes open at times. he states "I guess I wasn't breathing well". She says she understands that sometimes she uses too much oxygen, but says she has been trying not to let her O2 saturations get too high. Her apparently reported to other staff that his son has told him to turn off her oxygen and her saturations Below a certain point,so he does what his son tells him. she says she is also trying to take less pain medication and she understands that can affect her mental status as well. When asked what is going on at home that makes it so that she cannot seem to be compliant with instructions regarding pain meds and oxygen, she repeatedly states that she hat her life is just very stressful because of her children and grandchildren that she has to take care of. unfortunately, she does not appear to be very clearheaded on review of systems. She says yes to every question, including fevers, chills, headaches, coughwith some blood streaks in her phlegm, chest pain, palpitations, shortness of breath. She seems to deny any GI issues, but reports some type of urinary issue which she says is related to a fecal something? She cannot quite complete that thought.she may be trying to describe hemorrhoids. May 16, 2016: Overnight, the nurses note that whenever the patient slept her O2 saturations took dramatic drops. They would improve when she was awakened and stimulated. FiO2 was titrated to keep her sats above 88%. Unfortunately, this morning's blood gas looks worse in terms of her CO2 retention. serum bicarbonate is also continuing to rise. she continues to be groggy and sleepy on interview today. She states she is feeling better, but often falls asleep mid sentence. I briefly discussed with her using BiPAP at night and as needed during the day. She believes she was previously prescribed BiPAP for home use several years ago, but cannot recall the doctors involved or how long ago it was. She believes she had a sleep study within the last few years as well.Otherwise, she denies subjective fever or chills. She still has a cough and still feels short f breath. She otherwise denies chest pain or palpitations, abdominal pain, nausea or vomiting or diarrhea, or dysuria. May 17, 2016: he patient has continued to struggle with her breathing and her mental alertness since yesterday. She has been wearing BiPAP most of the time, but does take it off her meals. She states she feels a little clearer headed. Unfortunately her blood gas this morning, while showing improved PCO2, also shows that her PaO2is dropping. Follow-up chest x-ray does not show signs of pneumonia or CHF. The patient otherwise denies subjective fever or chills. She did awaken this morning saying that she had some tightness across her anterior chest. EKG and troponin look normal. this eventually resolved. She otherwise denies subjective fever or chills, but does still have a mostly nonproductive cough. She denies abdominal pain, nausea or vomiting or diarrhea , or dysuria. - Constitutional Vitals: Vital Signs Temp Pulse Resp BP Pulse Ox 97.3 F L 97 H 18 148/83 92 05/17/16 07:02 05/17/16 07:03 05/17/16 07:03 05/17/16 07:02 05/17/16 07:02 Period Temp Pulse Resp BP Sys/Cano Pulse Ox Last 24 Hr 97.2 F-98.1 F 87-116 13-22 124-151/58-84 86-93 Intake and Output 05/16/16 05/17/16 05/17/16 21:59 05:59 13:59 Intake Total 1175 / 1175 600 / 600 Output Total 1000 / 1000 400 / 400 Balance 175 / 175 600 / 600 -400 / -400 Weight 148 lb Intake & Output: Intake & Output 05/16/16 05/17/16 05/17/16 21:59 05:59 13:59 Intake Total 1175 / 1175 600 / 600 Output Total 1000 / 1000 400 / 400 Balance 175 / 175 600 / 600 -400 / -400 Weight 148 lb Intake: Oral 1175 / 1175 600 / 600 Output: Void Amount 1000 / 1000 Urine/Stool Mix 400 / 400 Other: Meal snack Percent of Meal Consumed 100% Exam: on exam, she is somewhat somnolent. Her answers are generally appropriate to questions, but she has great difficulty remembering things.he did meet with her today, in the presence of her .we discussedher options for treatment several times. Neck is supple without obvious JVD. Cardiac exam shows regular rate and rhythm. Lungs:have decreased breath sounds throughout, with occasional scattered soft expiratory wheezes. There is no accessory muscle use. she currently has the BiPAP off, and is just having an Oxymizer mask on, presumably for breakfast. Abdomen: Is soft and nontender. Extremities: Show no significant edema. neurologic exam:the patient continues to he drifty and forgetful., most likely due to hypercarbia. Motor exam is grossly nonfocal. Medical - PN: Obj Da - Labs CBC & Chem 7: 05/17/16 04:14 05/16/16 04:05 Labs: Abnormal Lab Results 05/17/16 05/17/16 07:19 04:14 WBC 15.4 H Gran % 95.9 H Lymph % (Auto) 2.4 L Gran # 14.8 H Lymph # 0.4 L D-Dimer 0.58 H May 17: Chest x-ray:No parenchymal infiltrates or masses are noted no acute disease. EKG showed normal sinus rhythm with occasionalPACs, left axis deviation, but no acute ST-T changes. aBG on BiPAPat settings of 10/5, FiO2 of 28%: Shows pH of 7.5 PCO2 of 79, PO2 of 50, bicarbonate of 60 O2 saturation of 89% 05/16: her previous records fromOctober 06, 2015, sleep study: The patient had a sleep study, which actually showed no respiratory events Her room air saturation on room airwhile awake was 97%, and never dropped below 88% for the entire study, so this was read as a normal sleep study. ABG: On 1.5 L Oxymizer mask: pH 7.36, PCO2 96, PO2 63, bicarbonate 54 , saturation 87-91% Induced sputum shows moderate squamous epithelial cells, with moderate gram- positive cocci and gram-negative bacilli blood cultures are negative so far. May 15: BNP is elevated at 1720. ABG: PH 7.35, PCO2 84, PaO2 68, bicarbonate 46, O2 saturation 92%, on 3 L of oxygen EKG shows normal sinus rhythm at a rate of about 100 with left axis deviation, and no obvious acute ischemic changes. chest x-ray:Shows no acute disease, and no change from May 09, 2016. Meds: Medications Acetaminophen (Tylenol) 650 mg PO Q6HP PRN PRN Reason: PAIN/FEVER > 101 Last Admin: 05/17/16 08:38 Dose: 650 mg Albuterol Sulfate (Ventolin) 2.5 mg NEB Q4HRT PRN PRN Reason: Shortness Of Breath Or Wheezing Last Admin: 05/15/16 23:56 Dose: 2.5 mg Albuterol/Ipratropium (Duoneb) 3 ml NEB Q6HRT [facility] Last Admin: 05/17/16 06:58 Dose: 3 ml Aspirin (Aspirin) 81 mg PO DAILY [facility] Last Admin: 05/17/16 08:39 Dose: 81 mg Atorvastatin Calcium (Lipitor) 10 mg PO HS [facility] Last Admin: 05/16/16 19:23 Dose: 10 mg Clopidogrel Bisulfate (Plavix) 75 mg PO QDAY [facility] Last Admin: 05/17/16 08:39 Dose: 75 mg Docusate Sodium (Colace) 100 mg PO BID [facility] Last Admin: 05/17/16 08:39 Dose: 100 mg Duloxetine HCl (Cymbalta) 60 mg PO DAILY [facility] Last Admin: 05/17/16 08:37 Dose: 60 mg Ferrous Sulfate (Ferrous Sulfate) 325 mg PO [facility] Last Admin: 05/17/16 08:42 Dose: 325 mg Gabapentin (Neurontin) 100 mg PO TID [facility] Last Admin: 05/17/16 08:37 Dose: 100 mg Gabapentin (Neurontin) 300 mg PO TID [facility] Last Admin: 05/17/16 08:40 Dose: 300 mg Iron Carb/Multivit/Mckenzie/Folic Acid (Multivitamin W/Minerals) 1 tab PO DAILY [facility] Last Admin: 05/17/16 08:40 Dose: 1 tab Lactulose (Cephulac) 30 gm PO BIDP PRN PRN Reason: Constipation Lorazepam (Ativan) 0.5 mg PO QDAY PRN PRN Reason: ANXIETY/SEDATION Last Admin: 05/16/16 00:34 Dose: 0.5 mg Methylprednisolone Sodium Succinate (Solu-Medrol) 80 mg IV Q6 [facility] Last Admin: 05/17/16 05:46 Dose: 80 mg Naloxone HCl (Narcan) 0.1 mg IV Q2MIN PRN PRN Reason: Opiate Reversal Nitroglycerin (Nitrostat) 0.4 mg SL Q5M PRN PRN Reason: Chest Pain Last Admin: 05/17/16 07:17 Dose: 0.4 mg Ondansetron HCl (Zofran) 4 mg IV Q4HP PRN PRN Reason: Nausea And Vomiting Oxycodone/Acetaminophen (Percocet 5-325 Mg) 1 tab PO Q4HP PRN PRN Reason: Pain Last Admin: 05/17/16 10:34 Dose: 1 tab Oxycodone/Acetaminophen (Percocet 10-325mg) 1 tab PO Q6H PRN PRN Reason: Pain Linaclotide [Linzess (] 290 Mcg Cap) 1 dose PO ACB [facility] Last Admin: 05/17/16 08:37 Dose: 1 dose Lubiprostone [ (Amitiza] 24 Mcg Tab) 1 dose PO BID [facility] Last Admin: 05/17/16 08:37 Dose: 1 dose [facility] ([facility]) [facility] Last Admin: 05/17/16 08:40 Dose: 20 meq Prednisone (Prednisone) 40 mg PO [facility] Last Admin: 05/17/16 08:39 Dose: 40 mg Senna/Docusate Sodium (Senna Plus Tablet) 1 tab PO [facility] Last Admin: 05/16/16 19:23 Dose: Not Given Spironolactone (Aldactone) 25 mg PO DAILY [facility] Last Admin: 05/17/16 08:39 Dose: 25 mg Torsemide (Demadex) 20 mg PO DAILY [facility] Last Admin: 05/17/16 08:39 Dose: 20 mg Vitamin D (Vitamin D3) 1,000 unit PO DAILY [facility] Last Admin: 05/17/16 08:37 Dose: 1,000 unit Medical - PN: A/P - Time Spent With Patient Total time spent is greater than 50% in coordination of care (as documented) at patient's floor/unit and/or counseling patient: - Narrative A/P Narrative: #1. Pulmonary- Acute on chronic respiratory failure hypercapnic, hypoxic.. -This is this patient's third admission for the same problem in a month. she seems to do well while in the hospital,and keeping her bronchodilators and oxygen supply closely monitored. She fails when she returns home, it appears that this is at least partly due to a complicated family situation. he patient' s mental status gets depressed whenever her O2 saturations run too high, and also when she takes too much pain medication. -The patient's PCO2 does improve on the BiPAP, but PO2 levels remain quite low. I did call and discuss her case with the riding instructor from [place] today , Dr. Joshi We reviewed her history and her recent test results. He does not feelthat there would be any real advantage to transferring her to [place] for further pulmonary workup. He says it sounds like she just has end-stage lung disease, and suggested she continue with BiPAP as long as it seems to offer some benefit. -Because of the patient's complicated home situation, none of the staff here feel that they could manage BiPAP at home. I reviewedeverything again with the patient and her today We discussed the pulmonary said the only other aggressive thing they could offer would be to put her on a ventilator, and eventually do a permanent trach with vent support, which they are not interested in. The other options would be to go to rehabilitation with BiPAP support, and hope that she has some modest improvement, to the point where she could eventually return home with BiPAP after extensive teaching. A third option would be to just go home andconnect with hospice, and agreed to no more aggressive care. the patient believes that she wants to do, is to go home first for a day or 2, to try to get her affairs in order, and then be admitted to the detention for ongoing BiPAP and education and rehabilitation, to see if she can improve at all. She is not willing to live in a facility long-term, but is willing to have a short-term rehabilitation stay, she thinks, although she still says she wants to think about it some more. -her white blood cell count did bump a bit today, for unclear reasons. There is not currently any sign of pneumonia or congestive heart failure.her I's and O 's are a bit on the negative side for her stay. BUN/creatinine continued to make her look a bit on the dry side. - She does not seem oversedated with pain medications at this time.we will continue with bronchodilators and oral steroids to help control any COPD symptoms. -She does have a limited code order, and has stated that she does not want back on the ventilator at any point. However she also denies wanting to seek hospice care, or give up on trying to get better. #2. Cardiac. -congestive heart failure by history, but clinically this appears compensated at this time. She may be a bit on the dry side, volume pan.-History of coronary artery disease. Continue aspirin, Plavix, statin. -given that she looks a little dry, and has electrolyte abnormalities, may hold her metolazone for now. #3. Chronic pain. -continue low-dose when necessary narcotics. also continue with gabapentin. Continue Cymbalta. #4. Noncompliance with medical regimen-Again we have asked social work to continue to work with the family to address this issue. #5. CODE STATUS: Limited code. No ventilation. #6. DVT prophylaxis: Continue Plavix, add SCDs. #7. Fluids and nutrition. -the patient does have hyponatremia, hypochloremia likely due to a combination of side effects of her diuretics and chronic respiratory acidosis with metabolic compensation. both her sodium and her chloride are moderately improved today. She continues to exhibit a metabolic alkalosis, which is likely compensatory. I expect to her apparent respiratory alkalosis today, is due to her ongoing high levels of serum bicarbonate, and this should improve over time. #8. Infectious disease. -leukocytosis has improved, and the patient is not otherwise showing signs of infection. #9. . -Patient did have urinary retention earlier this month, so we will recheck a postvoid residual. #10. Altered mental status. We believe this is due to to acute on chronic respiratory failure with hypercarbia and hypoxia. -The patient also has multiple muscle twitches, which has been seen in her before. It is thought that this is related to her narcotics as well as her hypercarbia. s0 far today, this is his taken approximately 60 minutes, to review test results , interview and examine the patient, and have extensive conversations with she and her , as well as with a specialist and staff, about her situation. Medical - PN: Qual - Stroke Symptom Onset Unknown: No - VTE Deep Vein Thrombosis/Pulmonary Embolism Present on Admission: No
[2016-05-17 18:34] LABS: Appearance,Urine CLEAR; Bilirubin,Urine NEG (NEG); Color,Urine STRAW; Glucose,Urine (UA) NEGATIVE (NEG); Leukocyte Esterase,Urine NEG /uL (NEG); Nitrate,Urine NEG (NEG); Protein,Urine NEG (NEG); Specific Gravity,Urine 1.008 (1.000-1.035); Urine Blood NEG mg/dL (<0.03); Urobilinogen,Urine NEG (NEG)
[2016-05-17] MEDS: ATORVASTATIN 20 MG TABLET PO SCH (20:16)
[2016-05-17] MEDS: SENNOSIDES/DOCUSATE SODIUM 1 TAB TABLET PO SCH (20:25)
[2016-05-18] MEDS: IPRATROPIUM/ALBUTEROL 3 ML AMPUL.NEB NEB SCH ×4 (01:21→19:04)
[2016-05-18] MEDS: methylPREDNISolone SOD SUCC 125 MG/2 ML VIAL IV SCH ×3 (05:05→17:36)
[2016-05-18] MEDS: predniSONE 20 MG TABLET PO SCH (07:30)
[2016-05-18] MEDS: POTASSIUM CHLORIDE 20 MEQ TABLET PO SCH ×2 (07:30→17:36)
[2016-05-18] MEDS: FERROUS SULFATE 325 MG TABLET PO SCH (07:31)
[2016-05-18] MEDS: PIPERACILLIN SODIUM/TAZOBACTAM 3.375 GM in DEXTROSE 5% IN WATER 50 ML IV SCH ×3 (08:38→21:45)
[2016-05-18] MEDS: 0.9 % SODIUM CHLORIDE 10 ML SYRINGE IV SCH ×6 (08:40→22:47)
[2016-05-18] MEDS: SPIRONOLACTONE 25 MG TABLET PO SCH (09:33)
[2016-05-18] MEDS: GABAPENTIN 300 MG CAPSULE PO SCH ×3 (09:34→21:42)
[2016-05-18] MEDS: GABAPENTIN 100 MG CAPSULE PO SCH ×3 (09:34→21:42)
[2016-05-18] MEDS: CLOPIDOGREL 75 MG TABLET PO SCH (09:34)
[2016-05-18] MEDS: ASPIRIN 81 MG TAB.CHEW PO SCH (09:34)
[2016-05-18] MEDS: DOCUSATE SODIUM 100 MG CAPSULE PO SCH ×2 (09:35→21:42)
[2016-05-18] MEDS: TORSEMIDE 10 MG TABLET PO SCH (09:35)
[2016-05-18] MEDS: LUBIPROSTONE 24 MCG PO SCH ×2 (09:35→21:42)
[2016-05-18] MEDS: MULTIVIT,THER IRON,CA,FA & MIN 1 TABLET PO SCH (09:35)
[2016-05-18] MEDS: VITAMIN D3 1,000 UNIT TABLET PO SCH (09:40)
[2016-05-18] MEDS: DULoxetine 30 MG CAPSULE PO SCH (09:40)
--- NOTE | 2016-05-18 11:05 | Internal Med Progress Note ---
Medical - PN: Subj Patient information: Note initiated : 05/18/16 at 11:05 am Service Date, if different from initiated Date: [] Patient: Loraine Howard 66 y/o F admitted on 05/16/16 for SOB/Chronic RespiratoryFailure Hypercapnic,Hypoxic. Chief Complaint: [] Interval history: May 15, 2016:History of present illness: Ms. Howard is a 66 year old female with a history of chronic respiratory failure hypoxic, hypercarbic. She has been admitted twice recently with worsening respiratory failure. She was treated for pneumonia and COPD and briefly with BiPAP, and eventually became stable enough to return home. Unfortunately, at home, it appears she overuses her oxygen, and possibly her pain medications, and becomes somewhat obtunded, which then causes her to bring her back to the hospital. she reportedly also had a negative cardiac angiogram fairly recently that did not show coronary disease. today, she presented back to the emergency room via EMS, complaining of difficulty breathing. Her family reports that her O2 saturations have dropped as low as the 60s. she reportedly did have an O2 saturation of 74% this morning , and I believe that was on2 L of oxygen. in the emergency room she was given IV antibiotics oxygen, bronchodilators and IV steroids, and seems to be improving. She is now admitted for further observation and treatment. On interview at this time, she is sitting up in a chair, and is fairly conversant. However she is a bit drifty and seems to have a little bit of trouble keeping her eyes open at times. he states "I guess I wasn't breathing well". She says she understands that sometimes she uses too much oxygen, but says she has been trying not to let her O2 saturations get too high. Her apparently reported to other staff that his son has told him to turn off her oxygen and her saturations Below a certain point,so he does what his son tells him. she says she is also trying to take less pain medication and she understands that can affect her mental status as well. When asked what is going on at home that makes it so that she cannot seem to be compliant with instructions regarding pain meds and oxygen, she repeatedly states that she hat her life is just very stressful because of her children and grandchildren that she has to take care of. unfortunately, she does not appear to be very clearheaded on review of systems. She says yes to every question, including fevers, chills, headaches, cough with some blood streaks in her phlegm, chest pain, palpitations, shortness of breath. She seems to deny any GI issues, but reports some type of urinary issue which she says is related to a fecal something? She cannot quite complete that thought.she may be trying to describe hemorrhoids. May 16, 2016: Overnight, the nurses note that whenever the patient slept her O2 saturations took dramatic drops. They would improve when she was awakened and stimulated. FiO2 was titrated to keep her sats above 88%. Unfortunately, this morning's blood gas looks worse in terms of her CO2 retention. serum bicarbonate is also continuing to rise. she continues to be groggy and sleepy on interview today. She states she is feeling better, but often falls asleep mid sentence. I briefly discussed with her using BiPAP at night and as needed during the day. She believes she was previously prescribed BiPAP for home use several years ago, but cannot recall the doctors involved or how long ago it was. She believes she had a sleep study within the last few years as well.Otherwise, she denies subjective fever or chills. She still has a cough and still feels short f breath. She otherwise denies chest pain or palpitations, abdominal pain, nausea or vomiting or diarrhea, or dysuria. May 17, 2016: he patient has continued to struggle with her breathing and her mental alertness since yesterday. She has been wearing BiPAP most of the time, but does take it off her meals. She states she feels a little clearer headed. Unfortunately her blood gas this morning, while showing improved PCO2, also shows that her PaO2is dropping. Follow-up chest x-ray does not show signs of pneumonia or CHF. The patient otherwise denies subjective fever or chills. She did awaken this morning saying that she had some tightness across her anterior chest. EKG and troponin look normal. this eventually resolved. She otherwise denies subjective fever or chills, but does still have a mostly nonproductive cough. She denies abdominal pain, nausea or vomiting or diarrhea , or dysuria. May 18, 2016: he patient has been wearing the BiPAP almost continuously, removing it mainly only for meals yesterday. She seems to be tolerating it reasonably well. Social work and I had extensive discussions with the patient and her family This morning she says after thinking about it, she thinks she will agree to go directly from the hospital to the skilled nursing, for continued BiPAP support and teaching for how they might be able to use BiPAP and oxygen appropriately at home. she was off the BiPAP for a couple of hours this morning, and on an oxygen mask. Unfortunately her blood gas not very good on that. She was placed back on BiPAP. Her white blood cell count also continues to climb, for unclear reasons. She does have a positive sputum culture, but has not had apparent infiltrates on her chest x-ray. otherwise, she thinks she is feeling better overall. she denies fever or chills. She continues to have a fairly congested cough and shortness of breath. She reports that she always has chest pain, and is very vague on its description. She denies abdominal pain, nausea or vomiting or diarrhea, dysuria. - Constitutional Vitals: Vital Signs Temp Pulse Resp BP Pulse Ox 96.7 F L 703 H 19 153/79 91 05/18/16 07:39 05/18/16 10:48 05/18/16 10:48 05/18/16 07:39 05/18/16 10:48 Period Temp Pulse Resp BP Sys/Cano Pulse Ox Last 24 Hr 96.7 F-99.7 F 100-703 11-21 130-165/60-96 88-92 Intake and Output 05/17/16 05/18/16 05/18/16 21:59 05:59 13:59 Intake Total 420 / 420 150 / 150 190 / 190 Output Total 1600 / 1600 425 / 425 300 / 300 Balance -1180 / -1180 -275 / -275 -110 / -110 Weight 147 lb 14.4 oz Intake & Output: Intake & Output 05/17/16 05/18/16 05/18/16 21:59 05:59 13:59 Intake Total 420 / 420 150 / 150 190 / 190 Output Total 1600 / 1600 425 / 425 300 / 300 Balance -1180 / -1180 -275 / -275 -110 / -110 Weight 147 lb 14.4 oz Intake: IV 50 / 50 Dextrose 5% in Water 50 50 / 50 ml @ 100 mls/hr IV Q8 SARI with Zosyn 3.375 gm Rx#: [id number] Oral 420 / 420 150 / 150 140 / 140 Output: Void Amount 1600 / 1600 425 / 425 300 / 300 Other: Meal Dinner Breakfast Percent of Meal Consumed 100% 25% Feeding Ability Independent # Bowel Movements 1 1 Exam: on exam, she is a bit sleepy, but is answering questions appropriately. Neck is supple without obvious JVD. Cardiac examhows regular rate and rhythm. Lungs: Show fairly diffuse wheezing throughout. No definite rales are heard. Abdomen: Is soft and nontender. Extremities: Show minimal edema. Neurologic exam: Patient continues to be quite sleepy at times, and at other times is awake and able to answer questions appropriately. Her motor exam is grossly nonfocal. Medical - PN: Obj Da - Labs CBC & Chem 7: 05/17/16 04:14 05/16/16 04:05 Labs: Abnormal Lab Results 05/17/16 05/17/16 07:19 04:14 WBC 15.4 H Gran % 95.9 H Lymph % (Auto) 2.4 L Gran # 14.8 H Lymph # 0.4 L D-Dimer 0.58 H May 18: Sputum culture is growing pseudomonas aeruginosa,sensitive to amikacin, aztreonam, cefepime, ciprofloxacin, Zosyn, Levaquin, and intermediate to gentamicin. blood cultures are negative so far. ABG on a 4 L Oxymizer mask's morning, shows pH of 7.39, PCO2 105, PO2 of 84, bicarbonate May 17: BNP is elevated at 1720. MRSA screen was negative. urinalysis was essentially normal. ABG: PH 7.35, PCO2 84, PaO2 68, bicarbonate 46, O2 saturation 92%, on 3 L of oxygen troponin was normal at less than 0.01 yesterday. EKG shows normal sinus rhythm at a rate of about 100 with left axis deviation, and no obvious acute ischemic changes. chest x-ray:Shows no acute disease, and no change from May 09, 2016. Meds: Medications Acetaminophen (Tylenol) 650 mg PO Q6HP PRN PRN Reason: PAIN/FEVER > 101 Last Admin: 05/17/16 08:38 Dose: 650 mg Albuterol Sulfate (Ventolin) 2.5 mg NEB Q4HRT PRN PRN Reason: Shortness Of Breath Or Wheezing Last Admin: 05/15/16 23:56 Dose: 2.5 mg Albuterol/Ipratropium (Duoneb) 3 ml NEB Q6HRT [facility] Last Admin: 05/18/16 07:37 Dose: 3 ml Aspirin (Aspirin) 81 mg PO DAILY [facility] Last Admin: 05/18/16 09:34 Dose: 81 mg Atorvastatin Calcium (Lipitor) 10 mg PO HS [facility] Last Admin: 05/17/16 20:16 Dose: 10 mg Clopidogrel Bisulfate (Plavix) 75 mg PO QDAY [facility] Last Admin: 05/18/16 09:34 Dose: 75 mg Docusate Sodium (Colace) 100 mg PO BID [facility] Last Admin: 05/18/16 09:35 Dose: Not Given Duloxetine HCl (Cymbalta) 60 mg PO DAILY [facility] Last Admin: 05/18/16 09:40 Dose: 60 mg Ferrous Sulf[facility] ([facility]ous Sulfate) [facility] Last Admin: 05/18/16 07:31 Dose: 325 mg Gabapentin (Neurontin) 100 mg PO TID [facility] Last Admin: 05/18/16 09:34 Dose: 100 mg Gabapentin (Neurontin) 300 mg PO TID [facility] Last Admin: 05/18/16 09:34 Dose: 300 mg Piperacillin Sod/Tazobactam (Sod 3.375 gm/ Dextrose) 50 mls @ 100 mls/hr IV Q8 [facility] Last Infusion: 05/18/16 09:13 Dose: Infused Iron Carb/Multivit/Liebenthal/Folic Acid (Multivitamin W/Minerals) 1 tab PO DAILY [facility] Last Admin: 05/18/16 09:35 Dose: 1 tab Lactulose (Cephulac) 30 gm PO BIDP PRN PRN Reason: Constipation Lorazepam (Ativan) 0.5 mg PO QDAY PRN PRN Reason: ANXIETY/SEDATION Last Admin: 05/16/16 00:34 Dose: 0.5 mg Methylprednisolone Sodium Succinate (Solu-Medrol) 80 mg IV Q6 [facility] Last Admin: 05/18/16 05:05 Dose: 80 mg Naloxone HCl (Narcan) 0.1 mg IV Q2MIN PRN PRN Reason: Opiate Reversal Nitroglycerin (Nitrostat) 0.4 mg SL Q5M PRN PRN Reason: Chest Pain Last Admin: 05/17/16 07:17 Dose: 0.4 mg Ondansetron HCl (Zofran) 4 mg IV Q4HP PRN PRN Reason: Nausea And Vomiting Last Admin: 05/18/16 04:57 Dose: 4 mg Oxycodone/Acetaminophen (Percocet 5-325 Mg) 1 tab PO Q4HP PRN PRN Reason: Pain Last Admin: 05/17/16 10:34 Dose: 1 tab Oxycodone/Acetaminophen (Percocet 10-325mg) 1 tab PO Q6H PRN PRN Reason: Pain Last Admin: 05/18/16 07:55 Dose: 1 tab Linaclotide [Linzess (] 290 Mcg Cap) 1 dose PO ACB [facility] Last Admin: 05/18/16 07:31 Dose: 1 dose Lubiprostone [ (Amitiza] 24 Mcg Tab) 1 dose PO BID [facility] Last Admin: 05/18/16 09:35 Dose: 1 dose Potassium Chlor[facility] (Kdur) [facility] Last Admin: 05/18/16 07:30 Dose: 20 meq Prednisone (Prednisone) 40 [facility] Last Admin: 05/18/16 07:30 Dose: 40 mg Senna/Docusate Sodium (Senna Plus Tablet) 1 tab PO HS [facility] Last Admin: 05/17/16 20:25 Dose: Not Given Sodium Chloride (Saline Flush) 10 ml IV Q8 [facility] Last Admin: 05/18/16 09:14 Dose: 10 ml Spironolactone (Aldactone) 25 mg PO DAILY [facility] Last Admin: 05/18/16 09:33 Dose: 25 mg Torsemide (Demadex) 20 mg PO DAILY [facility] Last Admin: 05/18/16 09:35 Dose: 20 mg Vitamin D (Vitamin D3) 1,000 unit PO DAILY [facility] Last Admin: 05/18/16 09:40 Dose: 1,000 unit Medical - PN: A/P - Time Spent With Patient Total time spent is greater than 50% in coordination of care (as documented) at patient's floor/unit and/or counseling patient: (1) Chronic pain disorder Status: Chronic Current Visit: Yes (2) Hyponatremia Status: Acute Current Visit: Yes (3) Cor pulmonale, acute Status: Chronic Current Visit: Yes (4) CHF (congestive heart failure) Status: Chronic Current Visit: No (5) Respiratory failure with hypoxia and hypercapnia Status: Acute Current Visit: No (6) Neuropathy Status: Chronic Current Visit: No - Narrative A/P Narrative: #1. Pulmonary- Acute on chronic respiratory failure hypercapnic, hypoxic.. -This is this patient's third admission for the same problem in a month. she seems to do well while in the hospital,and keeping her bronchodilators and oxygen supply closely monitored. She fails when she returns home, it appears that this is at least partly due to a complicated family situation. he patient' s mental status gets depressed whenever her O2 saturations run too high, and also when she takes too much pain medication. -The patient's PCO2 does improve on the BiPAP, but PO2 levels remain quite low. I did call and discuss her case with the steel welder from [place] , Dr. Joshi . We reviewed her history and her recent test results. He does not feel that there would be any real advantage to transferring her to [place] for further pulmonary workup. He says it sounds like she just has end-stage lung disease, and suggested she continue with BiPAP as long as it seems to offer some benefit. -these things have been reviewed extensively with the patient and her . Today, I felt that she is leaning towards being discharged to rehabilitation, where they could continue her BiPAP and continue educating she and her about BiPAP. -he patient is not interested in long-term ventilator management. (The options would be to go to rehabilitation with BiPAP support, and hope that she has some modest improvement, to the point where she could eventually return home with BiPAP after extensive teaching. A third option would be to just go home and connect with hospice, and agreed to no more aggressive care. 0 -her white blood cell count did bump a bit , for unclear reasons. There is not currently any sign of pneumonia or congestive heart failure.her I's and O's are a bit on the negative side for her stay. BUN/creatinine continued to make her look a bit on the dry side. - She does not seem oversedated with pain medications at this time.we will continue with bronchodilators and oral steroids to help control any COPD symptoms. -She does have a limited code order, and has stated that she does not want back on the ventilator at any point. However she also denies wanting to seek hospice care, or give up on trying to get better. #2. Cardiac. -congestive heart failure by history, but clinically this appears compensated at this time. She may be a bit on the dry side, volume pan.-History of coronary artery disease. Continue aspirin, Plavix, statin. -given that she looks a little dry, and has electrolyte abnormalities, may hold her metolazone for now. #3. Chronic pain. -continue low-dose when necessary narcotics. also continue with gabapentin. Continue Cymbalta. #4. Noncompliance with medical regimen-Again we have asked social work to continue to work with the family to address this issue. #5. CODE STATUS: Limited code. No ventilation. #6. DVT prophylaxis: Continue Plavix, add SCDs. #7. Fluids and nutrition. -the patient does have hyponatremia, hypochloremia likely due to a combination of side effects of her diuretics and chronic respiratory acidosis with metabolic compensation. both her sodium and her chloride are moderately improved today. She continues to exhibit a metabolic alkalosis, which is likely compensatory. I expect to her apparent respiratory alkalosis today, is due to her ongoing high levels of serum bicarbonate, and this should improve over time. #8. Infectious disease. -leukocytosis increased again, and patient does have a positive sputum culture, and her lung status is not quite as good as I would have expected. i have elected to go ahead and start her on IV Zosyn, to cover for possible brewing Pseudomonas pneumonia. Hopefully, she will makeprogress in her overall status by tomorrow, and we could consider discharging her to [facility] with current meds and BiPAP. #9. . -Patient did have urinary retention earlier this month, so postvoid residual was checked yesterday, and was 200 mL. The patient otherwise seems to urinate well. #10. Altered mental status. We believe this is due to to acute on chronic respiratory failure with hypercarbia and hypoxia. -The patient also has multiple muscle twitches, which has been seen in her before. It is thought that this is related to her narcotics as well as her hypercarbia. so far today, this is his taken approximately 30 minutes, to review test results , review her case with nursing staff and respiratory therapy, and write orders. Medical - PN: Qual - Stroke Symptom Onset Unknown: No - VTE Deep Vein Thrombosis/Pulmonary Embolism Present on Admission: No
[2016-05-18] MEDS: ATORVASTATIN 20 MG TABLET PO SCH (21:40)
[2016-05-18] MEDS: SENNOSIDES/DOCUSATE SODIUM 1 TAB TABLET PO SCH (21:42)
[2016-05-19] MEDS: methylPREDNISolone SOD SUCC 125 MG/2 ML VIAL IV SCH ×2 (00:44→05:47)
[2016-05-19] MEDS: IPRATROPIUM/ALBUTEROL 3 ML AMPUL.NEB NEB SCH ×3 (00:45→12:50)
[2016-05-19] MEDS: 0.9 % SODIUM CHLORIDE 10 ML SYRINGE IV SCH (05:47)
[2016-05-19] MEDS: PIPERACILLIN SODIUM/TAZOBACTAM 3.375 GM in DEXTROSE 5% IN WATER 50 ML IV SCH (05:47)
[2016-05-19 07:14] LABS: Basophils # (Auto) 0 K/mcL (0.0-0.3); Basophils % (Auto) 0 % (0.0-2.0); Eosinophils # (Auto) 0 K/mcL (0.0-0.7); Eosinophils % (Auto) 0.1 % (0.0-7.0); Granulocytes % (Auto) 94.6 % (38.0-78.0); Lymphocytes # (Auto) 0.4 K/mcL (1.5-4.8); Lymphocytes % (Auto) 3.2 % (15.5-49.0); Mean Corpuscular HGB Conc 31.4 g/dL (31.0-36.0); Mean Corpuscular Hemoglobin 29.2 pg (26.0-34.0); Monocytes # (Auto) 0.3 K/mcL (0.1-0.9); Monocytes % (Auto) 2.1 % (1.0-9.0); Platelet Count 370 K/mcL (140-440); RBC 4.72 M/mcL (4.00-5.20); Red Cell Distribution Width 14.1 % (11.5-14.5)
[2016-05-19] MEDS: FERROUS SULFATE 325 MG TABLET PO SCH (08:24)
[2016-05-19] MEDS: SPIRONOLACTONE 25 MG TABLET PO SCH (08:25)
[2016-05-19] MEDS: ASPIRIN 81 MG TAB.CHEW PO SCH (08:25)
[2016-05-19] MEDS: POTASSIUM CHLORIDE 20 MEQ TABLET PO SCH ×2 (08:25→09:11)
[2016-05-19] MEDS: DOCUSATE SODIUM 100 MG CAPSULE PO SCH (08:25)
[2016-05-19] MEDS: predniSONE 20 MG TABLET PO SCH (08:25)
[2016-05-19] MEDS: CLOPIDOGREL 75 MG TABLET PO SCH (08:26)
[2016-05-19] MEDS: VITAMIN D3 1,000 UNIT TABLET PO SCH (08:26)
[2016-05-19] MEDS: TORSEMIDE 10 MG TABLET PO SCH (08:26)
[2016-05-19] MEDS: MULTIVIT,THER IRON,CA,FA & MIN 1 TABLET PO SCH ×2 (08:26→09:13)
[2016-05-19] MEDS: GABAPENTIN 300 MG CAPSULE PO SCH (08:26)
[2016-05-19] MEDS: GABAPENTIN 100 MG CAPSULE PO SCH (08:26)
[2016-05-19] MEDS: DULoxetine 30 MG CAPSULE PO SCH (08:26)
[2016-05-19] MEDS: LUBIPROSTONE 24 MCG PO SCH (08:29)
[2016-05-19 08:30] LABS: ALT/SGPT 12 U/l (0-40); Albumin 4.4 gm/dL (3.2-5.2); Alkaline Phosphatase 67 U/L (39-117); Blood Urea Nitrogen 29 mg/dl (8-23)
--- NOTE | 2016-05-19 11:31 | Discharge Summary ---
Medical - DS: Prov Patient information: Note initiated : 05/19/16 at 11:31 am Service Date, if different from initiated Date: [] Patient: Loraine Howard 66 y/o F admitted on 05/16/16 for SOB/Chronic RespiratoryFailure Hypercapnic,Hypoxic. Chief Complaint: [] Date of admission: 05/16/16 10:42 Discharge date: 05/19/16 Primary care physician: [Dr. Kurt Jenkins, [id number]] Admitting clinician: Adri Land Attending physician on discharge: Adri Land Medical - DS: Meds - Discharge Medications Prescriptions: Ondansetron HCl [Zofran ODT] 4 mg SL Q4-6HP PRN #30 tablet PRN Reason: Nausea And Vomiting RX: Piperacillin Sodium/Tazobactam [Zosyn] 3.375 gm IV Q8 #18 vial RX: oxyCODONE/APAP [Percocet 10-325Mg] 1 tab PO Q6H PRN #10 tab PRN Reason: Pain RX: oxyCODONE/APAP [Percocet 5-325 mg] 1 tab PO Q4HP PRN #30 tablet PRN Reason: Pain Active and Home Medications: Active Medications Acetaminophen (Tylenol) 650 mg PO Q6HP PRN PRN Reason: PAIN/FEVER > 101 Last Admin: 05/17/16 08:38 Dose: 650 mg Albuterol Sulfate (Ventolin) 2.5 mg NEB Q4HRT PRN PRN Reason: Shortness Of Breath Or Wheezing Last Admin: 05/15/16 23:56 Dose: 2.5 mg Albuterol/Ipratropium (Duoneb) 3 ml NEB Q6HRT [facility] Last Admin: 05/19/16 07:44 Dose: 3 ml Aspirin (Aspirin) 81 mg PO DAILY [facility] Last Admin: 05/19/16 08:25 Dose: 81 mg Atorvastatin Calcium (Lipitor) 10 mg PO HS [facility] Last Admin: 05/18/16 21:40 Dose: 10 mg Clopidogrel Bisulfate (Plavix) 75 mg PO QDAY [facility] Last Admin: 05/19/16 08:26 Dose: 75 mg Docusate Sodium (Colace) 100 mg PO BID [facility] Last Admin: 05/19/16 08:25 Dose: 100 mg Duloxetine HCl (Cymbalta) 60 mg PO DAILY [facility] Last Admin: 05/19/16 08:26 Dose: 60 mg Ferrous Sulfate (Ferrous Sulfate) 325 mg PO QAC [facility] Last Admin: 05/19/16 08:24 Dose: 325 mg Gabapentin (Neurontin) 100 mg PO TID [facility] Last Admin: 05/19/16 08:26 Dose: 100 mg Gabapentin (Neurontin) 300 mg PO TID [facility] Last Admin: 05/19/16 08:26 Dose: 300 mg Piperacillin Sod/Tazobactam (Sod 3.375 gm/ Dextrose) 50 mls @ 100 mls/hr IV Q8 [facility] Last Admin: 05/19/16 05:47 Dose: 100 mls/hr Iron Carb/Multivit/[place]/Folic Acid (Multivitamin W/Minerals) 1 tab PO DAILY [facility] Last Admin: 05/19/16 09:13 Dose: Not Given Lactulose (Cephulac) 30 gm PO BIDP PRN PRN Reason: Constipation Lorazepam (Ativan) 0.5 mg PO QDAY PRN PRN Reason: ANXIETY/SEDATION Last Admin: 05/16/16 00:34 Dose: 0.5 mg Naloxone HCl (Narcan) 0.1 mg IV Q2MIN PRN PRN Reason: Opiate Reversal Nitroglycerin (Nitrostat) 0.4 mg SL Q5M PRN PRN Reason: Chest Pain Last Admin: 05/17/16 07:17 Dose: 0.4 mg Ondansetron HCl (Zofran) 4 mg IV Q4HP PRN PRN Reason: Nausea And Vomiting Last Admin: 05/18/16 04:57 Dose: 4 mg Oxycodone/Acetaminophen (Percocet 5-325 Mg) 1 tab PO Q4HP PRN PRN Reason: Pain Last Admin: 05/17/16 10:34 Dose: 1 tab Oxycodone/Acetaminophen (Percocet 10-325mg) 1 tab PO Q6H PRN PRN Reason: Pain Last Admin: 05/18/16 07:55 Dose: 1 tab Linaclotide [Linzess (] 290 Mcg Cap) 1 dose PO ACB [facility] Last Admin: 05/19/16 07:29 Dose: 1 dose Lubiprostone [ (Amitiza] 24 Mcg Tab) 1 dose PO BID [facility] Last Admin: 05/19/16 08:29 Dose: 1 dose Potassium Chloride (Kdur) 20 meq PO BIDCC [facility] Last Admin: 05/19/16 09:11 Dose: Not Given Prednisone (Prednisone) 40 mg PO BIDCC [facility] Senna/Docusate Sodium (Senna Plus Tablet) 1 tab PO HS [facility] Last Admin: 05/18/16 21:42 Dose: 1 tab Sodium Chloride (Saline Flush) 10 ml IV Q8 [facility] Last Admin: 05/19/16 05:47 Dose: 10 ml Spironolactone (Aldactone) 25 mg PO DAILY [facility] Last Admin: 05/19/16 08:25 Dose: 25 mg Torsemide (Demadex) 20 mg PO DAILY [facility] Last Admin: 05/19/16 08:26 Dose: 20 mg Vitamin D (Vitamin D3) 1,000 unit PO DAILY [facility] Last Admin: 05/19/16 08:26 Dose: 1,000 unit Medical - DS: Hosp Hospital course: Mr. Howard is a 66 year old male May 15, 2016:History of present illness: Ms. Howard is a 66 year old female with a history of chronic respiratory failure hypoxic, hypercarbic. She has been admitted twice recently with worsening respiratory failure. She was treated for pneumonia and COPD and briefly with BiPAP, and eventually became stable enough to return home. Unfortunately, at home, it appears she overuses her oxygen, and possibly her pain medications, and becomes somewhat obtunded, which then causes her to bring her back to the hospital. she reportedly also had a negative cardiac angiogram fairly recently that did not show coronary disease. today, she presented back to the emergency room via EMS, complaining of difficulty breathing. Her family reports that her O2 saturations have dropped as low as the 60s. she reportedly did have an O2 saturation of 74% this morning , and I believe that was on2 L of oxygen. in the emergency room she was given IV antibiotics oxygen, bronchodilators and IV steroids, and seems to be improving. She is now admitted for further observation and treatment. On interview at this time, she is sitting up in a chair, and is fairly conversant. However she is a bit drifty and seems to have a little bit of trouble keeping her eyes open at times. he states "I guess I wasn't breathing well". She says she understands that sometimes she uses too much oxygen, but says she has been trying not to let her O2 saturations get too high. Her apparently reported to other staff that his son has told him to turn off her oxygen and her saturations Below a certain point,so he does what his son tells him. she says she is also trying to take less pain medication and she understands that can affect her mental status as well. When asked what is going on at home that makes it so that she cannot seem to be compliant with instructions regarding pain meds and oxygen, she repeatedly states that she hat her life is just very stressful because of her children and grandchildren that she has to take care of. unfortunately, she does not appear to be very clearheaded on review of systems. She says yes to every question, including fevers, chills, headaches, cough with some blood streaks in her phlegm, chest pain, palpitations, shortness of breath. She seems to deny any GI issues, but reports some type of urinary issue which she says is related to a fecal something? She cannot quite complete that thought.she may be trying to describe hemorrhoids. May 19, 2016: the patient was readmitted to the intensive care uniton May 15. We initially tried managing her pulmonary status just with supplemental oxygen, keeping her sats between 88 and 90%, and hoping this would help her CO2 retention improved. Unfortunately it really did not get better, and she needed to go back on the BiPAP. On BiPAP, her CO2 ranges in the 70-80 range and O2 saturations [id number]%. If we remove her BiPAP for meals and such , her O2 sats tend to drop, and if those are dialed upto bring back her oxygen saturation, then her PO2 will range between 101 130. She has a very high serum bicarbonate, which helps to keep her pH in the normal range. Chest x-ray has not shown any definite evidence of either pneumonia or CHF. I did review her case with Dr. Joshi from pulmonology, in [place]. He feels that she likely just has end-stage lung disease, but there is not likely a whole lot more that can be done for her. Of course, one option, would be for her to go on a ventilator, but then she would probably need to have a trach and a long-term vent, which she declines. Over the last 2 days her white blood cell count has climbed, for unclear reasons. So far, the only indication we have for etiology, is that her sputum is growing Pseudomonas. She was therefore started back on IV Zosyn, and the white blood cell count is starting to improve again. I would plan on continuing this for at least a 7 day course. we have gone around and round with the patient and her family over the last several admissions about their inability to care for her adequately at home. The patient has always been insistent that she wants to return home, and the has been quite insistent that she doesn't really let him manage her medications or her oxygen. He says she will dilate up at will, and also take it often forget to put back on. It is fairly clear that she often does not use her medications correctly, and in the past has overused her pain medications because of her chronic pain syndrome. Her pain medications, her hypercarbia, her hypoxemia, and some of her other medications, all contribute todepressed mental status, which occurs frequently with her. At this point, she really is not safe to return home as there is no one there to help manage her medications and BiPAP. She is also quite weak and we feel she might benefit from physical therapy. After many discussionsbetween and the patient and the family and numerous staff members, they have agreed to give we have a try. Our hopes are thatthe rehabilitation staff can work with the patient and her to learn how to set up and run the BiPAP and how to titrate the oxygen, at home. Hopefully if they receive this education every day for a few weeks they will eventually be able to manage this at home. If she is to return home,she will definitelyneed help with managing medications. We've previously suggested bubble packs set up by the pharmacy for her, and for whatever reason, she and her have been resistant to that idea. at this time, the BiPAP can be removed for her to have meals but even if she maintains her O2 saturations, she needs to go back on the BiPAP mask right away , as leaving her on oxygen without the BiPAP leads so must immediately to hypercarbia and then depressed mental status. on exam today, the patient is awake and fairly alert. She seems quite willing now to go to rehabilitation for BiPAP support and attempt at physical therapy. Her is now very much in favor of this plan. Neck is supple without obvious lymphadenopathy or JVD. Cardiac exam shows regular rate and rhythm. Lung exam: Shows fairly decreased breath sounds throughout, with minimal crackles or wheezes today. She is periodically wheezy. Abdomen: Is soft and nontender. Extremities: Show minimal edema. Neurologic exam: Over the last 24 hours the patient has been mostly alert, although she remains forgetful. If her BiPAP is left off for too long, she does become quite somnolent and tends to drop her O2 saturations. A/P Narrative: #1. Pulmonary- Acute on chronic respiratory failure hypercapnic, hypoxic.. -This is this patient's third admission for the same problem in a month. she seems to do well while in the hospital,and keeping her bronchodilators and oxygen supply closely monitored. She fails when she returns home, it appears that this is at least partly due to a complicated family situation. he patient' s mental status gets depressed whenever her O2 saturations run too high, and also when she takes too much pain medication. -The patient's PCO2 does improve on the BiPAP, but PO2 levels remain quite low. I did call and discuss her case with the sampling expert from [place] , Dr. Joshi . We reviewed her history and her recent test results. He does not feel that there would be any real advantage to transferring her to [place] for further pulmonary workup. He says it sounds like she just has end-stage lung disease, and suggested she continue with BiPAP as long as it seems to offer some benefit. -these things have been reviewed extensively with the patient and her . -he patient is not interested in long-term ventilator management. (The options would be to go to rehabilitation with BiPAP support, and hope that she has some modest improvement, to the point where she could eventually return home with BiPAP after extensive teaching. A third option would be to just go home and connect with hospice, and agreed to no more aggressive care. ) -her white blood cell count did bump a bit , for unclear reasons. There is not currently any sign of pneumonia or congestive heart failure.her I's and O's are a bit on the negative side for her stay. BUN/creatinine continued to make her look a bit on the dry side. I did start her on a 1 week course of IV Zosyn to help treat the Pseudomonas growing out of her sputum, which either could be infection or colonization. - She does not seem oversedated with pain medications at this time.we will continue with bronchodilators and oral steroids to help control any COPD symptoms. -our nurse discovered today, that in addition to the IV steroids Ms. De La Fuente has been receiving, she was also still getting the oral prednisone. We have now stopped the IV steroids,and we'll switch her over to prednisone 40 mg twice a day, this should be tapered fairly rapidly down to 20 or 10 or even 0 mg per day. -She does have a limited code order, and has stated that she does not want back on the ventilator at any point. However she also denies wanting to seek hospice care, or give up on trying to get better. #2. Cardiac. -congestive heart failure by history, but clinically this appears compensated at this time. She may be a bit on the dry side, volume pan.-History of coronary artery disease. Continue aspirin, Plavix, statin. -given that she looks a little dry, and has electrolyte abnormalities, may hold her metolazone for now. #3. Chronic pain. -continue low-dose when necessary narcotics. also continue with gabapentin. Continue Cymbalta. #4. Noncompliance with medical regimen-Again we have asked social work to continue to work with the family to address this issue. #5. CODE STATUS: Limited code. No ventilation. #6. DVT prophylaxis: Continue Plavix, add SCDs. #7. Fluids and nutrition. -the patient does have hyponatremia, hypochloremia likely due to a combination of side effects of her diuretics and chronic respiratory acidosis with metabolic compensation. She continues to exhibit a metabolic alkalosis, which is likely compensatory. I expect to her apparent respiratory alkalosis , is due to her ongoing high levels of serum bicarbonate, and this should improve over time. #8. Infectious disease. -leukocytosis increased again, and patient does have a positive sputum culture, and her lung status is not quite as good as I would have expected. i elected to go ahead and start her on IV Zosyn, to cover for possible brewing Pseudomonas pneumonia. #9. . -Patient did have urinary retention earlier this month, so postvoid residual was checked yesterday, and was 200 mL. The patient otherwise seems to urinate well. #10. Altered mental status. We believe this is due to to acute on chronic respiratory failure with hypercarbia and hypoxia. -The patient also has multiple muscle twitches, which has been seen in her before. It is thought that this is related to her narcotics as well as her hypercarbia. these symptoms seem to be steadily improving. Discharge diagnosis: acute on chronic respiratory failure. Possible Pseudomonas pneumonia. - Time Spent with Patient Total time spent providing and/or coordinating discharge services: Greater than 30 minutes (proximally 40 minnutes has been sensitive far today, reviewing the patient's test results, interviewing and examining her, reviewing plan of care again with she and her , as well as with nursing staff, and writing orders. We are still working on trying to arrange a BiPAP set up for her, prior to discharge to the skilled nursing.) Medical - DS: Exam - Constitutional Vitals: Vital Signs Temp Pulse Pulse Resp BP Pulse Ox 05/19/16 11:23 119 H 29 H 87 L 05/19/16 09:37 118 H 22 92 05/19/16 08:06 72 18 92 05/19/16 08:00 98.0 F 110 H 16 123/84 92 05/19/16 07:46 92 05/19/16 05:56 122 H 05/19/16 04:18 97.2 F L 99 H 16 141/81 93 05/19/16 03:02 99 H 14 92 05/19/16 02:03 95 H 05/19/16 01:48 121 H 05/19/16 01:09 103 H 14 92 05/19/16 00:40 96.9 F L 101 H 16 143/66 91 05/18/16 23:02 124 H 05/18/16 20:00 97.1 F L 105 H 22 129/77 94 05/18/16 19:45 105 H 22 93 05/18/16 17:48 88 14 88 L 05/18/16 16:40 103 H 18 05/18/16 16:00 97.1 F L 101 H 14 117/62 87 L 05/18/16 15:50 88 14 88 L 05/18/16 15:26 95 H 14 87 L 05/18/16 13:51 101 H 18 05/18/16 12:00 97.2 F L 100 H 22 133/86 90 05/18/16 11:52 99 H 16 90 Intake and Output 05/18/16 05/19/16 05/19/16 21:59 05:59 13:59 Intake Total 320 / 320 290 / 290 240 / 240 Output Total 500 / 500 375 / 375 Balance -180 / -180 -85 / -85 240 / 240 Intake: IV 50 / 50 50 / 50 Dextrose 5% in Water 50 50 / 50 50 / 50 ml @ 100 mls/hr IV Q8 SARI with Zosyn 3.375 gm Rx#: [id number] Oral 270 / 270 240 / 240 240 / 240 Output: Void Amount 500 / 500 375 / 375 Other: Meal Dinner Breakfast Percent of Meal Consumed 50% 100% Feeding Ability Assist with Tray Set Up # Voids 1 # Bowel Movements 1 Weight 145 lb Medical - DS: Data Labs on day of discharge: Labs from last 24 hours 05/19/16 05/19/16 04:45 04:45 WBC 13.7 H RBC 4.72 Hgb 13.8 Hct 43.8 MCV 93.0 MCH 29.2 MCHC 31.4 RDW 14.1 Plt Count 370 MPV 7.3 L Gran % 94.6 H Lymph % (Auto) 3.2 L [place] % (Auto) 2.1 Eos % (Auto) 0.1 Baso % (Auto) 0 Gran # 13.0 H Lymph # 0.4 L [place] # 0.3 Eos # 0 Baso # 0 Sodium 132 L Potassium 4.5 Chloride 74 L Carbon Dioxide 49 H* Anion Gap 9.0 BUN 29 H Creatinine 0.8 GFR Calculation 76 Glucose 160 H Calcium 10.2 Total Bilirubin 0.5 AST 14 ALT 12 Alkaline Phosphatase 67 Total Protein 6.6 Albumin 4.4 Globulin 2.2 Albumin/Globulin Ratio 2.0 May 19: ABG today, after she had been off the BiPAP for about an hour, on 3 L of oxygen : Shows pH is 7.42, PCO2 of 105, PaO2 of 58, bicarbonate 60, O2 saturation 92% (aBG on BiPAP, with settings of 10/5, FiO2 of 20%: Shows pH of 7.50, PCO2 of 79 , PO2 of 50, bicarbonate of 60, O2 saturation of 89%) May 18: Sputum culture is growing pseudomonas aeruginosa,sensitive to amikacin, aztreonam, cefepime, ciprofloxacin, Zosyn, Levaquin, and intermediate to gentamicin. blood cultures are negative so far. ABG on a 4 L Oxymizer mask's morning, shows pH of 7.39, PCO2 105, PO2 of 84, bicarbonate May 17: BNP is elevated at 1720. MRSA screen was negative. urinalysis was essentially normal. ABG: PH 7.35, PCO2 84, PaO2 68, bicarbonate 46, O2 saturation 92%, on 3 L of oxygen troponin was normal at less than 0.01 yesterday. EKG shows normal sinus rhythm at a rate of about 100 with left axis deviation, and no obvious acute ischemic changes. chest x-ray:Shows no acute disease, and no change from May 09, 2016. Medical - DS: A/P - Patient/Caregiver Discharge Instructions Activity: as per physical therapy Diet: Low Sodium (2gm) Prescriptions: Ondansetron HCl [Zofran ODT] 4 mg SL Q4-6HP PRN #30 tablet PRN Reason: Nausea And Vomiting RX: Piperacillin Sodium/Tazobactam [Zosyn] 3.375 gm IV Q8 #18 vial RX: oxyCODONE/APAP [Percocet 10-325Mg] 1 tab PO Q6H PRN #10 tab PRN Reason: Pain RX: oxyCODONE/APAP [Percocet 5-325 mg] 1 tab PO Q4HP PRN #30 tablet PRN Reason: Pain Other Amb Orders: Home Oxygen Order Location: Determined By Patient OT Discharge Order Location: Determined By Patient Physical Therapy at Discharge - General Location: Determined By Patient - Problem Maintenance (1) Chronic pain disorder Status: Chronic (2) Hyponatremia Status: Acute (3) Cor pulmonale, acute Status: Chronic (4) CHF (congestive heart failure) Status: Chronic Qualifiers: Congestive heart failure type: unspecified congestive heart failure type Congestive heart failure chronicity: acute on chronic Qualified Code(s): I50.9 - Heart failure, unspecified (5) Respiratory failure with hypoxia and hypercapnia Status: Chronic Qualifiers: Chronicity: acute on chronic Qualified Code(s): J96.21 - Acute and chronic respiratory failure with hypoxia; J96.22 - Acute and chronic respiratory failure with hypercapnia (6) Neuropathy Status: Chronic - Follow up Plan Follow up with: Dino Jenkins MD [Primary Care Provider] - Disposition: Xfer SNF Prognosis: Fair Rehab Potential: Fair Overall status at discharge: patient is not back to baseline Medical - DS: Qual - VTE Deep Vein Thrombosis/Pulmonary Embolism Present on Admission: No
[2016-05-19] MEDS: oxyCODONE/APAP 5/325MG TABLET PO PRN (13:33)
[2016-05-19] MEDS ORDERED: predniSONE 20 MG TABLET PO SCH (17:30)
== END 2016-05-19 14:20 | DRG 189 ==
LOC: ED 06:58 → ICU 06:58
PROVIDERS: ADMIT Internal Medicine; ATTEND Internal Medicine

== ENCOUNTER 2016-05-19 22:04 | Inpatient (IN) ==
--- NOTE | 2016-05-19 22:30 | Emergency Department Note ---
[id number]: shortness of breath Time Seen by Provider: 05/19/16 22:14 Mode of arrival: ambulatory - History of Present Illness HPI Narrative: 66 year old with end stage COPD oxygen dependent who was recently hospitalized and admitted to ICU from 05/16 to 05/19 with multiple previous hospitalizations secondary to hypercapnic, hypoxic respiratory failure requiring BiPAP therapy and with pseudomonas growing on sputum culture, managed on Zosyn presenting via [facility] from [facility] after less than 12 hour stay with BiPAP in place with acute increased work of breathing, found to be in hypoxic respiratory failure. She is currently able to speak 1-2 word sentences. Patient's case previously reviewed with sheet metal assembler and riveter in [place], Dr. Joshi , with no recommendation on last hospitalization for transfer to [facility] due to patient having end stage lung disease, with recommendation to continue BiPAP therapy as long as it provides beneficial. She tonight is saturating 80-88% on BiPAP therapy. Discussed with Logan, her , to clarify her POLST form, after patient verbalized wishes to not have intubation, and to not be transferred to hospital upon arrival. He was there with Loraine when they filled the POLST out, and she did not want chest compressions, wanted medication and defibrillation if she went into an arrhythmia, wanted BiPap and CPAP but no intubation nor mechanical ventilation. - Related Data Home Medications Medication Instructions Recorded Confirmed Aspirin [Lo-Dose Aspirin EC] 81 mg PO ONCE 11/10/15 05/15/16 Lactulose [Enulose] 30 gm PO BID PRN 11/11/15 05/15/16 Nitroglycerin [Nitrostat] 0.4 mg SL Q5M PRN 11/11/15 05/15/16 clopidogrel 75 mg tablet 75 mg PO QDAY 90 Days 04/13/16 05/15/16 Oxygen 1.5 l INHALATION .continous 05/02/16 05/15/16 ferrous sulfate 325 mg (65 mg 325 mg PO QDAY 05/08/16 05/15/16 iron) tablet DULoxetine [Cymbalta] 60 mg PO DAILY 05/09/16 05/15/16 Ondansetron HCl [Zofran ODT] 4 mg SL Q4HP PRN 05/09/16 05/15/16 Previous Rx's Medication Instructions Recorded atorvastatin 10 mg tablet 10 mg PO QDAY #60 tab 01/20/16 potassium chloride ER 10 mEq 20 meq PO BID #120 tab 01/20/16 tablet,extended release torsemide 20 mg tablet 20 mg PO DAILY #30 tab 02/01/16 gabapentin 300 mg capsule 300 mg PO TID #90 cap 02/03/16 spironolactone 25 mg tablet 25 mg PO DAILY #30 tab 03/02/16 gabapentin 100 mg capsule 100 mg PO TID #90 cap 03/13/16 Acetaminophen [Tylenol] 650 mg PO Q4-6HP PRN #0 tab 04/28/16 Docusate Sodium [Colace] 100 mg PO BID cap 04/28/16 Multivit,Ther Iron,Ca,FA & Min 1 tab PO DAILY tab 04/28/16 [Multivitamin W/Minerals] Sennosides/Docusate Sodium [Senna 1 tab PO HS tab 04/28/16 Plus Tablet] metolazone 5 mg tablet 5 mg PO QDAY #90 tab 05/01/16 predniSONE [Deltasone] 40 mg PO DAILY #8 tablet 05/11/16 Albuterol Sulfate [Ventolin] 2.5 mg NEB Q4HRT PRN #0 ampul.neb 05/19/16 Ipratropium/Albuterol [Duoneb] 3 ml NEB Q6HRT ampul.neb 05/19/16 Naloxone HCl [Narcan] 0.1 mg IV Q2MIN PRN #0 vial 05/19/16 Ondansetron HCl [Zofran ODT] 4 mg SL Q4-6HP PRN #30 tablet 05/19/16 Piperacillin Sodium/Tazobactam 3.375 gm IV Q8 #18 vial 05/19/16 [Zosyn] Vitamin D3 1,000 unit PO DAILY tablet 05/19/16 oxyCODONE/APAP [Percocet 10-325Mg] 1 tab PO Q6H PRN #10 tab 05/19/16 oxyCODONE/APAP [Percocet 5-325 mg] 1 tab PO Q4HP PRN #30 tablet 05/19/16 predniSONE [Prednisone] 40 mg PO BIDCC tablet 05/19/16 Allergies Allergy/AdvReac Type Severity Reaction Status Date / Time doxycycline [DOXYCYCLINE] AdvReac Intermediate GI Upset Verified 05/15/16 07:05 levofloxacin AdvReac Intermediate Itching Verified 05/15/16 07:05 morphine AdvReac Mild Nausea/Vomi Verified 05/15/16 07:05 ting Review of Systems All systems ED: reviewed and negative except as stated. Past Medical History - Past Medical History Attestation: Yes: The following information was validated with the patient. 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, other - Social History Alcohol use: Reports: None Drug use: Reports: none Physical Exam - General General appearance: alert, obtunded, in distress (Increased work of breathing and obtunded able to speak 1-2 word sentences) - Head Head exam: atraumatic, normocephalic - Eye Eye exam: Present: normal appearance, PERRL, EOMI - ENT ENT exam: mucous membranes dry - Neck Neck exam: Present: normal inspection, full ROM - Respiratory Respiratory exam: Present: accessory muscle use, other (Absent breath sounds) - Cardiovascular Cardiovascular exam: Present: tachycardia - Abdominal Exam Abdominal exam: Present: distention - Extremities Exam Extremities exam: Present: normal inspection, full ROM - Neurological Exam Neurological exam: Present: alert Course Vital Signs Temperature 97.7 F 05/19/16 22:07 Pulse Rate 121 H 05/19/16 22:07 Respiratory Rate 16 05/19/16 22:07 Blood Pressure 136/98 05/19/16 22:07 Pulse Oximetry (%) 80 L 05/19/16 22:07 Temperature 97.7 F 05/19/16 22:07 Pulse Rate 122 H 05/20/16 02:07 Respiratory Rate 19 05/19/16 23:41 Blood Pressure 148/90 05/20/16 02:07 Pulse Oximetry (%) 88 L 05/20/16 02:07 Medical Decision Making - MDM Narrative Medical decision making narrative: Patient placed on BiPAP with ABG demonstrating PCO2 of 100 pH of 7.45 range and PO2 of 48, Saturating between 80 and 88% on BiPAP. She was admitted for hypercapnic hypoxic respiratory failure, admitted to PCU. She left in poor condition. - Lab Data Lab results narrative: ABG: pH 7.42, pC02 100, p02 48. - EKG Data EKG #1 EKG shows normal: sinus rhythm Rate: normal [place]/QRS: IVCD Voltage: c/w LVH Disposition Clinical Impression: Community acquired pneumonia, Acute respiratory failure with hypercapnia Disposition: Xfer As Inpt ([facility]) Condition: Fair Referrals: Dino Jenkins MD [Primary Care Provider] -
[2016-05-19] MEDS ORDERED: LACTATED RINGERS 1,000 ML IV ONE (22:52)
[2016-05-19] MEDS ORDERED: IPRATROPIUM/ALBUTEROL 3 ML AMPUL.NEB NEB ONE (22:52)
[2016-05-19] MEDS ORDERED: methylPREDNISolone SOD SUCC 125 MG/2 ML VIAL IV ONE (22:52)
[2016-05-19] MEDS ORDERED: PIPERACILLIN SODIUM/TAZOBACTAM 3.375 GM in DEXTROSE 5% IN WATER 50 ML IV SCH (23:00)
--- NOTE | 2016-05-20 02:33 | Internal Med History&Physical ---
Medical - H&P: HPI Patient information: Note initiated : 05/20/16 at 2:28 am Service Date, if different from initiated Date: [] Patient: Loraine Howard 66 y/o F admitted on for shortness of breath. Chief Complaint: [] History of present illness: Ms. Howard is a 66 year old female ho was admitted 3 times so far this month, with acute superimposed on chronic respiratory failure with hypoxia and hypercarbia. It became clear during her last admission that she really cannot read without the help of BiPAP. Pulmonology suggested that she just on BiPAP from now on, since she declines ventilator management. yesterday, we felt that the patient had probably reached stable state, where she only takes the BiPAP off for meals and liquids, and otherwise keeps the BiPAP on 24 hours a day. on these settings, her CO2 ranges in the 70-80 range, with O2 saturations of 88-92% . If BiPAP is removed and she is just placed on oxygen via nasal cannula, her PT3vgembe to greater than 100. Her pH has remained fairly normal because of a vigorous serum bicarbonate response. our team went to great pains over the last several days finding a place for the patient to go, and convincing the patient that she should go to a nursing home facility instead of trying to go home. [facility] did agree to take her with her BiPAP machineyesterday. She was discharged there yesterday afternoon. It is not clear what happened after she got to the [facility]. There were records indicate that she was started on BiPAP, but apparently she became quite dyspneic at some point, and they called 911. video game designer reported that she was not on BiPAP when they arrived, and that it did not appear the machine had been turned on. The patient was hypoxic into the 60s, and was subtotally brought to the emergency room. on arrival here,she apparently was on a 12 L oxygen mask, and pH was 7.42, PCO2 100, PO2 48, O2 saturation 82%. The patient was readmitted, once again, to stabilize her respiratory status. she otherwise denies any new symptomsover the 12 hours that she was out of the hospital. She denies fever or chills, headaches or dizziness,new eye or earsymptoms sore throat. She continues to have a cough and wheezing. She continues to have moderate shortness of breath with minimal activities. She denies abdominal pain, nausea or vomiting, diarrhea or constipation, dysuria. Medical History COPD (chronic obstructive pulmonary disease) with chronic bronchitis (Acute) Cor pulmonale, acute (Acute) Respiratory failure with hypoxia and hypercapnia status post admission May 09 and April 24 CHF (congestive heart failure) (Acute) COPD exacerbation (Acute) Coronary artery disease with stable angina pectoris (Acute) Epistaxis (Acute) Hypercapnia (Acute) Left lower lobe pneumonia (Acute) Anxiety disorder (Chronic) Back pain (Chronic) CAD (coronary artery disease) (Chronic) Carotid stenosis (Chronic) Chronic constipation (Chronic) Chronic, continuous use of opioids (Chronic) DMII (diabetes mellitus, type 2) (Chronic) Depressive disorder (Chronic) Gastritis, acute (Chronic) Hyperlipidemia (Chronic) Hypokalemia (Chronic) Metabolic alkalosis (Chronic) Neuropathy (Chronic) Sleep apnea (Chronic) Tobacco abuse (Chronic) Vaginal vault prolapse, posthysterectomy (Chronic) Vertigo, benign positional (Chronic) Vitamin D deficiency (Chronic) Past Surgical History H/O cervical spine surgery (Resolved) H/O reduction mammoplasty (Resolved) H/O tubal ligation (Resolved) History of surgery (Resolved) S/P WAI-BSO (Resolved) S/P appendectomy (Resolved) S/P colonoscopy (Resolved 10/22/12) S/P dilation and curettage (Resolved) Uterine prolapse (Resolved) medications: torsemide 20 mg daily Metolazone 5 mg daily DuoNeb's 4 times a day Fluticasone-Vilanterol inhaler 200/25 one puff daily prednisone 40 mg daily Cymbalta 60 mg daily iron sulfate 325 mg daily Vitamin D 1000 units daily Oxygen 0.5-2.5 L, continuous. Nitroglycerin 0.4 mg sublingual when necessary Lactulose 30 g twice a day when necessary Zofran 4 mg every 4 hours when necessary Tylenol when necessary Maalox when necessary Aspirin 81 mg daily Lipitor 10 mg daily (Zithromax, to be completed May 13post (Chlorhexidine swabs twice a day Plavix 75 mg daily colace 100 mg twice a day Gabapentin 400 mg 3 times a day Ativan 0.5 mg daily when necessary Percocet 103 25 one every 6 hours when necessary Amitiza 24 g by mouth twice a day K-Dur 20 mEq twice a day Phenergan when necessary Spironolactone 25 mg daily allergies: Doxycycline, Levaquin, morphine Family history: Father cardiac disease, . Social history: ex smoker, but now uses e cigs denies etoh, denies drug use. Medical - H&P: Meds Home Medications Medication Instructions Recorded Confirmed Type Aspirin [Lo-Dose Aspirin EC] 81 mg PO ONCE 11/10/15 05/20/16 History Lactulose [Enulose] 30 gm PO BID PRN 11/11/15 05/20/16 History Nitroglycerin [Nitrostat] 0.4 mg SL Q5M PRN 11/11/15 05/20/16 History clopidogrel 75 mg tablet 75 mg PO QDAY 90 Days 04/13/16 05/20/16 History Oxygen 1.5 l INHALATION .continous 05/02/16 05/20/16 History ferrous sulfate 325 mg (65 mg 325 mg PO QDAY 05/08/16 05/20/16 History iron) tablet DULoxetine [Cymbalta] 60 mg PO DAILY 05/09/16 05/20/16 History Ondansetron HCl [Zofran ODT] 4 mg SL Q4HP PRN 05/09/16 05/20/16 History Allergies Allergy/AdvReac Type Severity Reaction Status Date / Time doxycycline [DOXYCYCLINE] AdvReac Intermediate GI Upset Verified 05/15/16 07:05 levofloxacin AdvReac Intermediate Itching Verified 05/15/16 07:05 morphine AdvReac Mild Nausea/Vomi Verified 05/15/16 07:05 ting Medical - H&P: Exam - Constitutional Vitals: Temp Pulse Resp BP Pulse Ox 97.7 F 122 H 19 148/90 88 L 05/19/16 22:07 05/20/16 02:07 05/19/16 23:41 05/20/16 02:07 05/20/16 02:07 Exam: The patient was seen at approximately 2:30 this morning, and again around 10:00 this morning. She is awake and fairly alert. She does get drowsy and follow sleep frequently , as appears to be her new baseline. Head: Normocephalic/atraumatic. Eyes: PERRLA, EOMI, anicteric. TMs and canals are clear. Pharynx is clear. Mucosa appears normal. Neck:Appears supple, without obvious lymphadenopathy, JVD, thyromegaly, bruits. Cardiac exam: Shows regular rate and rhythm, without murmurs, rubs, gallops. she is quite tachycardic. Lungs: Have decreased breath sounds, with scattered crackles and very soft end expiratory wheezes. There is no sensory muscle use. Abdomen: Is soft and nontender. There is an implanted pain device noted in the left abdomen. Extremities: Show no significant cyanosis, clubbing, edema. Neurologic exam:Patient is awake, but somewhat sleepy. She is calm and cooperative. Motor exam is grossly nonfocal, but she does have some involuntary twitching which is baseline for her. Medical - H&P: Reslt - Labs Labs: CBC shows white blood cell count of 13,000, hemoglobin 13, hematocrit 43, platelets 370,000 chemistry panel shows sodium 132, potassium 4.5, chloride 74,bicarbonate 49, nightly 29, creatinine 0.8, glucose 160 LFTs normal sputum culture from April 26 grew Pseudomonas, sensitive to amikacin, aztreonam , cefepime ciprofloxacin, Levaquin, Zosyn. ABG on 12 L O2: PH 7.42, PCO2 100, PO2 48 bicarbonate 60, O2 saturation 82% Hemoglobin A1c is normal at 6.3%. EKG shows sinus tachycardia at a rate of 116 with left axis deviation and left anterior fascicular block. Compared to 2 days ago, the rate is markedly increased. 05/20/16: Chest x-ray:Chest x-ray shows no infiltrates or masses or signs of pulmonary vascular congestion. Medical - H&P: A/P (1) Acute exacerbation of chronic obstructive airways disease Current visit: No Status: Acute (2) COPD (chronic obstructive pulmonary disease) with chronic bronchitis Current visit: No Status: Acute (3) Back pain Current visit: No Status: Chronic (4) CHF (congestive heart failure) Current visit: No Status: Chronic (5) Chronic pain disorder Current visit: No Status: Chronic (6) Cor pulmonale, acute Current visit: No Status: Chronic (7) Neuropathy Current visit: No Status: Chronic (8) Respiratory failure with hypoxia and hypercapnia Current visit: No Status: Chronic - Narrative A/P Narrative: #1. Pulmonary- Acute on chronic respiratory failure hypercapnic, hypoxic.. -This is this patient's fourth admission for the same problem in a month. she seems to do well while in the hospital,and keeping her bronchodilators and oxygen supply closely monitored. She fails when she returns home. as of yesterday, she was quite stablebeing maintained on BiPAPfor almost 24 hours a day. It was clear to all of us that she and her could not manage the BiPAP and her medications at home, so [facility] was [facility] for [facility] management and BiPAP management. Our understanding was that they knew how to manage the BiPAP they are, howeverthey do not have a respiratory therapy department, and it sounds like things deteriorated quickly once the patient got there. -she is now readmitted, and has been placed back on the BiPAP, and seems to be settling down again. She continues to desaturate quickly as soon as she is taken off BiPAP. If she is taken off BiPAP and put on oxygen, her CO2 levels climbed rapidly. -she clearly has end-stage lung disease, and there really isno further measures that would improveher prognosis, other than tracheostomy and long-term ventilator management. She had her do not desire this. -cecily're still waffling on her CODE STATUS, but currently she is basically a no code, although he says he would accept defibrillation, but not ventilation or chest compressions. (yesterday, we presented the options as: would be to go to rehabilitation with BiPAP support, and hope that she has some modest improvement, to the point where she could eventually return home with BiPAP after extensive teaching. A third option would be to just go home and connect with hospice, and agreed to no more aggressive care. ) -her white blood cell count did bump a bit , for unclear reasons. There is not currently any sign of pneumonia or congestive heart failure.her I's and O's are a bit on the negative side for her stay. BUN/creatinine continued to make her look a bit on the dry side. I did start her on a 1 week course of IV Zosyn to help treat the Pseudomonas growing out of her sputum, which either could be infection or colonization. - She does not seem oversedated with pain medications at this time.we will continue with bronchodilators and oral steroids to help control any COPD symptoms. #2. Cardiac. -congestive heart failure by history, but clinically this appears compensated at this time. She may be a bit on the dry side, volume pan.-History of coronary artery disease. Continue aspirin, Plavix, statin. -given that she looks a little dry, and has electrolyte abnormalities, may hold her metolazone for now. #3. Chronic pain. -continue low-dose when necessary narcotics. also continue with gabapentin. Continue Cymbalta. #4. Noncompliance with medical regimen --our case management staff has been working very hard to help the patient and her understand what they are and are not capable of doing. I think at this point, they both understand that she could not be cared for at home without hiring a 24 hour nurse. #5. CODE STATUS: Limited code. No ventilation. #6. DVT prophylaxis: Continue Plavix, add SCDs. #7. Fluids and nutrition. -the patient does have hyponatremia, hypochloremia likely due to a combination of side effects of her diuretics and chronic respiratory acidosis with metabolic compensation. She continues to exhibit a metabolic alkalosis, which is likely compensatory. I expect to her apparent respiratory alkalosis , is due to her ongoing high levels of serum bicarbonate, and this should improve over time. #8. Infectious disease. -leukocytosis increased again, and patient does have a positive sputum culture, and her lung status is not quite as good as I would have expected. i elected to go ahead and start her on IV Zosyn, to cover for possible brewing Pseudomonas pneumonia. we will plan on continuing with this for now. #9. . -Patient did have urinary retention earlier this month, so postvoid residual was checked yesterday, and was 200 mL. The patient otherwise seems to urinate well. #10. Altered mental status. We believe this is due to to acute on chronic respiratory failure with hypercarbia and hypoxia, in addition to chronic use of pain medications. we will continue to try to titrate these, to balance her pain with her mental status. So far today, approximately 80 minutes has been spent reviewing the patient's case with the ER Jabier, reviewing her chart, interviewing and examining her reviewing plan of care, again, with nursing staff, and writing orders.
[2016-05-20] MEDS ORDERED: PIPERACILLIN SODIUM/TAZOBACTAM 3.375 GM in DEXTROSE 5% IN WATER 50 ML IV SCH ×2 (02:48)
[2016-05-20] MEDS ORDERED: ALBUTEROL SULFATE 2.5 MG/3 ML NEBULIZER NEB PRN (02:48)
[2016-05-20] MEDS ORDERED: DEXTROSE 50% 50 ML VIAL IV PRN (02:48)
[2016-05-20] MEDS ORDERED: MAGNESIUM HYDROXIDE 30 ML ORAL.SUSP PO PRN (02:48)
[2016-05-20 04:03] LABS: Hemoglobin A1C 6.3 % HGB (4.0-6.0)
[2016-05-20] MEDS ORDERED: ONDANSETRON 4 MG/2 ML VIAL ONE (04:15)
[2016-05-20] MEDS: 0.9 % SODIUM CHLORIDE 10 ML SYRINGE IV SCH ×3 (06:02→22:19)
[2016-05-20] MEDS: GABAPENTIN 400 MG CAPSULE PO SCH ×3 (06:02→22:17)
[2016-05-20] MEDS ORDERED: PIPERACILLIN SODIUM/TAZOBACTAM 3.375 GM VIAL IV ONE (06:09)
[2016-05-20] MEDS: IPRATROPIUM/ALBUTEROL 3 ML AMPUL.NEB NEB SCH ×3 (06:54→20:05)
[2016-05-20] MEDS ORDERED: IPRATROPIUM/ALBUTEROL 3 ML AMPUL.NEB NEB ONE (07:04)
[2016-05-20] MEDS: INSULIN LISPRO 1 UNIT/0.01 ML UNIT SQ SCH ×4 (08:03→22:17)
[2016-05-20] MEDS: ASPIRIN 81 MG TAB.CHEW CHEWED SCH (09:52)
[2016-05-20] MEDS: CLOPIDOGREL 75 MG TABLET PO SCH (09:52)
[2016-05-20] MEDS: DOCUSATE SODIUM 100 MG CAPSULE PO SCH ×2 (09:52→22:16)
[2016-05-20] MEDS: TORSEMIDE 10 MG TABLET PO SCH (09:52)
[2016-05-20] MEDS ORDERED: NALOXONE HCL 0.4 MG/ML VIAL IV PRN (09:53)
[2016-05-20] MEDS ORDERED: NITROGLYCERIN 0.4 MG TAB.SUBL SL PRN (09:53)
--- NOTE | 2016-05-20 10:37 | XRay Report ---
CLINICAL INFORMATION: Respiratory failure TECHNIQUE: AP portable semiupright chest x-ray COMPARISON: Previous chest x-rays dated 05/17/2016 and 05/15/2016 FINDINGS: Lungs are negative. No parenchymal infiltrate or mass. Heart size and vascularity are normal. Jazmín and mediastinum are negative. No pleural fluid. No acute abnormality or interval change. IMPRESSION: Negative AP portable chest x-ray. Interpreted and Authenticated by: Zak Deutsch 05/20/16
[2016-05-20] MEDS: METOLAZONE 2.5 MG TABLET PO SCH (10:38)
[2016-05-20] MEDS: oxyCODONE/APAP 5/325MG TABLET PO PRN (10:41)
[2016-05-20] MEDS ORDERED: LACTULOSE 20 GM/30 ML ORAL.SOL PO PRN (11:00)
[2016-05-20] MEDS: LORazepam 2 MG/ML VIAL IV PRN (13:22)
[2016-05-20] MEDS: PIPERACILLIN SODIUM/TAZOBACTAM 3.375 GM in DEXTROSE 5% IN WATER 50 ML IV SCH ×2 (14:15→22:19)
[2016-05-20] MEDS: predniSONE 20 MG TABLET PO SCH (16:11)
[2016-05-20] MEDS: POTASSIUM CHLORIDE 20 MEQ TABLET PO SCH (16:11)
[2016-05-20] MEDS: SENNOSIDES/DOCUSATE SODIUM 1 TAB TABLET PO SCH (22:17)
[2016-05-21] MEDS: IPRATROPIUM/ALBUTEROL 3 ML AMPUL.NEB NEB SCH ×4 (01:18→18:50)
[2016-05-21] MEDS: PIPERACILLIN SODIUM/TAZOBACTAM 3.375 GM in DEXTROSE 5% IN WATER 50 ML IV SCH ×3 (05:08→20:45)
[2016-05-21] MEDS: ONDANSETRON 4 MG/2 ML VIAL IV PRN (05:22)
[2016-05-21] MEDS: 0.9 % SODIUM CHLORIDE 10 ML SYRINGE IV SCH ×6 (05:22→20:46)
[2016-05-21] MEDS: GABAPENTIN 400 MG CAPSULE PO SCH ×3 (05:35→20:46)
[2016-05-21 07:08] LABS: ALT/SGPT 13 U/l (0-40); Albumin 4.3 gm/dL (3.2-5.2); Albumin/Globulin Ratio 1.6 (1.0-2.3); Alkaline Phosphatase 65 U/L (39-117); Bilirubin,Direct < 0.2 mg/dL (0.0-0.3); Blood Urea Nitrogen 37 mg/dl (8-23); Gamma Glutamyl Transpeptidase 17 U/L (5-36); Magnesium 1.8 mg/dL (1.6-2.5); Phosphorous 2.9 mg/dL (2.7-4.5)
[2016-05-21] MEDS: INSULIN LISPRO 1 UNIT/0.01 ML UNIT SQ SCH ×4 (07:47→20:53)
[2016-05-21] MEDS: TORSEMIDE 10 MG TABLET PO SCH (09:00)
[2016-05-21] MEDS: SPIRONOLACTONE 25 MG TABLET PO SCH (09:00)
[2016-05-21] MEDS: DOCUSATE SODIUM 100 MG CAPSULE PO SCH ×2 (09:00→20:45)
[2016-05-21] MEDS: POTASSIUM CHLORIDE 20 MEQ TABLET PO SCH ×2 (09:00→17:23)
[2016-05-21] MEDS: MULTIVIT,THER IRON,CA,FA & MIN 1 TABLET PO SCH (09:01)
[2016-05-21] MEDS: METOLAZONE 2.5 MG TABLET PO SCH (09:02)
[2016-05-21] MEDS: ASPIRIN 81 MG TAB.CHEW CHEWED SCH (09:02)
[2016-05-21] MEDS: CLOPIDOGREL 75 MG TABLET PO SCH (09:02)
[2016-05-21] MEDS: predniSONE 20 MG TABLET PO SCH ×2 (09:02→17:24)
[2016-05-21] MEDS: ATORVASTATIN 20 MG TABLET PO SCH (09:03)
[2016-05-21] MEDS: DULoxetine 30 MG CAPSULE PO SCH (09:03)
[2016-05-21] MEDS: VITAMIN D3 1,000 UNIT TABLET PO SCH (09:03)
[2016-05-21] MEDS: oxyCODONE/APAP 5/325MG TABLET PO PRN (10:29)
[2016-05-21] MEDS: LORazepam 2 MG/ML VIAL IV PRN (11:07)
--- NOTE | 2016-05-21 13:34 | Internal Med Progress Note ---
Medical - PN: Subj Patient information: Note initiated : 05/21/16 at 1:34 pm Service Date, if different from initiated Date: [] Patient: Loraine Howard 66 y/o F admitted on 05/20/16 for shortness of breath. Chief Complaint: [] Interval history: 05/20/16: History of present illness: Ms. Howard is a 66 year old female who was admitted 3 times so far this month, with acute superimposed on chronic respiratory failure with hypoxia and hypercarbia. It became clear during her last admission that she really cannot breathe without the help of BiPAP. Pulmonology suggested that she just on BiPAP from now on, since she declines ventilator management. yesterday, we felt that the patient had probably reached stable state, where she only takes the BiPAP off for meals and liquids, and otherwise keeps the BiPAP on 24 hours a day. on these settings, her CO2 ranges in the 70-80 range, with O2 saturations of 88-92% . If BiPAP is removed and she is just placed on oxygen via nasal cannula, her [id number] to greater than 100. Her pH has remained fairly normal because of a vigorous serum bicarbonate response. our team went to great pains over the last several days finding a place for the patient to go, and convincing the patient that she should go to a residential facility instead of trying to go home. [facility] did agree to take her with her BiPAP machineyesterday. She was discharged there yesterday afternoon. It is not clear what happened after she got to the long term. There were records indicate that she was started on BiPAP, but apparently she became quite dyspneic at some point, and they called 911. stroke belt sander operator reported that she was not on BiPAP when they arrived, and that it did not appear the machine had been turned on. The patient was hypoxic into the 60s, and was subtotally brought to the emergency room. on arrival here,she apparently was on a 12 L oxygen mask, and pH was 7.42, PCO2 100, PO2 48, O2 saturation 82%. The patient was readmitted, once again, to stabilize her respiratory status. she otherwise denies any new symptoms over the 12 hours that she was out of the hospital. She denies fever or chills, headaches or dizziness,new eye or ear symptoms sore throat. She continues to have a cough and wheezing. She continues to have moderate shortness of breath with minimal activities. She denies abdominal pain, nausea or vomiting, diarrhea or constipation, dysuria. 05/21: Last night, and again once this morning, the patient really just sold her respiratory rate markedly, and dropped her O2 saturations. Things do rebound when she is awake and then stimulated. She continues to be quite dyspneic Nurses now she is bringing up a little bit of sputum. She has some chest discomfort only when she coughs. She has been tachycardic lately. The nursing staff and her family feel like she is just tired of working so hard to breathe. She is asking for medication to help her relax and help her sleep. otherwise, she denies fever or chills palpitations, GI or symptoms. - Constitutional Vitals: Vital Signs Temp Pulse Resp BP Pulse Ox 98.0 F 123 H 21 116/78 88 L 05/21/16 12:00 05/21/16 12:57 05/21/16 12:57 05/21/16 12:00 05/21/16 12:52 Period Temp Pulse Resp BP Sys/Cano Pulse Ox Last 24 Hr 97.4 F-98.5 F 101-128 12-26 111-161/59-104 83-96 Intake and Output 05/20/16 05/21/16 05/21/16 21:59 05:59 13:59 Intake Total 50 / 50 400 / 400 530 / 530 Output Total 560 / 560 445 / 445 565 / 565 Balance -510 / -510 -45 / -45 -35 / -35 Weight 141 lb 8 oz Intake & Output: Intake & Output 05/20/16 05/21/16 05/21/16 21:59 05:59 13:59 Intake Total 50 / 50 400 / 400 530 / 530 Output Total 560 / 560 445 / 445 565 / 565 Balance -510 / -510 -45 / -45 -35 / -35 Weight 141 lb 8 oz Intake: IV 50 / 50 50 / 50 50 / 50 Dextrose 5% in Water 50 50 / 50 50 / 50 50 / 50 ml @ 100 mls/hr IV Q8 SARI with Zosyn 3.375 gm Rx#: [id number] Oral 350 / 350 480 / 480 Output: Urine Catheter Amount 560 / 560 445 / 445 565 / 565 Other: Meal Breakfast Percent of Meal Consumed 75% Feeding Ability Total Assistance Exam: on exam, she appears quite fatigued. She does have accessory muscle use.BiPAP is in place. Neck shows no obvious JVD or lymphadenopathy. Cardiac exam shows a somewhat irregular rhythm. Lung exam shows decreased breath sounds throughout, but no significant wheezing at this time. Abdomen:is soft and nontender. Extremities: Show no significant edema. Medical - PN: Obj Da - Labs CBC & Chem 7: 05/21/16 04:12 Labs: Abnormal Lab Results 05/21/16 05/20/16 04:12 03:20 Chloride 74 L Carbon Dioxide 54 H* BUN 37 H Glucose 134 H Hemoglobin A1c 6.3 H Calcium 10.8 H Triglycerides 156 H 05/21: Heart rate is currently in the 120s. Respiratory rate varying from 21-26. , O2 saturation on BiPAP with 34% FiO2 was running at about 88-90% I and O balance is -1500 mL 05/20: -CBC shows white blood cell count of 13,000, hemoglobin 13, hematocrit 43, platelets 370,000 -chemistry panel shows sodium 132, potassium 4.5, chloride 74,bicarbonate 49, nightly 29, creatinine 0.8, glucose 160 -LFTs normal -sputum culture from April 26 grew Pseudomonas, sensitive to amikacin, aztreonam, cefepime ciprofloxacin, Levaquin, Zosyn. -aBG on BiPAP, 45% FiO2, settings of 15/6: PH 7.51, PCO2 91, PO2 78, bicarbonate greater than 60, O2 saturation 91% -ABG on 12 L O2: PH 7.42, PCO2 100, PO2 48 bicarbonate 60, O2 saturation 82% -Hemoglobin A1c is normal at 6.3%. -EKG shows sinus tachycardia at a rate of 116 with left axis deviation and left anterior fascicular block. Compared to 2 days ago, the rate is markedly increased. -05/20/16: Chest x-ray:Chest x-ray shows no infiltrates or masses or signs of pulmonary vascular congestion. Meds: Medications Albuterol Sulfate (Ventolin) 2.5 mg NEB Q2HP PRN PRN Reason: Shortness Of Breath Albuterol/Ipratropium (Duoneb) 3 ml NEB Q6HRT SARI Last Admin: 05/21/16 12:53 Dose: 3 ml Aspirin (Aspirin) 81 mg CHEWED DAILY [facility] Last Admin: 05/21/16 09:02 Dose: 81 mg Atorvastatin Calcium (Lipitor) 10 mg PO DAILY [facility] Last Admin: 05/21/16 09:03 Dose: 10 mg Clopidogrel Bisulfate (Plavix) 75 mg PO DAILY [facility] Last Admin: 05/21/16 09:02 Dose: 75 mg Dextrose (Dextrose 50%) 0 ml IV UD PRN PRN Reason: Hypoglycemia Diagnostic Test (Pha) (Accu-Chek) 1 each FS ACHS [facility] Last Admin: 05/21/16 12:20 Dose: 1 each Docusate Sodium (Colace) 100 mg PO BID [facility] Last Admin: 05/21/16 09:00 Dose: 100 mg Duloxetine HCl (Cymbalta) 60 mg PO DAILY [facility] Last Admin: 05/21/16 09:03 Dose: 60 mg Gabapentin (Neurontin) 400 mg PO Q8 [facility] Last Admin: 05/21/16 05:35 Dose: Not Given Piperacillin Sod/Tazobactam (Sod 3.375 gm/ Dextrose) 50 mls @ 100 mls/hr IV Q8 [facility] Last Infusion: 05/21/16 06:00 Dose: Infused Insulin Human Lispro (Humalog) 0 unit SQ [facility] PRN Reason: Protocol Last Admin: 05/21/16 12:21 Dose: 6 unit Iron Carb/Multivit/Body Mechanic Apprentice/Folic Acid (Multivitamin W/Minerals) 1 tab PO DAILY [facility] Last Admin: 05/21/16 09:01 Dose: 1 tab Lactulose (Cephulac) 30 gm PO BIDP PRN PRN Reason: CONSTIPATION Lorazepam (Ativan) 0.5 mg IV Q2HP PRN PRN Reason: ANXIETY/SEDATION Last Admin: 05/21/16 11:07 Dose: 0.5 mg Magnesium Hydroxide (Milk Of Magnesia) 30 ml PO DAILYP PRN PRN Reason: Constipation Metolazone (Zaroxolyn) 5 mg PO DAILY@0830 [facility] Last Admin: 05/21/16 09:02 Dose: 5 mg Naloxone HCl (Narcan) 0.1 mg IV Q2MIN PRN PRN Reason: Opiate Reversal Nitroglycerin (Nitrostat) 0.4 mg SL Q5M PRN PRN Reason: Chest Pain Ondansetron HCl (Zofran) 4 mg IV Q4HP PRN PRN Reason: Nausea And Vomiting Last Admin: 05/21/16 05:22 Dose: 4 mg Oxycodone/Acetaminophen (Percocet 5-325 Mg) 1 tab PO Q4-6HP PRN PRN Reason: Pain Last Admin: 05/21/16 10:29 Dose: 1 tab Potassium Chloride (Kdur) 20 meq PO BIDCC [facility] Last Admin: 05/21/16 09:00 Dose: 20 meq Prednisone (Prednisone) 40 mg PO BIDCC [facility] Last Admin: 05/21/16 09:02 Dose: 40 mg Senna/Docusate Sodium (Senna Plus Tablet) 1 tab PO HS [facility] Last Admin: 05/20/16 22:17 Dose: Not Given Sodium Chloride (Saline Flush) 10 ml IV Q8 [facility] Last Admin: 05/21/16 11:08 Dose: 10 ml Spironolactone (Aldactone) 25 mg PO DAILY [facility] Last Admin: 05/21/16 09:00 Dose: 25 mg Torsemide (Demadex) 20 mg PO DAILY [facility] Last Admin: 05/21/16 09:00 Dose: 20 mg Vitamin D (Vitamin D3) 1,000 unit PO DAILY [facility] Last Admin: 05/21/16 09:03 Dose: 1,000 unit Medical - PN: A/P - Time Spent With Patient Total time spent is greater than 50% in coordination of care (as documented) at patient's floor/unit and/or counseling patient: (1) Acute exacerbation of chronic obstructive airways disease Status: Acute Current Visit: No (2) COPD (chronic obstructive pulmonary disease) with chronic bronchitis Status: Acute Current Visit: No (3) Back pain Status: Chronic Current Visit: No (4) CHF (congestive heart failure) Status: Chronic Current Visit: No (5) Chronic pain disorder Status: Chronic Current Visit: No (6) Cor pulmonale, acute Status: Chronic Current Visit: No (7) Neuropathy Status: Chronic Current Visit: No (8) Respiratory failure with hypoxia and hypercapnia Status: Chronic Current Visit: No - Narrative A/P Narrative: #1. Pulmonary- Acute on chronic respiratory failure hypercapnic, hypoxic.. -This is this patient's fourth admission for the same problem in a month. she seems to do well while in the hospital,and keeping her bronchodilators and oxygen supply closely monitored. She fails when she returns home. -the patient appears to be fatigued even more today. Her lung disease is quite end-stage. I discussed this with her at length today, and then briefly later with her and granddaughter. he patient seems to say that she would like to remain on BiPAP rather than remove it. But she is requesting comfort medications such as IV Dilaudid and Ativan to keep her more comfortable. The family agrees that they would like to keep her comfortable. They have not yet committed to hospice with comfort care only, so I will continue with IV antibiotics and BiPAP for the time being. I will ask social work to meet with them again to clarify their wishes further. -she clearly has end-stage lung disease, and there really are no further measures that would improve her prognosis, other than tracheostomy and long- term ventilator management. She and her do not desire this. -They're still waffling on her CODE STATUS, but currently she is basically a no code, although he says he would accept defibrillation, but not ventilation or chest compressions. - She does not seem oversedated with pain medications at this time.we will continue with bronchodilators and oral steroids to help control any COPD symptoms. #2. Cardiac. -congestive heart failure by history, but clinically this appears compensated at this time. She may be a bit on the dry side, volume pan.-History of coronary artery disease. Continue aspirin, Plavix, statin. -given that she looks a little dry, and has electrolyte abnormalities, may hold her metolazone for now. #3. Chronic pain. -continue low-dose when necessary narcotics. also continue with gabapentin. Continue Cymbalta as tolerated.. #4. Noncompliance with medical regimen --our case management staff has been working very hard to help the patient and her understand what they are and are not capable of doing. I think at this point, they both understand that she could not be cared for at home without hiring a 24 hour nurse. #5. CODE STATUS: Limited code. No ventilation. #6. DVT prophylaxis: Continue Plavix, add SCDs. #7. Fluids and nutrition. -the patient does have hyponatremia, hypochloremia likely due to a combination of side effects of her diuretics and chronic respiratory acidosis with metabolic compensation. She continues to exhibit a metabolic alkalosis, which is likely compensatory. #8. Infectious disease. -leukocytosis increased again, and patient does have a positive sputum culture, and her lung status is not quite as good as I would have expected. i elected to go ahead and start her on IV Zosyn, to cover for possible brewing Pseudomonas pneumonia. we will plan on continuing with this for now. -depending on if the patient and the family decided on comfort care, I may add vancomycin to be sure she is covered for staph pneumonia. #9. . -Patient did have urinary retention earlier this month, so postvoid residual was checked yesterday, and was 200 mL. The patient otherwise seems to urinate well. #10. Altered mental status. We believe this is due to to acute on chronic respiratory failure with hypercarbia and hypoxia, in addition to chronic use of pain medications. we will continue to try to titrate these, to balance her pain with her mental status. -continue when necessary IV Dilaudid and Ativan. approximately 40 minutes has been spent so far today, reviewing patient's chart and test results, interviewing and examining her, discussing plan of care with the patient and her family and nursing staff. Medical - PN: Qual - VTE Deep Vein Thrombosis/Pulmonary Embolism Present on Admission: No
[2016-05-21] MEDS ORDERED: VANCOMYCIN PER PHARMACY IV ONE (14:53)
[2016-05-21] MEDS: HYDROmorphone 2 MG/ML SYRINGE IV PRN (15:39)
[2016-05-21] MEDS: VANCOMYCIN 1,000 MG in 0.9 % SODIUM CHLORIDE 250 ML IV SCH (16:23)
[2016-05-21] MEDS: SENNOSIDES/DOCUSATE SODIUM 1 TAB TABLET PO SCH (20:44)
[2016-05-22] MEDS: IPRATROPIUM/ALBUTEROL 3 ML AMPUL.NEB NEB SCH ×4 (01:03→17:49)
[2016-05-22] MEDS: PIPERACILLIN SODIUM/TAZOBACTAM 3.375 GM in DEXTROSE 5% IN WATER 50 ML IV SCH ×3 (05:34→22:18)
[2016-05-22] MEDS: 0.9 % SODIUM CHLORIDE 10 ML SYRINGE IV SCH ×6 (05:35→22:23)
[2016-05-22] MEDS: GABAPENTIN 400 MG CAPSULE PO SCH ×3 (06:42→22:00)
[2016-05-22] MEDS: HYDROmorphone 2 MG/ML SYRINGE IV PRN (06:50)
[2016-05-22] MEDS: ONDANSETRON 4 MG/2 ML VIAL IV PRN (06:50)
[2016-05-22] MEDS: INSULIN LISPRO 1 UNIT/0.01 ML UNIT SQ SCH ×4 (07:04→22:22)
[2016-05-22] MEDS: POTASSIUM CHLORIDE 20 MEQ TABLET PO SCH ×2 (08:08→17:30)
[2016-05-22] MEDS: predniSONE 20 MG TABLET PO SCH ×2 (08:08→17:30)
[2016-05-22] MEDS: METOLAZONE 2.5 MG TABLET PO SCH (08:08)
[2016-05-22] MEDS: LORazepam 2 MG/ML VIAL IV PRN (08:09)
[2016-05-22 08:17] LABS: ALT/SGPT 13 U/l (0-40); Albumin 4.4 gm/dL (3.2-5.2); Albumin/Globulin Ratio 2.4 (1.0-2.3); Alkaline Phosphatase 63 U/L (39-117); Bilirubin,Direct 0.3 mg/dL (0.0-0.3); Blood Urea Nitrogen 38 mg/dl (8-23); Gamma Glutamyl Transpeptidase 18 U/L (5-36); Magnesium 1.8 mg/dL (1.6-2.5); Phosphorous 3.3 mg/dL (2.7-4.5); Uric Acid 4.1 mg/dL (2.5-8.0)
[2016-05-22] MEDS: SPIRONOLACTONE 25 MG TABLET PO SCH (09:13)
[2016-05-22] MEDS: VITAMIN D3 1,000 UNIT TABLET PO SCH (09:13)
[2016-05-22] MEDS: ASPIRIN 81 MG TAB.CHEW CHEWED SCH (09:13)
[2016-05-22] MEDS: MULTIVIT,THER IRON,CA,FA & MIN 1 TABLET PO SCH (09:13)
[2016-05-22] MEDS: ATORVASTATIN 20 MG TABLET PO SCH (09:13)
[2016-05-22] MEDS: DOCUSATE SODIUM 100 MG CAPSULE PO SCH ×2 (09:13→21:59)
[2016-05-22] MEDS: TORSEMIDE 10 MG TABLET PO SCH (09:14)
[2016-05-22] MEDS: CLOPIDOGREL 75 MG TABLET PO SCH (09:14)
[2016-05-22] MEDS: DULoxetine 30 MG CAPSULE PO SCH (09:14)
[2016-05-22] MEDS: VANCOMYCIN 1,000 MG in 0.9 % SODIUM CHLORIDE 250 ML IV SCH (09:16)
--- NOTE | 2016-05-22 11:16 | Internal Med Progress Note ---
Medical - PN: Subj Patient information: Note initiated : 05/22/16 at 11:16 am Service Date, if different from initiated Date: [] Patient: Loraine Howard 66 y/o F admitted on 05/20/16 for shortness of breath. Chief Complaint: [] Interval history: 05/20/16: History of present illness: Ms. Howard is a 66 year old female who was admitted 3 times so far this month, with acute superimposed on chronic respiratory failure with hypoxia and hypercarbia. It became clear during her last admission that she really cannot breathe without the help of BiPAP. Pulmonology suggested that she just on BiPAP from now on, since she declines ventilator management. yesterday, we felt that the patient had probably reached stable state, where she only takes the BiPAP off for meals and liquids, and otherwise keeps the BiPAP on 24 hours a day. on these settings, her CO2 ranges in the 70-80 range, with O2 saturations of 88-92% . If BiPAP is removed and she is just placed on oxygen via nasal cannula, her [id number] to greater than 100. Her pH has remained fairly normal because of a vigorous serum bicarbonate response. our team went to great pains over the last several days finding a place for the patient to go, and convincing the patient that she should go to a care home facility instead of trying to go home. [facility] did agree to take her with her BiPAP machineyesterday. She was discharged there yesterday afternoon. It is not clear what happened after she got to the [facility]. There were records indicate that she was started on BiPAP, but apparently she became quite dyspneic at some point, and they called 911. tucking machine operator reported that she was not on BiPAP when they arrived, and that it did not appear the machine had been turned on. The patient was hypoxic into the 60s, and was subtotally brought to the emergency room. on arrival here,she apparently was on a 12 L oxygen mask, and pH was 7.42, PCO2 100, PO2 48, O2 saturation 82%. The patient was readmitted, once again, to stabilize her respiratory status. she otherwise denies any new symptoms over the 12 hours that she was out of the hospital. She denies fever or chills, headaches or dizziness,new eye or ear symptoms sore throat. She continues to have a cough and wheezing. She continues to have moderate shortness of breath with minimal activities. She denies abdominal pain, nausea or vomiting, diarrhea or constipation, dysuria. 05/21: Last night, and again once this morning, the patient really just sold her respiratory rate markedly, and dropped her O2 saturations. Things do rebound when she is awake and then stimulated. She continues to be quite dyspneic Nurses now she is bringing up a little bit of sputum. She has some chest discomfort only when she coughs. She has been tachycardic lately. The nursing staff and her family feel like she is just tired of working so hard to breathe. She is asking for medication to help her relax and help her sleep. otherwise, she denies fever or chills palpitations, GI or symptoms. 05/22: the patient continues to be very weak. She still occasionally drops her O2 sats, when her breathing slows and become shallow. She reports she is feeling quite tired, and has also been having some back pain. She is requesting that we continue to give her IV pain meds as well as IV Ativan for anxiety. She is hoping that her son can come and see her Her and her granddaughter seemed to understand that she is unlikely to improve and that we are moving towards comfort care. the nurse contacted the this morning, and he has spoken with the son who lives in [place]. He apparently will be arriving around midnight tonight. Otherwise, the patient denies fever or chills, chest pain or palpitations. She continues to work fairly hard to breathe, but is not having severe cough. she generally maintains her O2 saturations on the BiPAP. She has been able to take some oral medication and some food but not much. She denies abdominal pain or other GI or symptoms. - Constitutional Vitals: Vital Signs Temp Pulse Resp BP Pulse Ox 99.6 F 105 H 16 103/71 87 L 05/22/16 08:00 05/22/16 07:18 05/22/16 10:00 05/22/16 10:00 05/22/16 10:00 Period Temp Pulse Resp BP Sys/Cano Pulse Ox Last 24 Hr 97.4 F-99.6 F 91-128 12- 97-147/56-104 86-96 Intake and Output 05/21/16 05/22/16 05/22/16 21:59 05:59 13:59 Intake Total 930 / 930 50 / 50 625 / 625 Output Total 660 / 660 530 / 530 250 / 250 Balance 270 / 270 -480 / -480 375 / 375 Weight 141 lb 8 oz 143 lb 9.6 oz Intake & Output: Intake & Output 05/21/16 05/22/16 05/22/16 21:59 05:59 13:59 Intake Total 930 / 930 50 / 50 625 / 625 Output Total 660 / 660 530 / 530 250 / 250 Balance 270 / 270 -480 / -480 375 / 375 Weight 141 lb 8 oz 143 lb 9.6 oz Intake: IV 300 / 300 50 / 50 50 / 50 Dextrose 5% in Water 50 50 / 50 50 / 50 50 / 50 ml @ 100 mls/hr IV Q8 ASRI with Zosyn 3.375 gm Rx#: [id number] Sodium Chloride 0.9% 250 250 / 250 ml @ 250 mls/hr IV DAILY SARI with Vancomycin 1,000 mg Rx#:[id number] Oral 630 / 630 575 / 575 Output: Urine Catheter Amount 660 / 660 530 / 530 250 / 250 Other: Meal Dinner Breakfast Percent of Meal Consumed 75% 25% Feeding Ability Needs Supervision Total Assistance Exam: on exam, she is awake, but a little bit confused, and otherwise in no acute distress. Neckshows no obvious JVD. Cardiac exam is fairly irregular. Lungs: Show diffuse soft wheezes, and generally decreased breath sounds. Abdomen:is soft and nontender Extremities show no significant edema. Neurologic: The patient is intermittently confused, but overall has been fairly comfortable. Medical - PN: Obj Da - Labs CBC & Chem 7: 05/22/16 04:35 Labs: Abnormal Lab Results 05/22/16 05/21/16 05/20/16 04:35 04:12 03:20 Chloride 73 L 74 L Carbon Dioxide 57 H* 54 H* Anion Gap 6.0 L BUN 38 H 37 H Glucose 134 H Hemoglobin A1c 6.3 H Calcium 10.5 H 10.8 H Globulin 1.8 L Albumin/Globulin Ratio 2.4 H Triglycerides 156 H 05/22: -o2 saturation is currently 86% on, on BiPAP with 35% FiO2. intake and output balance is -1785. 05/21: Heart rate is currently in the 120s. Respiratory rate varying from 21-26., O2 saturation on BiPAP with 34% FiO2 was running at about 88-90% I and O balance is -1500 mL 05/20: -CBC shows white blood cell count of 13,000, hemoglobin 13, hematocrit 43, platelets 370,000 -chemistry panel shows sodium 132, potassium 4.5, chloride 74,bicarbonate 49, nightly 29, creatinine 0.8, glucose 160 -LFTs normal -sputum culture from April 26 grew Pseudomonas, sensitive to amikacin, aztreonam, cefepime ciprofloxacin, Levaquin, Zosyn. -aBG on BiPAP, 45% FiO2, settings of 15/6: PH 7.51, PCO2 91, PO2 78, bicarbonate greater than 60, O2 saturation 91% -ABG on 12 L O2: PH 7.42, PCO2 100, PO2 48 bicarbonate 60, O2 saturation 82% -Hemoglobin A1c is normal at 6.3%. -EKG shows sinus tachycardia at a rate of 116 with left axis deviation and left anterior fascicular block. Compared to 2 days ago, the rate is markedly increased. -05/20/16: Chest x-ray:Chest x-ray shows no infiltrates or masses or signs of pulmonary vascular congestion. Meds: Medications Albuterol Sulfate (Ventolin) 2.5 mg NEB Q2HP PRN PRN Reason: Shortness Of Breath Albuterol/Ipratropium (Duoneb) 3 ml NEB Q6HRT [facility] Last Admin: 05/22/16 07:08 Dose: 3 ml Aspirin (Aspirin) 81 mg CHEWED DAILY [facility] Last Admin: 05/22/16 09:13 Dose: 81 mg Atorvastatin Calcium (Lipitor) 10 mg PO DAILY [facility] Last Admin: 05/22/16 09:13 Dose: 10 mg Clopidogrel Bisulfate (Plavix) 75 mg PO DAILY [facility] Last Admin: 05/22/16 09:14 Dose: 75 mg Dextrose (Dextrose 50%) 0 ml IV UD PRN PRN Reason: Hypoglycemia Diagnostic Test (Pha) (Accu-Chek) 1 each FS ACHS [facility] Last Admin: 05/22/16 07:04 Dose: 1 each Docusate Sodium (Colace) 100 mg PO BID [facility] Last Admin: 05/22/16 09:13 Dose: 100 mg Duloxetine HCl (Cymbalta) 60 mg PO DAILY [facility] Last Admin: 05/22/16 09:14 Dose: 60 mg Gabapentin (Neurontin) 400 mg PO Q8 [facility] Last Admin: 05/22/16 06:42 Dose: 400 mg Hydromorphone HCl (Dilaudid) 0.5 mg IV Q1HP PRN PRN Reason: Pain Last Admin: 05/22/16 06:50 Dose: 0.5 mg Piperacillin Sod/Tazobactam (Sod 3.375 gm/ Dextrose) 50 mls @ 100 mls/hr IV Q8 [facility] Last Infusion: 05/22/16 06:33 Dose: Infused Vancomycin HCl 1,000 mg/ (Sodium Chloride) 250 mls @ 250 mls/hr IV DAILY [facility] Last Admin: 05/22/16 09:16 Dose: 250 mls/hr Insulin Human Lispro (Humalog) 0 unit SQ ACHS [facility] PRN Reason: Protocol Last Admin: 05/22/16 07:04 Dose: Not Given Iron Carb/Multivit/Manager Global/Folic Acid (Multivitamin W/Minerals) 1 tab PO DAILY [facility] Last Admin: 05/22/16 09:13 Dose: 1 tab Lactulose (Cephulac) 30 gm PO BIDP PRN PRN Reason: CONSTIPATION Lorazepam (Ativan) 0.5 mg IV Q2HP PRN PRN Reason: ANXIETY/SEDATION Last Admin: 05/22/16 08:09 Dose: 0.5 mg Magnesium Hydroxide (Milk Of Magnesia) 30 ml PO DAILYP PRN PRN Reason: Constipation Metolazone (Zaroxolyn) 5 mg PO DAILY@0830 [facility] Last Admin: 05/22/16 08:08 Dose: 5 mg Naloxone HCl (Narcan) 0.1 mg IV Q2MIN PRN PRN Reason: Opiate Reversal Nitroglycerin (Nitrostat) 0.4 mg SL Q5M PRN PRN Reason: Chest Pain Ondansetron HCl (Zofran) 4 mg IV Q4HP PRN PRN Reason: Nausea And Vomiting Last Admin: 05/22/16 06:50 Dose: 4 mg Oxycodone/Acetaminophen (Percocet 5-325 Mg) 1 tab PO Q4-6HP PRN PRN Reason: Pain Last Admin: 05/21/16 10:29 Dose: 1 tab Potassium Chloride (Kdur) 20 meq PO BIDCC [facility] Last Admin: 05/22/16 08:08 Dose: 20 meq Prednisone (Prednisone) 40 mg PO BIDCC [facility] Last Admin: 05/22/16 08:08 Dose: 40 mg Senna/Docusate Sodium (Senna Plus Tablet) 1 tab PO HS [facility] Last Admin: 05/21/16 20:44 Dose: 1 tab Sodium Chloride (Saline Flush) 10 ml IV Q8 [facility] Last Admin: 05/22/16 08:08 Dose: 10 ml Spironolactone (Aldactone) 25 mg PO DAILY [facility] Last Admin: 05/22/16 09:13 Dose: 25 mg Torsemide (Demadex) 20 mg PO DAILY [facility] Last Admin: 05/22/16 09:14 Dose: 20 mg Vitamin D (Vitamin D3) 1,000 unit PO DAILY [facility] Last Admin: 05/22/16 09:13 Dose: 1,000 unit Medical - PN: A/P - Time Spent With Patient Total time spent is greater than 50% in coordination of care (as documented) at patient's floor/unit and/or counseling patient: (1) Acute exacerbation of chronic obstructive airways disease Status: Acute Current Visit: No (2) COPD (chronic obstructive pulmonary disease) with chronic bronchitis Status: Acute Current Visit: No (3) Back pain Status: Chronic Current Visit: No (4) CHF (congestive heart failure) Status: Chronic Current Visit: No (5) Chronic pain disorder Status: Chronic Current Visit: No (6) Cor pulmonale, acute Status: Chronic Current Visit: No (7) Neuropathy Status: Chronic Current Visit: No (8) Respiratory failure with hypoxia and hypercapnia Status: Chronic Current Visit: No - Narrative A/P Narrative: #1. Pulmonary- Acute on chronic respiratory failure hypercapnic, hypoxic.. -This is this patient's fourth admission for the same problem in a month. she seems to do well while in the hospital,and keeping her bronchodilators and oxygen supply closely monitored. She fails when she returns home. -the patient appears to be fatigued even more today. Her lung disease is quite end-stage. he is asking to see her son today, and it appears he will be flying in tonight around midnight. After that visit, we will confirm that they are all in agreement with comfort care. At that point her BiPAP could be removed and she can just be placed on an oxygen mask, and she can move to a private room , where her family can spend as much time with her as they would like. -she clearly has end-stage lung disease, and there really are no further measures that would improve her prognosis, other than tracheostomy and long- term ventilator management. She and her do not desire this. -it appears that at this time, the is willing to make her a DNR CODE STATUS. CPR would be futile in this patient. - She does not seem oversedated with pain medications at this time.we will continue with bronchodilators and oral steroids to help control any COPD symptoms. #2. Cardiac. -congestive heart failure by history, but clinically this appears compensated at this time. She may be a bit on the dry side, volume pan.-History of coronary artery disease. Continue aspirin, Plavix, statin. -given that she looks a little dry, and has electrolyte abnormalities, hold her metolazone for now. #3. Chronic pain. -continue low-dose when necessary narcotics. also continue with gabapentin. Continue Cymbalta as tolerated.. #4. Noncompliance with medical regimen , #5. CODE STATUS: DNR. #6. DVT prophylaxis: Continue Plavix, add SCDs. #7. Fluids and nutrition. -the patient does have hyponatremia, hypochloremia likely due to a combination of side effects of her diuretics and chronic respiratory acidosis with metabolic compensation. She continues to exhibit a metabolic alkalosis, which is likely compensatory. #8. Infectious disease. -leukocytosis increased again, and patient does have a positive sputum culture, and her lung status is not quite as good as I would have expected. - on IV Zosyn , to cover for possible brewing Pseudomonas pneumonia. we will plan on continuing with this for now. vancomycin was added for better staph coverage. If the family decides on comfort care, we could certainly withdraw antibiotics. #10. Altered mental status. We believe this is due to to acute on chronic respiratory failure with hypercarbia and hypoxia, in addition to chronic use of pain medications. we will continue to try to titrate these, to balance her pain with her mental status. -continue when necessary IV Dilaudid and Ativan. approximately 30 minutes has been spent so far today, reviewing patient's chart and test results, interviewing and examining her, discussing plan of care with the patient and nursing staff. Medical - PN: Qual - VTE Deep Vein Thrombosis/Pulmonary Embolism Present on Admission: No
[2016-05-22] MEDS: SENNOSIDES/DOCUSATE SODIUM 1 TAB TABLET PO SCH (22:00)
[2016-05-23] MEDS: IPRATROPIUM/ALBUTEROL 3 ML AMPUL.NEB NEB SCH ×2 (01:02→07:09)
[2016-05-23] MEDS: HYDROmorphone 2 MG/ML SYRINGE IV PRN ×3 (03:28→12:32)
[2016-05-23] MEDS: GABAPENTIN 400 MG CAPSULE PO SCH (05:32)
[2016-05-23] MEDS: 0.9 % SODIUM CHLORIDE 10 ML SYRINGE IV SCH ×5 (05:32→12:33)
[2016-05-23] MEDS: PIPERACILLIN SODIUM/TAZOBACTAM 3.375 GM in DEXTROSE 5% IN WATER 50 ML IV SCH (05:32)
[2016-05-23] MEDS: predniSONE 20 MG TABLET PO SCH (07:27)
[2016-05-23] MEDS: INSULIN LISPRO 1 UNIT/0.01 ML UNIT SQ SCH (07:28)
[2016-05-23] MEDS: POTASSIUM CHLORIDE 20 MEQ TABLET PO SCH (07:28)
[2016-05-23] MEDS: METOLAZONE 2.5 MG TABLET PO SCH (07:28)
[2016-05-23 07:35] LABS: ALT/SGPT 12 U/l (0-40); Albumin 4.1 gm/dL (3.2-5.2); Albumin/Globulin Ratio 1.7 (1.0-2.3); Alkaline Phosphatase 60 U/L (39-117); Bilirubin,Direct < 0.2 mg/dL (0.0-0.3); Blood Urea Nitrogen 33 mg/dl (8-23); Gamma Glutamyl Transpeptidase 17 U/L (5-36); Magnesium 1.7 mg/dL (1.6-2.5); Phosphorous 2.5 mg/dL (2.7-4.5); Uric Acid 3.7 mg/dL (2.5-8.0)
--- NOTE | 2016-05-23 08:18 | Internal Med Progress Note ---
Medical - PN: Subj Patient information: Note initiated : 05/23/16 at 8:18 am Service Date, if different from initiated Date: [] Patient: Loraine Howard 66 y/o F admitted on 05/20/16 for SOB/Chronic Resp Failure Hypercapnic, Hypoxic. Chief Complaint: [] Interval history: 05/20/16: History of present illness: Ms. Howard is a 66 year old female who was admitted 3 times so far this month, with acute superimposed on chronic respiratory failure with hypoxia and hypercarbia. It became clear during her last admission that she really cannot breathe without the help of BiPAP. Pulmonology suggested that she just on BiPAP from now on, since she declines ventilator management. yesterday, we felt that the patient had probably reached stable state, where she only takes the BiPAP off for meals and liquids, and otherwise keeps the BiPAP on 24 hours a day. on these settings, her CO2 ranges in the 70-80 range, with O2 saturations of 88-92% . If BiPAP is removed and she is just placed on oxygen via nasal cannula, her [id number] to greater than 100. Her pH has remained fairly normal because of a vigorous serum bicarbonate response. our team went to great pains over the last several days finding a place for the patient to go, and convincing the patient that she should go to a correction facility instead of trying to go home. [facility] home did agree to take her with her BiPAP machineyesterday. She was discharged there yesterday afternoon. It is not clear what happened after she got to the custodial. There were records indicate that she was started on BiPAP, but apparently she became quite dyspneic at some point, and they called 911. rice dryer mechanic reported that she was not on BiPAP when they arrived, and that it did not appear the machine had been turned on. The patient was hypoxic into the 60s, and was subtotally brought to the emergency room. on arrival here,she apparently was on a 12 L oxygen mask, and pH was 7.42, PCO2 100, PO2 48, O2 saturation 82%. The patient was readmitted, once again, to stabilize her respiratory status. she otherwise denies any new symptoms over the 12 hours that she was out of the hospital. She denies fever or chills, headaches or dizziness,new eye or ear symptoms sore throat. She continues to have a cough and wheezing. She continues to have moderate shortness of breath with minimal activities. She denies abdominal pain, nausea or vomiting, diarrhea or constipation, dysuria. 05/21: Last night, and again once this morning, the patient really just sold her respiratory rate markedly, and dropped her O2 saturations. Things do rebound when she is awake and then stimulated. She continues to be quite dyspneic Nurses now she is bringing up a little bit of sputum. She has some chest discomfort only when she coughs. She has been tachycardic lately. The nursing staff and her family feel like she is just tired of working so hard to breathe. She is asking for medication to help her relax and help her sleep. otherwise, she denies fever or chills palpitations, GI or symptoms. 05/22: the patient continues to be very weak. She still occasionally drops her O2 sats, when her breathing slows and become shallow. She reports she is feeling quite tired, and has also been having some back pain. She is requesting that we continue to give her IV pain meds as well as IV Ativan for anxiety. She is hoping that her son can come and see her Her and her granddaughter seemed to understand that she is unlikely to improve and that we are moving towards comfort care. the nurse contacted the this morning, and he has spoken with the son who lives in [place]. He apparently will be arriving around midnight tonight. Otherwise, the patient denies fever or chills, chest pain or palpitations. She continues to work fairly hard to breathe, but is not having severe cough. she generally maintains her O2 saturations on the BiPAP. She has been able to take some oral medication and some food but not much. She denies abdominal pain or other GI or symptoms. 05/23- patient overnight on BiPAP. critically ill. High risk mortality. Await family members for decision to convert to palliative measures in light of end- stage COPD. Patient unable to tolerate off BiPAP for more than 10-15 minutes. Persistent hypercapnia. - Constitutional Vitals: Vital Signs Temp Pulse Resp BP Pulse Ox 98.6 F 106 H 15 113/78 91 05/23/16 05:00 05/23/16 07:47 05/23/16 07:47 05/23/16 05:00 05/23/16 07:47 Period Temp Pulse Resp BP Sys/Cano Pulse Ox Last 24 Hr 97.1 F-98.6 F 102-122 14-26 92-117/53-90 86-94 Intake and Output 05/22/16 05/23/16 05/23/16 21:59 05:59 13:59 Intake Total 50 / 50 410 / 410 50 / 50 Output Total 485 / 485 675 / 675 Balance -435 / -435 -265 / -265 50 / 50 Weight 137 lb 14.4 oz Intake & Output: Intake & Output 05/22/16 05/23/16 05/23/16 21:59 05:59 13:59 Intake Total 50 / 50 410 / 410 50 / 50 Output Total 485 / 485 675 / 675 Balance -435 / -435 -265 / -265 50 / 50 Weight 137 lb 14.4 oz Intake: IV 50 / 50 50 / 50 50 / 50 Dextrose 5% in Water 50 50 / 50 50 / 50 50 / 50 ml @ 100 mls/hr IV Q8 SARI with Zosyn 3.375 gm Rx#: [id number] Oral 360 / 360 Output: Urine Catheter Amount 485 / 485 675 / 675 Other: Percent of Meal Consumed 25% # Bowel Movements 0 General appearance: moderate distress Exam: shortness of breath labored breathing Nondistended abdomen Anxious Medical - PN: Obj Da - Labs CBC & Chem 7: 05/23/16 04:00 Labs: Abnormal Lab Results 05/23/16 05/22/16 05/21/16 04:00 04:35 04:12 Sodium 131 L Potassium 3.1 L Chloride 70 L 73 L 74 L Carbon Dioxide 56 H* 57 H* 54 H* Anion Gap 5.0 L 6.0 L BUN 33 H 38 H 37 H Glucose 125 H 134 H Calcium 10.5 H 10.8 H Phosphorus 2.5 L Globulin 1.8 L Albumin/Globulin Ratio 2.4 H Triglycerides 156 H Meds: Medications Albuterol Sulfate (Ventolin) 2.5 mg NEB Q2HP PRN PRN Reason: Shortness Of Breath Albuterol/Ipratropium (Duoneb) 3 ml NEB Q6HRT SARI Last Admin: 05/23/16 07:09 Dose: 3 ml Aspirin (Aspirin) 81 mg CHEWED DAILY [facility] Last Admin: 05/22/16 09:13 Dose: 81 mg Atorvastatin Calcium (Lipitor) 10 mg PO DAILY [facility] Last Admin: 05/22/16 09:13 Dose: 10 mg Clopidogrel Bisulfate (Plavix) 75 mg PO DAILY [facility] Last Admin: 05/22/16 09:14 Dose: 75 mg Dextrose (Dextrose 50%) 0 ml IV UD PRN PRN Reason: Hypoglycemia Diagnostic Test (Pha) (Accu-Chek) 1 each FS ACHS [facility] Last Admin: 05/23/16 07:28 Dose: 1 each Docusate Sodium (Colace) 100 mg PO BID [facility] Last Admin: 05/22/16 21:59 Dose: Not Given Duloxetine HCl (Cymbalta) 60 mg PO DAILY [facility] Last Admin: 05/22/16 09:14 Dose: 60 mg Gabapentin (Neurontin) 400 mg PO Q8 [facility] Last Admin: 05/23/16 05:32 Dose: 400 mg Hydromorphone HCl (Dilaudid) 0.5 mg IV Q1HP PRN PRN Reason: Pain Last Admin: 05/23/16 03:28 Dose: 0.5 mg Piperacillin Sod/Tazobactam (Sod 3.375 gm/ Dextrose) 50 mls @ 100 mls/hr IV Q8 [facility] Last Infusion: 05/23/16 06:44 Dose: Infused Vancomycin HCl 1,000 mg/ (Sodium Chloride) 250 mls @ 250 mls/hr IV DAILY [facility] Last Infusion: 05/22/16 12:00 Dose: Infused Insulin Human Lispro (Humalog) 0 unit SQ [facility] PRN Reason: Protocol Last Admin: 05/23/16 07:28 Dose: Not Given Iron Carb/Multivit/External Grinder Tool/Folic Acid (Multivitamin W/Minerals) 1 tab PO DAILY [facility] Last Admin: 05/22/16 09:13 Dose: 1 tab Lactulose (Cephulac) 30 gm PO BIDP PRN PRN Reason: CONSTIPATION Lorazepam (Ativan) 0.5 mg IV Q2HP PRN PRN Reason: ANXIETY/SEDATION Last Admin: 05/22/16 08:09 Dose: 0.5 mg Magnesium Hydroxide (Milk Of Magnesia) 30 ml PO DAILYP PRN PRN Reason: Constipation Metolazone (Zaroxolyn) 5 mg PO DAILY@0830 [facility] Last Admin: 05/23/16 07:28 Dose: 5 mg Naloxone HCl (Narcan) 0.1 mg IV Q2MIN PRN PRN Reason: Opiate Reversal Nitroglycerin (Nitrostat) 0.4 mg SL Q5M PRN PRN Reason: Chest Pain Ondansetron HCl (Zofran) 4 mg IV Q4HP PRN PRN Reason: Nausea And Vomiting Last Admin: 05/22/16 06:50 Dose: 4 mg Oxycodone/Acetaminophen (Percocet 5-325 Mg) 1 tab PO Q4-6HP PRN PRN Reason: Pain Last Admin: 05/21/16 10:29 Dose: 1 tab [facility] Admin: 05/23/16 07:28 Dose: 20 meq [facility] Last Admin: 05/23/16 07:27 Dose: 40 mg Senna/Docusate Sodium (Senna Plus Tablet) 1 tab PO HS [facility] Last Admin: 05/22/16 22:00 Dose: Not Given Sodium Chloride (Saline Flush) 10 ml IV Q8 [facility] Last Admin: 05/23/16 05:32 Dose: 10 ml Spironolactone (Aldactone) 25 mg PO DAILY [facility] Last Admin: 05/22/16 09:13 Dose: 25 mg Torsemide (Demadex) 20 mg PO DAILY [facility] Last Admin: 05/22/16 09:14 Dose: 20 mg Vitamin D (Vitamin D3) 1,000 unit PO DAILY [facility] Last Admin: 05/22/16 09:13 Dose: 1,000 unit Medical - PN: A/P - Time Spent With Patient Total time spent is greater than 50% in coordination of care (as documented) at patient's floor/unit and/or counseling patient: 25 - 35 minutes (1) Acute exacerbation of chronic obstructive airways disease Status: Acute Assessment and plan: * COPD exacerbation end-stage COPD-critically ill and high risk mortality. Multiple hospitalizations in the last 1 month. Extreme CO2 retention. Family discussing palliative intervention. Currently on noninvasive ventilation. Imminent * hypercapnic respiratory failure-secondary to above, on noninvasive ventilation * Hypercapnic encephalopathy-secondary to above Plan * Await family decision for comfort care transition * continue noninvasive ventilation * Imminent Current Visit: No Medical - PN: Qual - VTE Deep Vein Thrombosis/Pulmonary Embolism Present on Admission: No
[2016-05-23] MEDS: ATORVASTATIN 20 MG TABLET PO SCH (09:43)
[2016-05-23] MEDS: DULoxetine 30 MG CAPSULE PO SCH (09:44)
[2016-05-23] MEDS: VITAMIN D3 1,000 UNIT TABLET PO SCH (09:45)
[2016-05-23] MEDS: MULTIVIT,THER IRON,CA,FA & MIN 1 TABLET PO SCH (09:45)
[2016-05-23] MEDS: CLOPIDOGREL 75 MG TABLET PO SCH (09:45)
[2016-05-23] MEDS: SPIRONOLACTONE 25 MG TABLET PO SCH (09:45)
[2016-05-23] MEDS: DOCUSATE SODIUM 100 MG CAPSULE PO SCH (09:45)
[2016-05-23] MEDS: ASPIRIN 81 MG TAB.CHEW CHEWED SCH (09:46)
[2016-05-23] MEDS: TORSEMIDE 10 MG TABLET PO SCH (09:46)
[2016-05-23] MEDS: VANCOMYCIN 1,000 MG in 0.9 % SODIUM CHLORIDE 250 ML IV SCH (09:47)
[2016-05-23] MEDS: LORazepam 2 MG/ML VIAL IV PRN ×2 (10:51→11:47)
[2016-05-23] MEDS ORDERED: LORazepam 2 MG/ML VIAL IV PRN (13:59)
[2016-05-23] MEDS ORDERED: HYDROmorphone 2 MG/ML SYRINGE IV PRN (13:59)
[2016-05-23] MEDS ORDERED: LACTOPEROXI/GLUC OXID/POT THIO 1 EACH GEL..EA. TOPICAL PRN (13:59)
[2016-05-23] MEDS ORDERED: ONDANSETRON 4 MG/2 ML VIAL IV PRN (13:59)
[2016-05-23] MEDS ORDERED: 0.9 % SODIUM CHLORIDE 10 ML SYRINGE IV SCH ×2 (14:00)
--- NOTE | 2016-05-24 12:15 | Discharge Summary ---
DATE OF ADMISSION: 05/20/2016 DATE OF DISCHARGE: 05/23/2016 DATE OF : 05/23/2016 TIME OF 14:10. CAUSE OF : Respiratory failure. EVENTS LEADING TO CAUSE OF : 1. End-stage COPD with hypercapnia. 2. Hypercapnic encephalopathy. BRIEF HOSPITAL COURSE: The patient was admitted with end-stage COPD with hypercapnic respiratory failure and encephalopathy. This was her fourth admission in the last 5 weeks. Patient was managed on BiPAP; however, due to deteriorating status and inability to wean off noninvasive ventilation family decided eventually for comfort care. The patient was in agreement with the decision. Shortly after discontinuing BiPAP, the patient . Multiple family members were present. Condolences were offered. AA:[email or web address] Job ID: [id number] Doc ID: [id number] Flaco Chen MD MTDD
== END 2016-05-23 14:05 | disposition expired | DRG 190 ==
LOC: ED 22:04 → ICU 05-20 02:27 → ED 05-20 02:35 → MEDSUR 05-23 13:05
PROVIDERS: ADMIT Internal Medicine; ATTEND Internal Medicine